=== PATIENT | male | born 1940 | race Caucasian/White ===

== ENCOUNTER → 2017-03-11 | Outpatient (CLI) | payer MEDICARE ==
--- NOTE | 2017-03-13 16:25 | US ---
EXAMINATION TYPE: US prostate transrectal DATE OF EXAM: 03/11/2017 COMPARISON: NONE CLINICAL HISTORY: Elevated PSA R97.2. Elevated PSA This examination was performed using the transrectal probe. EXAM MEASUREMENTS: Gland Size: 6.9 x 3.9 x 5.1cm Volume: 71.12ml Predicted PSA: 8.53 Actual PSA (if available):5.3 Enlarged gland. Heterogeneous in appearance. Possible hypoechoic area right base and left apex vs. he terogeneous tissue IMPRESSION: 1. Focal areas of hypoechogenicity within the right base and left apex that could relate to nodules o r heterogenous parenchyma. Prostate MR could be performed if clinically indicated. 2. Enlarged and heterogenous prostate gland with central zone calcifications.
== END | disposition home or self-care (01) ==
LOC: RADUSMAIN 08:48
PROVIDERS: ATTEND Family Medicine
DX: N40.0 Benign prostatic hyperplasia without lower urinary tract symptoms (principal)
CPT/HCPCS: 76872

== ENCOUNTER → 2018-01-06 | Outpatient (CLI) | payer MEDICARE ==
[2018-01-06 11:44] LABS: Blood Urea Nitrogen 9 mg/dL (9-20)
--- NOTE | 2018-01-06 14:49 | CT ---
EXAMINATION TYPE: CT abdomen pelvis w con DATE OF EXAM: 01/06/2018 COMPARISON: None HISTORY: rectal mass, weakness, hx of cva CT DLP: 1321 mGycm Automated exposure control for dose reduction was used. TECHNIQUE: Helical acquisition of images from the lung bases through the pelvis have been completed. CONTRAST: Performed with Oral Contrast and with IV Contrast, patient injected with 100 mL of Isovue 300. FINDINGS: LUNG BASES: Minimal basilar atelectasis suspected, no pleural or pericardial effusion. Coronary arter y calcifications are present. There may be a small hiatal hernia. AORTA: Dense as described calcifications are present along the aorta and peripheral vascular LIVER/GB: No significant abnormality is appreciated. PANCREAS: No significant abnormality is seen. SPLEEN: Small probable splenules are present. ADRENALS: No significant abnormality is seen. KIDNEYS: No significant abnormality is seen. REPRODUCTIVE ORGANS: Prostate is enlarged and shows associated calcifications, abnormal soft tissue p resent posteriorly is inseparable from the abnormal soft tissue extending to the rectum BOWEL: At the level of the rectum there is soft tissue enhancement extends to the level of the prost ate posteriorly. The abnormal soft tissue is poorly defined but measures approximately 3.3 cm in AP d imension, 4 cm in transverse dimension, 3.8 cm in cephalad to caudal dimension. Abnormal thickening i s present along the sigmoid colon which is indeterminate, there is diverticular change. Small duodena l diverticulum suspected at the third portion of the duodenum FREE AIR: No Free Air visible. ASCITES: None visible. PELVIC ADENOPATHY: None visualized. RETROPERITONEAL ADENOPATHY: No Retroperitoneal Adenopathy visible. URINARY BLADDER: Bladder wall thickening may be due to chronic outlet obstruction. OSSEOUS STRUCTURES: Degenerative disc changes are present in the visualized spine, partial sacraliza tion L5 suspected, there is facet arthropathy. IMPRESSION: FINDINGS COMPATIBLE WITH PATIENT'S HISTORY. SOFT TISSUE MASS IS SUSPECTED DESCRIBED AT THE ANTERIO R ASPECT OF THE RECTUM, THIS IS POORLY DEFINED, POORLY CHARACTERIZED. ADDITIONAL FINDINGS ABOVE
== END ==
LOC: RADCTMAIN 10:08
PROVIDERS: ATTEND Urology
DX: K62.89 Other specified diseases of anus and rectum (principal)
CPT/HCPCS: 82565; 84520; 74177; 36415; Q9967

== ENCOUNTER 2018-01-26 00:06 | Emergency (ER) | payer MEDICARE ==
--- NOTE | 2018-01-26 00:34 | ED ---
General Adult HPI - General Chief complaint: Recheck/Abnormal Lab/Rx Stated complaint: Male Time Seen by Provider: 01/26/18 00:27 Source: patient Mode of arrival: wheelchair Limitations: no limitations - History of Present Illness Initial comments: 's patient is 77-year-old man who presents with severe suprapubic pressure type pain. Patient states that he feels that he has to urinate but has not been able to pass any urine since 9 PM. He had a similar episode once following a surgery and had urinary retention due to the anesthesia. Patient denies other symptoms at the moment. -: hour(s) Location: abdomen Radiation: non-radiation Quality: other Consistency: constant (Pressure) Improves with: none Worsens with: none Associated Symptoms: denies other symptoms - Related Data Allergies Allergy/AdvReac Type Severity Reaction Status Date / Time Penicillins Allergy Unknown Verified 01/26/18 00:12 Childhood Review of Systems ROS Statement: Those systems with pertinent positive or pertinent negative responses have been documented in the HPI. ROS Other: All systems not noted in ROS Statement are negative. Constitutional: Denies: fever, chills Respiratory: Denies: cough, dyspnea Cardiovascular: Denies: chest pain, palpitations Gastrointestinal: Reports: as per HPI, abdominal pain. Denies: nausea, vomiting , diarrhea Genitourinary: Reports: as per HPI, urgency, other (Retention). Denies: testicular pain, testicular mass Neurological: Denies: headache Past Medical History Past Medical History: Coronary Artery Disease (CAD), CVA/TIA, Hyperlipidemia, Hypertension History of Any Multi-Drug Resistant Organisms: None Reported Past Surgical History: Appendectomy Additional Past Surgical History / Comment(s): carotid artery Past Psychological History: No Psychological Hx Reported Smoking Status: Former smoker Past Alcohol Use History: Occasional Past Drug Use History: None Reported General Exam Limitations: no limitations General appearance: alert, in distress Head exam: Present: atraumatic, normocephalic Eye exam: Present: normal appearance Respiratory exam: Present: normal lung sounds bilaterally. Absent: respiratory distress, wheezes, rales, rhonchi, stridor Cardiovascular Exam: Present: regular rate, normal rhythm, normal heart sounds. Absent: systolic murmur, diastolic murmur, rubs, gallop GI/Abdominal exam: Present: soft, guarding, other (There is supra pubic fullness and guarding consistent with bladder). Absent: distended, tenderness, rebound, rigid, pulsatile mass, hernia Extremities exam: Present: normal inspection. Absent: pedal edema Skin exam: Present: warm, dry, intact, normal color. Absent: rash Course Vital Signs 01/26/18 00:07 Temperature 97.8 F Pulse Rate 83 Respiratory 26 H Rate Blood Pressure 198/92 O2 Sat by Pulse 99 Oximetry Disposition Clinical Impression: Urinary retention Disposition: HOME SELF-CARE Condition: Fair Instructions: Urinary Retention in Men (ED) Is patient prescribed a controlled substance at d/c from ED?: No Referrals: Walt Rich DO [Primary Care Provider] - 1-2 days Alberto Garsia MD [STAFF PHYSICIAN] - 1-2 days
[2018-01-26] MEDS ORDERED: LIDOCAINE URO-JET JELLY 2% 5 ML KIT URETHRAL ONE (00:39)
[2018-01-26 01:47] LABS: Appearance,Urine Clear (Clear); Bilirubin,Urine Negative (Negative); Blood,Urine Trace (Negative); Color,Urine Colorless; Glucose,Urine (UA) Negative (Negative); Ketones,Urine Negative (Negative); Leukocyte Esterase,Urine Negative (Negative); Nitrite,Urine Negative (Negative); Protein,Urine Negative (Negative); RBC,Urine <1 /hpf (0-5); Specific Gravity,Urine 1.003 (1.001-1.035); Urobilinogen,Urine <2.0 mg/dL (<2.0); WBC,Urine <1 /hpf (0-5)
[2018-01-26 02:09] VITALS: BP 145/88; PULSE 79; RESP 16; TEMP 97.3
== END 2018-01-26 02:08 | disposition home or self-care (01) ==
LOC: EC 00:06 → SUPCPDRO 00:06 → EC 02:08
DX: R33.9 Retention of urine, unspecified (principal); R10.30 Lower abdominal pain, unspecified; Z87.891 Personal history of nicotine dependence; Z88.0 Allergy status to penicillin; Z90.49 Acquired absence of other specified parts of digestive tract
CPT/HCPCS: 81001; 99284

== ENCOUNTER 2018-01-28 20:41 | Emergency (ER) | payer MEDICARE ==
--- NOTE | 2018-01-28 21:11 | ED ---
General Adult HPI - General Chief complaint: Urogenital Stated complaint: Not able to urinate Source: patient Mode of arrival: wheelchair Limitations: no limitations - History of Present Illness Initial comments: Dictation was produced using [employer] dictation software. please excuse any grammatical, word or spelling errors. Chief Complaint: 77-year-old male with recent visit for urinary retention presents with recurrent urinary retention. History of Present Illness: Patient is a 77-year-old male who was seen in our emergency department yesterday. Patient states he had an episode of urinary retention. He was seen yesterday and a Mcfarlane was placed. He was discharged and told to follow up outpatient urology. Patient was at the urology clinic when the Mcfarlane was removed. He states that he seen Dr. Hudson. Mcfarlane was removed and patient did not have any complications urinating. Patient presents today with repeated discomfort and inability to urinate. last urination was approximately 2 hours ago. Patient past medical history of coronary artery disease, CVA, hyperlipidemia, hypertension. The ROS documented in this emergency department record has been reviewed and confirmed by me. Those systems with pertinent positive or negative responses have been documented in the HPI. All other systems are other negative and/or noncontributory. - Related Data Home Medications Medication Instructions Recorded Confirmed Aspirin 81 mg PO DAILY 01/28/18 01/28/18 Clopidogrel [Plavix] 75 mg PO DAILY 01/28/18 01/28/18 Finasteride [Proscar] 5 mg PO DAILY 01/28/18 01/28/18 Lisinopril [Zestril] 20 mg PO DAILY 01/28/18 01/28/18 Simvastatin 40 mg PO DAILY 01/28/18 01/28/18 Tamsulosin [Flomax] 0.4 mg PO DAILY 01/28/18 01/28/18 Allergies Allergy/AdvReac Type Severity Reaction Status Date / Time Penicillins Allergy Unknown Verified 01/28/18 20:46 Childhood Review of Systems ROS Statement: Those systems with pertinent positive or pertinent negative responses have been documented in the HPI. ROS Other: All systems not noted in ROS Statement are negative. Past Medical History Past Medical History: Coronary Artery Disease (CAD), CVA/TIA, Hyperlipidemia, Hypertension History of Any Multi-Drug Resistant Organisms: None Reported Past Surgical History: Appendectomy Additional Past Surgical History / Comment(s): carotid artery Past Psychological History: No Psychological Hx Reported Smoking Status: Former smoker Past Alcohol Use History: Occasional Past Drug Use History: None Reported General Exam - General Exam Comments Initial Comments: Physical examination: General: Alert and oriented -4, acute distress HEENT: Normocephalic atraumatic, extraocular muscles intact, pupils equal round reactive to light and accommodation Cardiovascular: Heart is regular rate and rhythm, no murmurs rubs or gallops Chest: Lungs clear to auscultation bilaterally, no tenderness to palpation of the chest wall Abdomen: Suprapubic fullness Musculoskeletal: No peripheral edema, DP pulses and radial pulses 2+ bilaterally Neurologic: Cranial nerves II-12 intact, no focal neurologic deficits, no ataxia Skin: No rashes or lesions Limitations: no limitations Course Vital Signs 01/28/18 01/28/18 20:44 23:02 Temperature 97.9 F 97.6 F Pulse Rate 82 68 Respiratory 16 18 Rate Blood Pressure 165/79 165/77 O2 Sat by Pulse 99 98 Oximetry Medical Decision Making - Medical Decision Making ED course: 77-year-old male with recent history of urinary retention status post Mcfarlane removal today presents with recurrent urinary retention. Vital signs upon arrival are within normal limits. Patient appears uncomfortable. There is suprapubic fullness. Bladder scan showed greater than 1 L of urine. Mcfarlane catheter was placed using 16-Spanish Mcfarlane. Patient reports immediate relief after Mcfarlane was placed. Gross urine evaluation showed clear urine.Laboratory evaluation obtained. No signs of kidney failure. Creatinine is 0.76. Urine is 9. Urinalysis shows small blood but no signs of infection. Patient discharged with Mcfarlane. He is told to follow-up with neurology again. Patient is understandable and agreeable to plan. - Lab Data Result diagrams: 01/28/18 21:20 Lab Results 01/28/18 01/28/18 Range/Units 21:20 21:20 Sodium 139 (137-145) mmol/L Potassium 3.4 L (3.5-5.1) mmol/L Chloride 107 (98-107) mmol/L Carbon Dioxide 18 L (22-30) mmol/L Anion Gap 14 mmol/L BUN 9 (9-20) mg/dL Creatinine 0.76 (0.66-1.25) mg/dL Est GFR (CKD-EPI)AfAm >90 (>60 ml/min/1.73 sqM) Est GFR (CKD-EPI)NonAf 88 (>60 ml/min/1.73 sqM) Glucose 102 H (74-99) mg/dL Calcium 8.9 (8.4-10.2) mg/dL Urine Color Light Yellow Urine Appearance Clear (Clear) Urine pH 6.0 (5.0-8.0) Ur Specific Foster 1.003 (1.001-1.035) Urine Protein Negative (Negative) Urine Glucose (UA) Negative (Negative) Urine Ketones Negative (Negative) Urine Blood Small H (Negative) Urine Nitrite Negative (Negative) Urine Bilirubin Negative (Negative) Urine Urobilinogen <2.0 (<2.0) mg/dL Ur Leukocyte Esterase Negative (Negative) Urine RBC <1 (0-5) /hpf Amorphous Sediment Rare H (None) /hpf Disposition Clinical Impression: Urinary retention Disposition: HOME SELF-CARE Condition: Good Instructions: Urinary Retention in Men (ED) Is patient prescribed a controlled substance at d/c from ED?: No Referrals: Walt Rich DO [Primary Care Provider] - 1-2 days Time of Disposition: 00:15
[2018-01-28 21:51] LABS: Amorphous Sediment,Urine Rare /hpf; Appearance,Urine Clear (Clear); Bilirubin,Urine Negative (Negative); Blood,Urine Small (Negative); Color,Urine Light Yellow; Glucose,Urine (UA) Negative (Negative); Ketones,Urine Negative (Negative); Leukocyte Esterase,Urine Negative (Negative); Nitrite,Urine Negative (Negative); Protein,Urine Negative (Negative); RBC,Urine <1 /hpf (0-5); Specific Gravity,Urine 1.003 (1.001-1.035); Urobilinogen,Urine <2.0 mg/dL (<2.0)
[2018-01-28 22:21] LABS: Anion Gap 14 mmol/L; Blood Urea Nitrogen 9 mg/dL (9-20); Calcium 8.9 mg/dL (8.4-10.2); Carbon Dioxide 18 mmol/L (22-30); Chloride 107 mmol/L (98-107); Glucose 102 mg/dL (74-99); Potassium 3.4 mmol/L (3.5-5.1); Sodium 139 mmol/L (137-145)
[2018-01-28 23:03] VITALS: RESP 18
[2018-01-29 00:32] VITALS: BP 175/82; PULSE 72; TEMP 97.9
== END 2018-01-29 00:25 | disposition home or self-care (01) ==
LOC: EC 20:41
DX: R33.9 Retention of urine, unspecified (principal); I25.10 Atherosclerotic heart disease of native coronary artery without angina pectoris; E78.5 Hyperlipidemia, unspecified; I10 Essential (primary) hypertension; Z86.73 Personal history of transient ischemic attack (TIA), and cerebral infarction without residual deficits; Z87.891 Personal history of nicotine dependence; Z79.82 Long term (current) use of aspirin; Z79.02 Long term (current) use of antithrombotics/antiplatelets; Z79.899 Other long term (current) drug therapy; Z88.0 Allergy status to penicillin; Z98.890 Other specified postprocedural states
CPT/HCPCS: 36415; 51702; 80048; 81001; 87086; 99284

== ENCOUNTER → 2018-02-07 | Outpatient (CLI) | payer MEDICARE ==
--- NOTE | 2018-02-08 09:24 | NM ---
EXAMINATION TYPE: NM bone scan whole body DATE OF EXAM: 02/07/2018 COMPARISON: CT 01/06/2018 HISTORY: Prostate cancer Delayed whole-body scanning was performed following the injection of 25 mCi Tc 99m MDP. Images acqui red 4 hours post injection. FINDINGS: There is intense abnormal uptake along the left acetabulum. Abnormal uptake involving the knees, ankles, feet and shoulders likely post arthritic. Nonspecific uptake at the lumbosacral junction and throughout the thoracic spine. Abnormal uptake in the left sternoclavicular joint. Finding nonspecific. Nonspecific uptake along the lateral margin of the left clavicle. IMPRESSION: 1. Abnormal uptake involving the left acetabulum is intense but demonstrates no corresponding CT abno rmality. Finding therefore nonspecific. 2 nonspecific uptake along the lateral margin of the left sternum which x-ray correlation is recommen ded. 3. Uptake throughout the thoracic vertebral column is nonspecific but likely degenerative. Correlate with x-ray. 4 abnormal uptake along the left clavicle correlate with x-ray.
== END | disposition home or self-care (01) ==
LOC: RADNMMAIN 11:14
PROVIDERS: ATTEND Surgery
DX: C61 Malignant neoplasm of prostate (principal)
CPT/HCPCS: 78306; A9503

== ENCOUNTER → 2018-02-28 | Outpatient (CLI) | payer MEDICARE | LOC: LABWHC1 13:50 | PROVIDERS: ATTEND Radiology Radiation Oncology | DX: C61 Malignant neoplasm of prostate (principal) | CPT/HCPCS: 36415; 84153 ==

== ENCOUNTER → 2018-03-23 | Outpatient (CLI) | payer MEDICARE ==
--- NOTE | 2018-03-25 09:18 | MR ---
EXAMINATION TYPE: MR pelvis wo/w con DATE OF EXAM: 03/23/2018 COMPARISON: CT abdomen and pelvis January 06, 2018. Nuclear medicine bone scan February 07, 2018 IMAGE QUALITY: Good. 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 PSA: 10.3 ng/ml from February 28, 2018. Recent Biopsy and Date: January 25, 2018 Pathology Report (If Applicable): See above TECHNIQUE: Examination was performed using a 3T MRI without an endorectal coil. Multiparametric imaging was perf ormed with T2 multiplanar sequences, axial diffusion weighted imaging and dynamic contrast enhanced i maging, utilizing 7.5 mL intravenous Gadavist gadolinium contrast. FINDINGS: PROSTATE VOLUME: 4.5 cm SI x 4.1 cm AP x 4.3 cm LR Vol= 38.90 cc PSA DENSITY: 4.668 ng/ml/cc There is transitional zone hypertrophy, peripheral zone shows large focal area of mildly hypointense signal on ADC mapping with mildly increased signal on diffusion weighted images centered to the right of midline but extending to left of midline measuring greater than 1.5 cm roughly 3.5 cm transversel y image 180 series 607. Corresponding irregular lesion of low T2 signal noted. There is irregularity of the posterior margin or capsule consistent with extraprostatic extension, there appears to be invo lvement of the central aspect of the bilateral seminal vesicles near the base seen best on axial imag e 15, contiguous inferior extension to involve mid segments is present with extracapsular extension a s there is indistinct fat plane from anterior wall of rectum inferiorly near the apex. CT shows neville r visualization of larger irregular mass this is best seen on T1-weighted images axial image 11. Kit esponding to area of concern axial image [address] Transitional known shows heterogeneity signal without areas of definitive restricted diffusion. Bladder is poorly distended with prominent trabeculae and thickened wall up to 11 mm. There are diverticula in the visualized colon. No suspicious perirectal or periprostatic adenopathy i s clearly seen. Visualized bone shows suspicious focal lesion near recent left ischial tuberosity measuring roughly 3 .0 x 1.4 cm axial image 21 with subtle restricted diffusion. This correlates with recent bone scan fi ndings. IMPRESSION: Large irregular cancer with extraprostatic extension. Suspected left bone metastatic lesion. Highest Assessment Category: 5 MRI Stage: T 4 N 0 M 1b based on review of pelvic images. False negative rates for MRI range from 5-20% depending on risk profile. Assessment Categories: 1 ? Very low (clinically significant cancer is highly unlikely to be present) 2 ? Low (clinically significant cancer is unlikely to be present) 3 ? Intermediate (the presence of clinically significant cancer is equivocal) 4 ? High (clinically significant cancer is likely to be present) 5 ? Very high (clinically significant cancer is highly likely to be present) Locations: PZ = peripheral zone; TZ = transition zone CZ=central zone; AFS = anterior fibromuscular stroma a=anterior half (i.e. PZa=anterior half of peripheral zone); pm= posterior medial (i.e PZpm) pl = postero-lateral (i.e. PZpl); p = posterior half (i.e. TZp) ; a = anterior half (i.e TZa or P Za) Other: N=no or no; E= equivocal; Y=yes EPE = extraprostatic extension NVB = neurovascular bundle NA = not applicable/not available
== END ==
LOC: RADMRIMAIN 14:13
PROVIDERS: ATTEND Radiology Radiation Oncology
DX: C61 Malignant neoplasm of prostate (principal)
CPT/HCPCS: 72197; A9585

== ENCOUNTER → 2018-08-25 | Outpatient (CLI) | payer MEDICARE ==
--- NOTE | 2018-08-25 16:17 | NM ---
EXAMINATION TYPE: NM bone scan whole body DATE OF EXAM: 08/25/2018 COMPARISON: Bone scan 02/07/2018 HISTORY: Prostate carcinoma Delayed whole-body scanning was performed following the injection of 23.9 mCi Tc 99m MDP. Images acq uired 3.5 hours post injection. FINDINGS: Uptake at the level of the sternoclavicular joint on the left is again noted. Soft tissue uptake is n ormal. Uptake within the left knee and ankle is again seen and is likely degenerative. Uptake in the left ischium is somewhat less conspicuous than on prior exam. Prevertebral uptake is similar and like ly degenerative. 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 Sternoclavicular junction uptake again seen on the left.
== END ==
LOC: RADNMMAIN 10:03
PROVIDERS: ATTEND Radiology Radiation Oncology
DX: C61 Malignant neoplasm of prostate (principal); C79.51 Secondary malignant neoplasm of bone
CPT/HCPCS: 84153; 78306; A9503

== ENCOUNTER → 2019-10-25 | Outpatient (CLI) | payer OTHER ==
--- NOTE | 2019-10-25 14:59 | NM ---
EXAMINATION TYPE: NM bone scan whole body DATE OF EXAM: 10/25/2019 COMPARISON: 08/25/2018 HISTORY: Prostate carcinoma Delayed whole-body scanning was performed following the injection of 23.5 mCi Tc 99m MDP. Images acq uired 4 hours post injection. FINDINGS: There is new mild to moderate intensity uptake involving the mid cervical spine on the right. Stable abnormal uptake involving the left shoulder likely post arthritic. Stable abnormal uptake involving the sternoclavicular joint on the left stable from prior exam and li pao are post arthritic. Abnormal uptake involving the left knee, foot and ankle is stable and likely post arthritic. New uptake involving the right knee likely post arthritic. There is improvement in the uptake previously described within the left acetabulum. No new areas of a bnormal uptake are seen. IMPRESSION: 1. Stable uptake involving the sternoclavicular joint. 2. There is improvement of abnormal uptake previously described involving the left acetabulum which w as suspected to be metastatic area 3. New mild to moderate intensity uptake involving the cervical spine on the right likely post arthri tic.
== END | disposition home or self-care (01) ==
LOC: RADNMMAIN 09:55
PROVIDERS: ATTEND Radiology Radiation Oncology
DX: C61 Malignant neoplasm of prostate (principal); Z92.3 Personal history of irradiation; Z79.818 Long term (current) use of other agents affecting estrogen receptors and estrogen levels; Z87.891 Personal history of nicotine dependence; R94.8 Abnormal results of function studies of other organs and systems
CPT/HCPCS: 84153; 78306; 36415; A9503

== ENCOUNTER 2020-03-05 11:45 | Emergency (ER) | payer OTHER, MEDICARE ==
[2020-03-05] MEDS ORDERED: ACETAMINOPHEN TAB 500 MG TAB PO STA (13:00)
--- NOTE | 2020-03-05 13:18 | ED ---
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 Reports that the last 3 days feels like he has been more weak generalized. Denies any focal area of weakness or pain. Denies any chest pain, sob, abdominal pain. I did note a mild dry cough when evaluated patient. Denies any other complaints. Systemic: Pt denies fatigue, fever/chills, rash. Pt denies weakness, night sweats, weight loss. Neuro: Pt denies headache, visual disturbances, syncope or pre-syncope. HEENT: Pt denies ocular discharge or irritation, otalgia, rhinorrhea, pharyngitis or notable lymphadenopathy. Cardiopulmonary: Pt denies chest pain, SOB, heart palpitations, dyspnea on exertion. Abdominal/GI: Pt denies abdominal pain, n/v/d. : Pt denies dysuria, burning w/ urination, frequency/urgency. Denies new onset urinary or bowel incontinence. MSK: Pt denies myalgia, loss of strength or function in extremities. Neuro: Pt denies paresthesias. - Related Data Home Medications Medication Instructions Recorded Confirmed Aspirin 81 mg PO DAILY 01/28/18 01/28/18 Clopidogrel [Plavix] 75 mg PO DAILY 01/28/18 01/28/18 Finasteride [Proscar] 5 mg PO DAILY 01/28/18 01/28/18 Simvastatin 40 mg PO DAILY 01/28/18 01/28/18 Tamsulosin [Flomax] 0.4 mg PO DAILY 01/28/18 01/28/18 lisinopriL [Zestril] 20 mg PO DAILY 01/28/18 01/28/18 Previous Rx's Medication Instructions Recorded Albuterol Inhaler [Ventolin Hfa 1 puff INHALATION RT-QID PRN #1 03/05/20 Inhaler] inhaler Azithromycin [Zithromax Z-pack (6 0 mg PO DIRECTED #6 tab 03/05/20 tabs)] Allergies Allergy/AdvReac Type Severity Reaction Status Date / Time Penicillins Allergy Unknown Verified 03/05/20 12:01 Childhood Review of Systems ROS Statement: Those systems with pertinent positive or pertinent negative responses have been documented in the HPI. ROS Other: All systems not noted in ROS Statement are negative. Past Medical History Past Medical History: Coronary Artery Disease (CAD), CVA/TIA, Hyperlipidemia, Hypertension History of Any Multi-Drug Resistant Organisms: None Reported Past Surgical History: Appendectomy Additional Past Surgical History / Comment(s): carotid artery Past Psychological History: No Psychological Hx Reported Smoking Status: Former smoker Past Alcohol Use History: Occasional Past Drug Use History: None Reported General Exam - General Exam Comments Initial Comments: Constitutional: NAD, AOX3, Pt has pleasant affect. HEENT: NC/AT, trachea midline, neck supple, no lymphadenopathy. Posterior pharynx non erythematous, without exudates. External ears appear normal, without discharge. Mucous membranes moist. Eyes PERRLA, EOM intact. There is no scleral icterus. No pallor noted. Cardiopulmonary: RRR, no murmurs, rubs or gallops, no JVD noted. Lungs CTAB in anterior and posterior pool. No peripheral edema. Abdominal exam: Abdomen soft and non-distended. Abdomen non-tender to palpation in all 4 quadrants. Bowel sounds active in LLQ. No hepatosplenomegaly. No ecchymosis Neuro: CN II-XII intact. No nuchal rigidity. No raccon eyes, no feliciano sign, no hemotympanum. No cervical spinal tenderness. MSK: Full active ROM in upper and lower extremities, 5/5 stregnth. 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 Reports that the last 3 days feels like he has been more weak generalized. Denies any focal area of weakness or pain. Then a chest management with abdominal pain. Patient does not report any coughing however I did note a mild dry cough when evaluated patient. Denies any other complaints. Patient vital signs please fever patient administered antipyretic. Physical exam negative for acute pathology. Laboratory investigations revealed mild neutropenia, lymphocytopenia. Coronavirus is positive. Chest x-ray displayed COPD left upper lobe peripheral infiltrate correlation for pneumonia. Patient was offered admission but preferred to go home follow-up with his primary care provider and return for any worsening symptoms. Patient was placed on azithromycin. Patient will follow-up with primary care provider and return to ER if any worsening symptoms. Case discussed with Dr. Tineo. - Lab Data Result diagrams: 03/05/20 13:31 03/05/20 13:31 Lab Results 03/05/20 03/05/20 03/05/20 Range/Units 13:31 13:31 13:31 WBC 2.9 L (3.8-10.6) k/uL RBC 4.70 (4.30-5.90) m/uL Hgb 15.8 (13.0-17.5) gm/dL Hct 44.8 (39.0-53.0) % MCV 95.2 (80.0-100.0) fL MCH 33.6 (25.0-35.0) pg MCHC 35.3 (31.0-37.0) g/dL RDW 12.1 (11.5-15.5) % Plt Count 104 L (150-450) k/uL MPV 7.3 Neutrophils % 82 % Lymphocytes % 8 % Monocytes % 7 % Eosinophils % 1 % Basophils % 2 % Neutrophils # 2.4 (1.3-7.7) k/uL Lymphocytes # 0.2 L (1.0-4.8) k/uL Monocytes # 0.2 (0-1.0) k/uL Eosinophils # 0.0 (0-0.7) k/uL Basophils # 0.1 (0-0.2) k/uL Sodium (137-145) mmol/L Potassium (3.5-5.1) mmol/L Chloride (98-107) mmol/L Carbon Dioxide (22-30) mmol/L Anion Gap mmol/L BUN (9-20) mg/dL Creatinine (0.66-1.25) mg/dL Est GFR (CKD-EPI)AfAm (>60 ml/min/1.73 sqM) Est GFR (CKD-EPI)NonAf (>60 ml/min/1.73 sqM) Glucose (74-99) mg/dL Plasma Lactic Acid Kishore (0.7-2.0) mmol/L Calcium (8.4-10.2) mg/dL Total Bilirubin (0.2-1.3) mg/dL AST (17-59) U/L ALT (4-49) U/L Alkaline Phosphatase (38-126) U/L Total Protein (6.3-8.2) g/dL Albumin (3.5-5.0) g/dL Urine Color Yellow Urine Appearance Clear (Clear) Urine pH 6.0 (5.0-8.0) Ur Specific [place] 1.028 (1.001-1.035) Urine Protein 1+ H (Negative) Urine Glucose (UA) Negative (Negative) Urine Ketones 1+ H (Negative) Urine Blood Negative (Negative) Urine Nitrite Negative (Negative) Urine Bilirubin Negative (Negative) Urine Urobilinogen 2.0 (<2.0) mg/dL Ur Leukocyte Esterase Negative (Negative) Urine RBC 2 (0-5) /hpf Urine WBC 4 (0-5) /hpf Hyaline Casts 3 H (0-2) /lpf Urine Mucus Many H (None) /hpf Coronavirus (PCR) Detected A (Not Detectd) Influenza Type A RNA (Not Detectd) Influenza Type B (PCR) (Not Detectd) 03/05/20 03/05/20 03/05/20 Range/Units 13:31 13:31 14:01 WBC (3.8-10.6) k/uL RBC (4.30-5.90) m/uL Hgb (13.0-17.5) gm/dL Hct (39.0-53.0) % MCV (80.0-100.0) fL MCH (25.0-35.0) pg MCHC (31.0-37.0) g/dL RDW (11.5-15.5) % Plt Count (150-450) k/uL MPV Neutrophils % % Lymphocytes % % Monocytes % % Eosinophils % % Basophils % % Neutrophils # (1.3-7.7) k/uL Lymphocytes # (1.0-4.8) k/uL Monocytes # (0-1.0) k/uL Eosinophils # (0-0.7) k/uL Basophils # (0-0.2) k/uL Sodium 135 L (137-145) mmol/L Potassium 4.5 (3.5-5.1) mmol/L Chloride 102 (98-107) mmol/L Carbon Dioxide 23 (22-30) mmol/L Anion Gap 10 mmol/L BUN 12 (9-20) mg/dL Creatinine 0.93 (0.66-1.25) mg/dL Est GFR (CKD-EPI)AfAm >90 (>60 ml/min/1.73 sqM) Est GFR (CKD-EPI)NonAf 78 (>60 ml/min/1.73 sqM) Glucose 107 H (74-99) mg/dL Plasma Lactic Acid [place] 1.2 (0.7-2.0) mmol/L Calcium 9.1 (8.4-10.2) mg/dL Total Bilirubin 1.0 (0.2-1.3) mg/dL AST 48 (17-59) U/L ALT 30 (4-49) U/L Alkaline Phosphatase 74 (38-126) U/L Total Protein 7.7 (6.3-8.2) g/dL Albumin 4.3 (3.5-5.0) g/dL Urine Color Urine Appearance (Clear) Urine pH (5.0-8.0) Ur Specific [place] (1.001-1.035) Urine Protein (Negative) Urine Glucose (UA) (Negative) Urine Ketones (Negative) Urine Blood (Negative) Urine Nitrite (Negative) Urine Bilirubin (Negative) Urine Urobilinogen (<2.0) mg/dL Ur Leukocyte Esterase (Negative) Urine RBC (0-5) /hpf Urine WBC (0-5) /hpf Hyaline Casts (0-2) /lpf Urine Mucus (None) /hpf Coronavirus (PCR) (Not Detectd) Influenza Type A RNA Not Detected (Not Detectd) Influenza Type B (PCR) Not Detected (Not Detectd) Disposition Clinical Impression: COVID-19 Disposition: HOME SELF-CARE Condition: Stable Instructions (If sedation given, give patient instructions): Upper Respiratory Infection (ED) Additional Instructions: Follow up with PCP tomorrow. Return to ED with any worsening symptoms. Prescriptions: Albuterol Inhaler [Ventolin Hfa Inhaler] 1 puff INHALATION RT-QID PRN #1 inhaler PRN Reason: wheezing Azithromycin [Zithromax Z-pack (6 tabs)] 0 mg PO DIRECTED #6 tab Is patient prescribed a controlled substance at d/c from ED?: No Referrals: [facility],Clinic [Primary Care Provider] - 1-2 days
[2020-03-05 13:57] LABS: Basophils # (A) 0.1 k/uL (0-0.2); Basophils % (A) 2 %; Eosinophils % (A) 1 %; HCT 44.8 % (39.0-53.0); HGB 15.8 gm/dL (13.0-17.5); Lymphocytes # (A) 0.2 k/uL (1.0-4.8); Lymphocytes % (A) 8 %; MCH 33.6 pg (25.0-35.0); MCHC 35.3 g/dL (31.0-37.0); MCV 95.2 fL (80.0-100.0); Mean Platelet Volume 7.3; Monocytes # (A) 0.2 k/uL (0-1.0); Monocytes % (A) 7 %; Neutrophils # (A) 2.4 k/uL (1.3-7.7); Neutrophils % (A) 82 %; Platelet Count 104 k/uL (150-450); RDW 12.1 % (11.5-15.5); WBC 2.9 k/uL (3.8-10.6)
[2020-03-05 14:01] LABS: Appearance,Urine Clear (Clear); Bilirubin,Urine Negative (Negative); Blood,Urine Negative (Negative); Color,Urine Yellow; Glucose,Urine (UA) Negative (Negative); Hyaline Casts,Urine 3 /lpf (0-2); Ketones,Urine 1+ (Negative); Leukocyte Esterase,Urine Negative (Negative); Mucus,Urine Many /hpf; Nitrite,Urine Negative (Negative); Protein,Urine 1+ (Negative); RBC,Urine 2 /hpf (0-5); Specific Gravity,Urine 1.028 (1.001-1.035); WBC,Urine 4 /hpf (0-5)
[2020-03-05 14:05] LABS: ALT 30 U/L (4-49); AST 48 U/L (17-59); African American GFR (CKD) >90 (>60 ml/min/1.73 sqM); Albumin 4.3 g/dL (3.5-5.0); Alkaline Phosphatase 74 U/L (38-126); Anion Gap 10 mmol/L; Blood Urea Nitrogen 12 mg/dL (9-20); Calcium 9.1 mg/dL (8.4-10.2); Carbon Dioxide 23 mmol/L (22-30); Chloride 102 mmol/L (98-107); Glucose 107 mg/dL (74-99); Non-African American GFR(CKD) 78 (>60 ml/min/1.73 sqM); Potassium 4.5 mmol/L (3.5-5.1); Sodium 135 mmol/L (137-145); Total Protein 7.7 g/dL (6.3-8.2)
--- NOTE | 2020-03-05 14:15 | XR ---
EXAMINATION TYPE: XR chest 2V DATE OF EXAM: 03/05/2020 COMPARISON: NONE TECHNIQUE: PA and lateral views submitted. HISTORY: Fever and cough FINDINGS: There is a vague consolidation within the peripheral margin of the left upper lobe. Faint nodularity in the right upper lobe. Heart prominent with no pleural effusion, or overt failure or pneumothorax. Underlying COPD and diffuse osteopenia noted. Atherosclerotic change aorta. Hypertrophic and degenera tive change of the spine. IMPRESSION: 1. COPD with left upper lobe peripheral infiltrate correlate for pneumonia. Vague nodularity in the r ight upper lobe could be followed with short-term follow-up CT scan to assess for nodule.
[2020-03-05] MEDS ORDERED: AZITHROMYCIN 500 MG in SODIUM CHLORIDE 0.9% 250 ML IVPB STA (14:26)
[2020-03-05] MEDS ORDERED: AZITHROMYCIN 500 MG TAB PO STA (15:00)
[2020-03-05 15:11] VITALS: BP 100/49; PULSE 70; RESP 18; TEMP 99
== END 2020-03-05 15:10 | disposition home or self-care (01) ==
LOC: EC 11:45
DX: U07.1 COVID-19 (principal); E78.5 Hyperlipidemia, unspecified; I10 Essential (primary) hypertension; I69.351 Hemiplegia and hemiparesis following cerebral infarction affecting right dominant side; Z79.82 Long term (current) use of aspirin; Z79.01 Long term (current) use of anticoagulants; Z79.899 Other long term (current) drug therapy; Z87.891 Personal history of nicotine dependence; Z88.0 Allergy status to penicillin
CPT/HCPCS: 36415; 71046; 80053; 81001; 83605; 85025; 87040; 87502; 87635; 99285

== ENCOUNTER 2020-03-11 10:25 | Inpatient (IN) | payer OTHER, MEDICARE ==
[2020-03-11] MEDS ORDERED: ONDANSETRON 4 MG/2 ML VIAL IVP STA (10:50)
[2020-03-11] MEDS ORDERED: SODIUM CHLORIDE 0.9% 1,000 ML IV STA (10:50)
--- NOTE | 2020-03-11 11:00 | ED ---
General Adult HPI - General Chief complaint: Nausea/Vomiting/Diarrhea Stated complaint: No appetite,cough Time Seen by Provider: 03/11/20 10:35 Source: patient, RN notes reviewed Mode of arrival: wheelchair Limitations: physical limitation - History of Present Illness Initial comments: 79-year-old male with a past medical history of CAD, CVA, hyperlipidemia, hypertension who is covid Positive as of 03/05/2020 presents to the emergency room for a chief complaint of diarrhea. Patient reports that he has had diarrhea several times daily for a week now. He reports he is not able to keep anything down. He feels that he is dehydrated and weak. Admits to slight nausea and did vomit x 1 today. He does admit to a slight cough. He denies chest pain shortness of breath. he states he has continued to have fevers on and off. Patient has no other complaints at this time including shortness of breath, chest pain, abdominal pain, nausea or vomiting, headache, or visual changes. - Related Data Home Medications Medication Instructions Recorded Confirmed Aspirin 81 mg PO DAILY 01/28/18 01/28/18 Clopidogrel [Plavix] 75 mg PO DAILY 01/28/18 01/28/18 Finasteride [Proscar] 5 mg PO DAILY 01/28/18 01/28/18 Simvastatin 40 mg PO DAILY 01/28/18 01/28/18 Tamsulosin [Flomax] 0.4 mg PO DAILY 01/28/18 01/28/18 lisinopriL [Zestril] 20 mg PO DAILY 01/28/18 01/28/18 Previous Rx's Medication Instructions Recorded Albuterol Inhaler [Ventolin Hfa 1 puff INHALATION RT-QID PRN #1 03/05/20 Inhaler] inhaler Azithromycin [Zithromax Z-pack (6 0 mg PO DIRECTED #6 tab 03/05/20 tabs)] Allergies Allergy/AdvReac Type Severity Reaction Status Date / Time Penicillins Allergy Unknown Verified 03/11/20 10:33 Childhood Review of Systems ROS Statement: Those systems with pertinent positive or pertinent negative responses have been documented in the HPI. ROS Other: All systems not noted in ROS Statement are negative. Past Medical History Past Medical History: Coronary Artery Disease (CAD), CVA/TIA, Hyperlipidemia, Hypertension History of Any Multi-Drug Resistant Organisms: None Reported Past Surgical History: Appendectomy Additional Past Surgical History / Comment(s): carotid artery Past Psychological History: No Psychological Hx Reported Smoking Status: Former smoker Past Alcohol Use History: Occasional Past Drug Use History: None Reported General Exam Limitations: physical limitation General appearance: alert, in no apparent distress Head exam: Present: atraumatic, normocephalic, normal inspection Eye exam: Present: normal appearance, PERRL, EOMI. Absent: scleral icterus, conjunctival injection, periorbital swelling ENT exam: Present: normal exam, mucous membranes moist Neck exam: Present: normal inspection. Absent: tenderness, meningismus, lymphadenopathy Respiratory exam: Present: normal lung sounds bilaterally. Absent: respiratory distress, wheezes, rales, rhonchi, stridor Cardiovascular Exam: Present: regular rate, normal rhythm, normal heart sounds. Absent: systolic murmur, diastolic murmur, rubs, gallop, clicks GI/Abdominal exam: Present: soft, normal bowel sounds. Absent: distended, tenderness, guarding, rebound, rigid Course Vital Signs 03/11/20 10:26 Temperature 97.0 F L Pulse Rate 70 Respiratory 18 Rate Blood Pressure 126/82 O2 Sat by Pulse 96 Oximetry EKG Findings - EKG Comments: EKG Findings:: Normal sinus rhythm, ventricular rate 71, OH interval 170, QTC 423 Medical Decision Making - Medical Decision Making Vitals are stable. CBC does show lymphocytosis. CMP shows evidence of acute renal failure with a creatinine elevated at 2.33. Urinalysis shows 73 white blood cells with few bacteria. Patient was started on Rocephin. Case was discussed with Dr. Bajwa who is agreeable to nephrology consultation and requests ultrasound of the kidneys ureter and bladder. - Lab Data Result diagrams: 03/11/20 10:54 03/11/20 10:54 Lab Results 03/11/20 03/11/20 03/11/20 Range/Units 10:54 10:54 10:54 WBC 5.5 (3.8-10.6) k/uL RBC 4.69 (4.30-5.90) m/uL Hgb 15.3 (13.0-17.5) gm/dL Hct 44.0 (39.0-53.0) % MCV 93.8 (80.0-100.0) fL MCH 32.7 (25.0-35.0) pg MCHC 34.8 (31.0-37.0) g/dL RDW 12.7 (11.5-15.5) % Plt Count 184 D (150-450) k/uL MPV 7.5 Neutrophils % 91 % Lymphocytes % 4 % Monocytes % 4 % Eosinophils % 1 % Basophils % 0 % Neutrophils # 5.0 (1.3-7.7) k/uL Lymphocytes # 0.2 L (1.0-4.8) k/uL Monocytes # 0.2 (0-1.0) k/uL Eosinophils # 0.0 (0-0.7) k/uL Basophils # 0.0 (0-0.2) k/uL Sodium 139 (137-145) mmol/L Potassium 3.6 (3.5-5.1) mmol/L Chloride 106 (98-107) mmol/L Carbon Dioxide 20 L (22-30) mmol/L Anion Gap 13 mmol/L BUN 32 H (9-20) mg/dL Creatinine 2.33 H (0.66-1.25) mg/dL Est GFR (CKD-EPI)AfAm 30 (>60 ml/min/1.73 sqM) Est GFR (CKD-EPI)NonAf 26 (>60 ml/min/1.73 sqM) Glucose 127 H (74-99) mg/dL Calcium 8.6 (8.4-10.2) mg/dL Magnesium 1.9 (1.6-2.3) mg/dL Total Bilirubin 1.1 (0.2-1.3) mg/dL AST 66 H (17-59) U/L ALT 38 (4-49) U/L Alkaline Phosphatase 78 (38-126) U/L Troponin I (0.000-0.034) ng/mL Total Protein 6.9 (6.3-8.2) g/dL Albumin 3.7 (3.5-5.0) g/dL Amylase 86 (30-110) U/L Lipase 236 (23-300) U/L Urine Color Yellow Urine Appearance Cloudy (Clear) Urine pH 5.5 (5.0-8.0) Ur Specific [place] 1.015 (1.001-1.035) Urine Protein 1+ H (Negative) Urine Glucose (UA) Trace H (Negative) Urine Ketones Negative (Negative) Urine Blood Trace H (Negative) Urine Nitrite Negative (Negative) Urine Bilirubin Negative (Negative) Urine Urobilinogen <2.0 (<2.0) mg/dL Ur Leukocyte Esterase Negative (Negative) Urine RBC 3 (0-5) /hpf Urine WBC 73 H (0-5) /hpf Urine WBC Clumps Moderate H (None) /hpf Ur Squamous Epith Cells 1 (0-4) /hpf Urine Bacteria Few H (None) /hpf Urine Mucus Rare H (None) /hpf 03/11/20 Range/Units 10:54 WBC (3.8-10.6) k/uL RBC (4.30-5.90) m/uL Hgb (13.0-17.5) gm/dL Hct (39.0-53.0) % MCV (80.0-100.0) fL MCH (25.0-35.0) pg MCHC (31.0-37.0) g/dL RDW (11.5-15.5) % Plt Count (150-450) k/uL MPV Neutrophils % % Lymphocytes % % Monocytes % % Eosinophils % % Basophils % % Neutrophils # (1.3-7.7) k/uL Lymphocytes # (1.0-4.8) k/uL Monocytes # (0-1.0) k/uL Eosinophils # (0-0.7) k/uL Basophils # (0-0.2) k/uL Sodium (137-145) mmol/L Potassium (3.5-5.1) mmol/L Chloride (98-107) mmol/L Carbon Dioxide (22-30) mmol/L Anion Gap mmol/L BUN (9-20) mg/dL Creatinine (0.66-1.25) mg/dL Est GFR (CKD-EPI)AfAm (>60 ml/min/1.73 sqM) Est GFR (CKD-EPI)NonAf (>60 ml/min/1.73 sqM) Glucose (74-99) mg/dL Calcium (8.4-10.2) mg/dL Magnesium (1.6-2.3) mg/dL Total Bilirubin (0.2-1.3) mg/dL AST (17-59) U/L ALT (4-49) U/L Alkaline Phosphatase (38-126) U/L Troponin I 0.013 (0.000-0.034) ng/mL Total Protein (6.3-8.2) g/dL Albumin (3.5-5.0) g/dL Amylase (30-110) U/L Lipase (23-300) U/L Urine Color Urine Appearance (Clear) Urine pH (5.0-8.0) Ur Specific [place] (1.001-1.035) Urine Protein (Negative) Urine Glucose (UA) (Negative) Urine Ketones (Negative) Urine Blood (Negative) Urine Nitrite (Negative) Urine Bilirubin (Negative) Urine Urobilinogen (<2.0) mg/dL Ur Leukocyte Esterase (Negative) Urine RBC (0-5) /hpf Urine WBC (0-5) /hpf Urine WBC Clumps (None) /hpf Ur Squamous Epith Cells (0-4) /hpf Urine Bacteria (None) /hpf Urine Mucus (None) /hpf Disposition Clinical Impression: COVID-19, YASIR (acute kidney injury), Diarrhea, UTI (urinary tract infection) Disposition: ADMITTED IP TO THIS HOSP Is patient prescribed a controlled substance at d/c from ED?: No Referrals: [facility],Clinic [Primary Care Provider] - 1-2 days Time of Disposition: 12:26
[2020-03-11 11:21] LABS: Basophils % (A) 0 %; Eosinophils % (A) 1 %; HGB 15.3 gm/dL (13.0-17.5); Lymphocytes # (A) 0.2 k/uL (1.0-4.8); Lymphocytes % (A) 4 %; MCH 32.7 pg (25.0-35.0); MCHC 34.8 g/dL (31.0-37.0); MCV 93.8 fL (80.0-100.0); Mean Platelet Volume 7.5; Monocytes # (A) 0.2 k/uL (0-1.0); Monocytes % (A) 4 %; Neutrophils % (A) 91 %; RBC 4.69 m/uL (4.30-5.90); RDW 12.7 % (11.5-15.5); WBC 5.5 k/uL (3.8-10.6)
[2020-03-11 11:24] LABS: Platelet Count 184 k/uL (150-450)
[2020-03-11 11:26] LABS: Albumin 3.7 g/dL (3.5-5.0); Calcium 8.6 mg/dL (8.4-10.2); Magnesium 1.9 mg/dL (1.6-2.3); Potassium 3.6 mmol/L (3.5-5.1); Total Bilirubin 1.1 mg/dL (0.2-1.3); Total Protein 6.9 g/dL (6.3-8.2)
[2020-03-11 11:27] LABS: Appearance,Urine Cloudy (Clear); Bacteria,Urine Few /hpf; Bilirubin,Urine Negative (Negative); Blood,Urine Trace (Negative); Color,Urine Yellow; Glucose,Urine (UA) Trace (Negative); Ketones,Urine Negative (Negative); Leukocyte Esterase,Urine Negative (Negative); Mucus,Urine Rare /hpf; Nitrite,Urine Negative (Negative); PH, Urine 5.5 (5.0-8.0); Protein,Urine 1+ (Negative); RBC,Urine 3 /hpf (0-5); Specific Gravity,Urine 1.015 (1.001-1.035); Squamous Epithelial Cell,Urine 1 /hpf (0-4); Urobilinogen,Urine <2.0 mg/dL (<2.0); WBC,Urine 73 /hpf (0-5)
[2020-03-11] MEDS ORDERED: cefTRIAXone IN SWFI 1,000 MG/10 ML SYRINGE IVP STA (11:45)
[2020-03-11] MEDS ORDERED: NALOXONE 0.4 MG/ML 1 ML VIAL IV PRN (12:20)
--- NOTE | 2020-03-11 12:26 | XR ---
EXAMINATION TYPE: XR KUB DATE OF EXAM: 03/11/2020 COMPARISON: NONE HISTORY: Pain TECHNIQUE: Single supine KUB image of the abdomen is obtained FINDINGS: Small bowel demonstrates no evidence for dilatation or air fluid levels. Gas and fecal material is seen in non-distended colon. No convincing evidence for pneumoperitoneum. No unusual calcifications. The lung bases are clear. The osseous structures are intact. IMPRESSION: 1. Overall nonobstructive bowel gas pattern.
--- NOTE | 2020-03-11 12:26 | XR ---
EXAMINATION TYPE: XR chest 1V DATE OF EXAM: 03/11/2020 COMPARISON: Chest x-ray 03/05/2020 HISTORY: Covid pneumonia, cough and shortness of breath TECHNIQUE: Single frontal view of the chest is obtained. FINDINGS: Bilateral airspace disease is present. Apical pleural thickening is noted. There is no pne umothorax or pleural effusion. Overlying artifacts noted over the abdomen. There are overlying leads in the chest. Prominent lung volumes may be indicative of COPD. Heart size is normal. Aorta is dense. IMPRESSION: Findings consistent with bilateral pneumonia.
[2020-03-11] MEDS: SODIUM CHLORIDE 0.9% 1,000 ML IV SCH (13:37)
--- NOTE | 2020-03-11 14:14 | US ---
EXAMINATION TYPE: US kidneys/renal and bladder DATE OF EXAM: 03/11/2020 COMPARISON: CT 01/06/18 CLINICAL HISTORY: prakash. EXAM MEASUREMENTS: Right Kidney: 12.4 x 5.6 x 5.1 cm Left Kidney: 11.5 x 6.5 x 6.0 cm Post Void Residual Volume: Not measured mL Right Kidney: No hydronephrosis or masses seen Left Kidney: No hydronephrosis or masses seen Bladder: wnl Bilateral Jets seen: Yes There is no evidence for hydronephrosis at this point in time. No nephrolithiasis is seen. No jayme s are identified. Cortical medullary differentiation is maintained. The urinary bladder is anechoic. Bilateral ureteral jets are seen. IMPRESSION: No evident hydronephrosis.
--- NOTE | 2020-03-11 14:33 | P.HPIM ---
History of Present Illness Patient is a pleasant 70-year-old male came in with complaints of diarrhea. Patient was having several episodes of diarrhea patient had was having generalized body aches fatigue. Patient is found to have Covid 19 which was diagnosed the 10th of this month. Patient was having these symptoms for about a week. Patient did have nausea vomiting as well. Patient has not been eating or drinking since the symptoms and patient is found to be in acute renal failure. Patient was really doesn't have any fever. Patient denied any shortness of breath is having cough. Patient had a chest x-ray which showed bilateral pneumonia which is consistent with Covid 19. Patient denied any UTI-like symptoms but the because of mildly abnormal uterine patient was given a dose of Rocephin in ER. Review of Systems REVIEW OF SYSTEMS: CONSTITUTIONAL: As mentioned in HPI HEENT: No recent visual problems or hearing problems. Denied any sore throat. CARDIOVASCULAR: No chest pain, orthopnea, PND, no palpitations, no syncope. PULMONARY: No shortness of breath, no hemoptysis. GASTROINTESTINAL:, no abdominal pain. NEUROLOGICAL: No headaches, no weakness, no numbness. HEMATOLOGICAL: Denies any bleeding or petechiae. GENITOURINARY: Denies any burning micturition, frequency, or urgency. MUSCULOSKELETAL/RHEUMATOLOGICAL: Denies any joint pain, swelling, or any muscle pain. ENDOCRINE: Denies any polyuria or polydipsia. The rest of the 14-point review of systems is negative. Past Medical History Past Medical History: Coronary Artery Disease (CAD), CVA/TIA, Hyperlipidemia, Hypertension History of Any Multi-Drug Resistant Organisms: None Reported Past Surgical History: Appendectomy Additional Past Surgical History / Comment(s): carotid artery Past Psychological History: No Psychological Hx Reported Smoking Status: Former smoker Past Alcohol Use History: Occasional Past Drug Use History: None Reported Medications and Allergies Home Medications Medication Instructions Recorded Confirmed Type Aspirin 81 mg PO DAILY 01/28/18 03/11/20 History Clopidogrel [Plavix] 75 mg PO DAILY 01/28/18 03/11/20 History Finasteride [Proscar] 5 mg PO DAILY 01/28/18 03/11/20 History Simvastatin 40 mg PO DAILY 01/28/18 03/11/20 History Tamsulosin [Flomax] 0.4 mg PO DAILY 01/28/18 03/11/20 History lisinopriL [Zestril] 20 mg PO DAILY 01/28/18 03/11/20 History Albuterol Inhaler [Ventolin Hfa 1 puff INHALATION RT-QID PRN #1 03/05/20 1 05/11/19 Rx Inhaler] inhaler Bicalutamide 50 mg PO DAILY 03/11/20 03/11/20 History Mirabegron [Myrbetriq] 50 mg PO DAILY 03/11/20 03/11/20 History Allergies Allergy/AdvReac Type Severity Reaction Status Date / Time Penicillins Allergy Unknown Verified 03/11/20 12:43 Childhood Physical Exam Vitals: Vital Signs Temp Pulse Resp BP Pulse Ox 03/11/20 13:39 75 16 140/61 94 L 03/11/20 10:26 97.0 F L 70 18 126/82 96 Intake and Output 03/10/20 03/11/20 03/11/20 22:59 06:59 14:59 Other: Weight 92.986 kg PHYSICAL EXAMINATION: GENERAL: The patient is alert and oriented x3, not in any acute distress. Well developed, well nourished. HEENT: Pupils are round and equally reacting to light. EOMI. No scleral icterus. No conjunctival pallor. Normocephalic, atraumatic. No pharyngeal erythema. No thyromegaly. CARDIOVASCULAR: S1 and S2 present. No murmurs, rubs, or gallops. PULMONARY: Chest is clear to auscultation, no wheezing or crackles. ABDOMEN: Soft, nontender, nondistended, normoactive bowel sounds. No palpable organomegaly. MUSCULOSKELETAL: No joint swelling or deformity. EXTREMITIES: No cyanosis, clubbing, or pedal edema. NEUROLOGICAL: Gross neurological examination did not reveal any focal deficits. SKIN: No rashes. Results CBC & Chem 7: 03/11/20 10:54 03/11/20 10:54 Labs: Abnormal Lab Results - Last 24 Hours (Table) 03/11/20 03/11/20 03/11/20 Range/Units 10:54 10:54 10:54 Lymphocytes # 0.2 L (1.0-4.8) k/uL Carbon Dioxide 20 L (22-30) mmol/L BUN 32 H (9-20) mg/dL Creatinine 2.33 H (0.66-1.25) mg/dL Glucose 127 H (74-99) mg/dL AST 66 H (17-59) U/L Urine Protein 1+ H (Negative) Urine Glucose (UA) Trace H (Negative) Urine Blood Trace H (Negative) Urine WBC 73 H (0-5) /hpf Urine WBC Clumps Moderate H (None) /hpf Urine Bacteria Few H (None) /hpf Urine Mucus Rare H (None) /hpf Assessment and Plan Plan: -Sepsis: Secondary to Covid 19. Patient is started on Decadron infectious disease will be consulted. Lovenox for DVT prophylaxis -Pneumonitis/pneumonia secondary to covid 19 -Acute renal failure mostly prerenal azotemia from nausea vomiting, diarrhea: Patient will be continued on IV fluids and recheck the basic metabolic profile tomorrow ultrasound of the kidney did not show any chronic kidney disease or hydronephrosis. We'll also obtain urine random sodium in urine random creatinine. Nephrology was consulted. -CAD -Severe TIA in the past -Hyperlipidemia -Hypertension
[2020-03-11] MEDS ORDERED: AZITHROMYCIN 500 MG in SODIUM CHLORIDE 0.9% 250 ML IVPB STA (22:25)
[2020-03-11] MEDS: dexAMETHasone 2 MG TAB PO SCH (22:55)
[2020-03-11] MEDS: ENOXAPARIN 40 MG/0.4 ML SYRINGE SQ SCH (22:55)
[2020-03-11] MEDS: ZINC SULFATE 220 MG CAP PO SCH (22:55)
--- NOTE | 2020-03-12 00:36 | CONS ---
CONSULTATION DATE OF SERVICE: 03/11/2020 REASON FOR CONSULTATION: COVID. HISTORY OF PRESENT ILLNESS: The patient is a 79-year-old male with multiple comorbidities who apparently was diagnosed with COVID-19 on March 04, 2020 presenting to the hospital with chief complaints of diarrhea. The patient did have diarrhea that had been going on for about a week with multiple loose stools. No blood or mucus in the stools. Denies any abdominal pain. No nausea, no vomiting. The patient denies having any chest pain. No shortness of breath or cough. Has been complaining of fever off and on since he was diagnosed with COVID-19 about a week ago. With these symptoms, the patient was evaluated by the ER physician. On arrival to the ER, the patient was afebrile. The patient has been saturating 96% on room air. The patient did have a normal white count with lymphopenia. He did have a creatinine of 2.33. AST is 66. Amylase and lipase have been normal. Urine was positive. However, the patient did not have any urinary symptoms. No other inflammatory markers were done. The patient did have a chest x-ray finding consistent with bilateral pneumonia. The patient has been admitted to the hospital. Infectious Disease was consulted for further management of underlying COVID- 19. REVIEW OF SYSTEMS: Positive points have been mentioned in HPI. Rest of systems are negative. PAST MEDICAL HISTORY: Coronary artery disease, CVA, TIA, hypertension, hyperlipidemia. PAST SURGICAL HISTORY: Appendectomy. SOCIAL HISTORY: Remote history of smoking. Occasionally drinks. No drug use. FAMILY HISTORY: No pertinent findings noticed. ALLERGIES: PENICILLIN with a rash. However, tolerated Rocephin without any problem. MEDICATIONS: Medications include the patient is currently on aspirin, Casodex, Lipitor, albuterol inhaler, Proscar, Narcan, Flomax. PHYSICAL EXAMINATION: Blood pressure is 154/78 with a pulse of 77, temperature 98.6. He is 95% on room air. General description is an elderly male lying in bed in no distress. No tachypnea or accessory muscle of respiration use. HEENT: Examination shows no pallor or scleral icterus. Oral mucous membranes dry. NECK: Trachea central. No thyromegaly. LUNGS: Unlabored breathing, decreased intensity of breath sounds. No wheeze. HEART: S1, S2. Regular rate and rhythm. ABDOMEN: Soft. No tenderness. No guarding or rigidity. EXTREMITIES: No edema of feet. SKIN EXAMINATION: No rash or mass palpable. NEUROLOGIC: The patient is awake, alert, oriented x3. Mood and affect normal. LABS: Hemoglobin 15.3, white count 5.5 with lymphopenia. BUN of 32, creatinine is 2.33. Electrolytes normal. AST elevated. Amylase, lipase were normal. UA positive. Chest x- ray with bilateral pneumonia. DIAGNOSTIC IMPRESSION: Patient admitted to the hospital predominantly with diarrhea, weakness and some mental status changes in this patient has been recently diagnosed with COVID-19 pneumonia now presented to the hospital with predominantly gastrointestinal symptoms with evidence of bilateral pneumonia on the chest x-ray and renal insufficiency. PLAN: 1. We will start the patient on dexamethasone, Lovenox, Zithromax and zinc sulfate. 2. IV fluids. 3. Repeat chest x-ray and inflammatory markers tomorrow. 4. We will follow on his clinical condition and investigation to further adjust medication if needed. Thank you for this consultation. Will follow this patient along with you. MMJONATHANL / IJN: [id number] /
[2020-03-12] MEDS: SODIUM CHLORIDE 0.9% 1,000 ML IV SCH ×3 (04:26→21:05)
[2020-03-12 07:17] LABS: HCT 37.2 % (39.0-53.0); HGB 13.1 gm/dL (13.0-17.5); MCH 33.6 pg (25.0-35.0); MCHC 35.3 g/dL (31.0-37.0); MCV 95.2 fL (80.0-100.0); Mean Platelet Volume 7.6; Platelet Count 153 k/uL (150-450); RBC 3.91 m/uL (4.30-5.90); RDW 12.2 % (11.5-15.5); WBC 4.7 k/uL (3.8-10.6)
[2020-03-12] MEDS: CLOPIDOGREL 75 MG TAB PO SCH (09:24)
[2020-03-12] MEDS: lisinopriL 20 MG TAB PO SCH (09:24)
[2020-03-12] MEDS: TAMSULOSIN 0.4 MG CAP.ER.24H PO SCH (09:24)
[2020-03-12] MEDS: ASPIRIN 81 MG PO SCH (09:25)
[2020-03-12] MEDS: FINASTERIDE 5 MG TAB PO SCH (09:25)
[2020-03-12] MEDS: dexAMETHasone 2 MG TAB PO SCH (09:25)
[2020-03-12] MEDS: ZINC SULFATE 220 MG CAP PO SCH (09:25)
[2020-03-12] MEDS: ATORVASTATIN 20 MG TAB PO SCH (09:25)
[2020-03-12] MEDS: ENOXAPARIN 40 MG/0.4 ML SYRINGE SQ SCH (09:25)
[2020-03-12] MEDS: NON FORMULARY DRUG (Mirabegron [Myrbetriq] 50 MG Tab.Er.24h) PO SCH (09:26)
[2020-03-12] MEDS: AZITHROMYCIN 500 MG TAB PO SCH (09:26)
[2020-03-12] MEDS: BICALUTAMIDE 50 MG TAB PO SCH (09:26)
[2020-03-12 10:03] LABS: African American GFR (CKD) 60.1 (60.0-200.0); Anion Gap 11.7 mmol/L (4.00-12.00); BUN/Creat Ratio 20.77 Ratio (12.00-20.00); Carbon Dioxide 17.3 mmol/L (21.6-31.8); Non-African American GFR(CKD) 51.9 (60.0-200.0); Potassium 3.4 mmol/L (3.5-5.5)
[2020-03-12] MEDS ORDERED: Potassium Replacement Protocol 1 EACH MISC MISCELLANE PRN (11:27)
[2020-03-12] MEDS: POTASSIUM CHLORIDE ER 20 MEQ TAB.ER PO SCH ×2 (12:13→12:49)
[2020-03-12] MEDS: CHOLESTYRAMINE (WITH SUGAR) 4 GM PACKET PO SCH ×2 (12:13→17:14)
--- NOTE | 2020-03-12 13:23 | P.NPCON ---
History of Present Illness - Reason for Consult acute renal failure - History of Present Illness Reason for consultation: Acute kidney injury History of present illness: Patient is a 79-year-old male seen in renal consultation for acute kidney injury. Patient presented to the hospital with diarrhea which is going on for about one week prior to admission. Patient did test positive for Covid 19 on 03/05/2020. Creatinine was 2.33 on admission and is down to 1.3 today. Baseline creatinine is near 1. He admits to good urine output. Denies any hematuria or dysuria. No edema. Denies use of nonsteroidals. No history of diabetes. Denies family history of renal disease. Diarrhea has improved. No evidence of hypotension. Blood pressures actually on the higher side. Lisinopril has been resumed. He is currently maintained on normal saline at 100 mL an hour. Denies cough. Denies fever or chills. Denies melena or hematochezia. No syncopal episodes. Oral intake has been poor. No vomiting. Vital signs are stable. General: The patient appeared well nourished and normally developed. HEENT: Head exam is unremarkable. Neck is without jugular venous distension. LUNGS: Breath sounds decreased. HEART: Rate and Rhythm are regular. ABDOMEN: Soft, nontender. EXTREMITITES: No edema. Past Medical History Past Medical History: Coronary Artery Disease (CAD), CVA/TIA, Hyperlipidemia, Hypertension History of Any Multi-Drug Resistant Organisms: None Reported Past Surgical History: Appendectomy Additional Past Surgical History / Comment(s): carotid artery Past Anesthesia/Blood Transfusion Reactions: No Reported Reaction Past Psychological History: No Psychological Hx Reported Smoking Status: Former smoker Past Alcohol Use History: Occasional Past Drug Use History: None Reported Medications and Allergies Home Medications Medication Instructions Recorded Confirmed Type Aspirin 81 mg PO DAILY 01/28/18 03/11/20 History Clopidogrel [Plavix] 75 mg PO DAILY 01/28/18 03/11/20 History Finasteride [Proscar] 5 mg PO DAILY 01/28/18 03/11/20 History Simvastatin 40 mg PO DAILY 01/28/18 03/11/20 History Tamsulosin [Flomax] 0.4 mg PO DAILY 01/28/18 03/11/20 History lisinopriL [Zestril] 20 mg PO DAILY 01/28/18 03/11/20 History Albuterol Inhaler [Ventolin Hfa 1 puff INHALATION RT-QID PRN #1 03/05/20 03/11/20 Rx Inhaler] inhaler Bicalutamide 50 mg PO DAILY 03/11/20 03/11/20 History Mirabegron [Myrbetriq] 50 mg PO DAILY 03/11/20 03/11/20 History Allergies Allergy/AdvReac Type Severity Reaction Status Date / Time Penicillins Allergy Unknown Verified 03/11/20 12:43 Childhood Physical Exam Vitals: Vital Signs Temp Pulse Pulse Resp BP BP Pulse Ox 03/12/20 07:00 97.8 F 71 19 164/72 93 L 03/12/20 04:10 98.2 F 76 18 175/70 92 L 03/11/20 19:13 98.1 F 85 19 180/74 91 L 03/11/20 17:43 98.7 F 73 14 171/71 95 03/11/20 16:32 98.6 F 77 16 154/78 95 03/11/20 13:39 75 16 140/61 94 L Intake and Output 03/11/20 03/12/20 03/12/20 22:59 06:59 14:59 Other: Voiding Method Incontinent # Voids 1 # Bowel Movements 1 Results - Lab Results Most recent lab results Calcium 8.0 mg/dL (8.7-10.3) L 03/12/20 05:55 Magnesium 1.9 mg/dL (1.6-2.3) 03/11/20 10:54 03/12/20 05:55 03/12/20 05:55 Assessment and Plan Plan: Assessment: 1. Acute kidney injury mostly prerenal secondary to hypovolemia improving with IV hydration. Creatinine was 2.3 on admission and is down to 1.3 today. 2. Diarrhea likely related to COVID 19 infection. 3. COVID 19 infection maintained on steroids and zinc. 4. Hypokalemia from poor intake. Magnesium level was normal yesterday. 5. Metabolic acidosis secondary to acute kidney injury, GI losses and IV fluids. Plan: Maintain IV fluids. Potassium was replaced. Add oral bicarb. Okay to maintain ONIEL inhibitor as renal function improving and blood pressure elevated. I will also add hydralazine PRN systolic blood pressure greater than 160 Repeat electrolytes in the morning. Thank you for the consultation. I will continue to follow the patient with you during his hospital stay.
[2020-03-12] MEDS: SODIUM BICARBONATE TAB 650 MG TAB PO SCH ×2 (14:45→21:05)
--- NOTE | 2020-03-12 14:59 | P.PN ---
Subjective Progress Note Date: 03/12/20 Patient is a pleasant 70-year-old male came in with complaints of diarrhea. Patient was having several episodes of diarrhea patient had was having generalized body aches fatigue. Patient is found to have Covid 19 which was diagnosed the of this month. Patient was having these symptoms for about a week. Patient did have nausea vomiting as well. Patient has not been eating or drinking since the symptoms and patient is found to be in acute renal failure. Patient was really doesn't have any fever. Patient denied any shortness of breath is having cough. Patient had a chest x-ray which showed bilateral pneumonia which is consistent with Covid 19. Patient denied any UTI-like symptoms but the because of mildly abnormal urine patient was given a dose of Rocephin in ER. 03/12/2020 Patient is seen and evaluated in follow-up today and continues to have multiple episodes of diarrhea and has been incontinent of stool. Patient continues to have some generalized body aches along with decreased appetite and general malaise. Patient is Covid 19 positive and currently being followed by [facility]. Nephrology following as well for acute renal failure although has improved at this time. Patient is currently maintained on oral Zithromax along with dexamethasone and subcutaneous Lovenox zinc supplements. Nephrology was consulted and following for acute renal failure and sodium bicarbonate tablets have been added. Current sodium is 141 with a BUN of 27 and creatinine of 1.3. Review of systems: Constitutional: Reports fatigue, with no reports of fever, or chills Cardiovascular: No reports of chest pain or palpitations Respiratory: Reports mild shortness of breath GI: No reports of nausea, vomiting. Reports multiple episodes of diarrhea : No reports of dysuria or retention Neurovascular: Reports weakness All medications have been reviewed Objective - Vital Signs Vital signs: Vital Signs Temp 97.8 F 03/12/20 07:00 Pulse 71 03/12/20 07:00 Resp 19 03/12/20 07:00 BP 164/72 03/12/20 07:00 Pulse Ox 93 L 03/12/20 07:00 Intake & Output 03/11/20 03/12/20 03/12/20 18:59 06:59 18:59 Weight 92.986 kg Other: Voiding Method Incontinent # Voids 1 # Bowel Movements 1 - Exam GENERAL: The patient is alert and oriented x3, not in any acute distress. Well developed, well nourished. HEENT: Pupils are round and equally reacting to light. EOMI. No scleral icterus. No conjunctival pallor. Normocephalic, atraumatic. No pharyngeal erythema. No thyromegaly. CARDIOVASCULAR: S1 and S2 present. No murmurs, rubs, or gallops. PULMONARY: Chest is clear to auscultation, no wheezing or crackles. ABDOMEN: Soft, nontender, nondistended, normoactive bowel sounds. No palpable organomegaly. MUSCULOSKELETAL: No joint swelling or deformity. EXTREMITIES: No cyanosis, clubbing, or pedal edema. NEUROLOGICAL: Gross neurological examination did not reveal any focal deficits. SKIN: No rashes. - Labs CBC & Chem 7: 03/12/20 05:55 03/12/20 05:55 Labs: Abnormal Lab Results - Last 24 Hours (Table) 03/12/20 03/12/20 Range/Units 05:55 05:55 RBC 3.91 L (4.30-5.90) m/uL Hct 37.2 L (39.0-53.0) % Potassium 3.4 L (3.5-5.5) mmol/L Chloride 112 H (96-109) mmol/L Carbon Dioxide 17.3 L (21.6-31.8) mmol/L Est GFR (CKD-EPI)NonAf 51.9 L (60.0-200.0) BUN/Creatinine Ratio 20.77 H (12.00-20.00) Ratio Glucose 125 H (70-110) mg/dL Calcium 8.0 L (8.7-10.3) mg/dL Microbiology - Last 24 Hours (Table) 03/11/20 10:54 Urine Culture - Final Urine,Voided Assessment and Plan Assessment: -Sepsis: Secondary to Covid 19. Patient is maintained on Decadron along with Lovenox. Infectious disease following. -Pneumonitis/pneumonia secondary to covid 19 -Diarrhea most likely secondary to Covid 19 -Acute renal failure mostly prerenal azotemia from nausea vomiting, diarrhea: Improving. Patient is maintained on normal saline and sodium bicarb tablets have been added. Nephrology following. Current creatinine is 1.3. Will repeat a.m. labs -CAD -Severe TIA in the past with some right-sided deficit -Gait dysfunction -Hyperlipidemia -Hypertension, lisinopril resumed his kidney functions have improved and blood pressure has been elevated. We'll continue to monitor closely. -GI prophylaxis -DVT prophylaxis Plan: Continue with current medications and will continue to monitor vital signs and labs closely. Questran was added as patient continues to have multiple episodes of diarrhea. Nephrology and infectious disease are following. Lisinopril was resumed as patient continues to have elevated blood pressure and kidney function showed improvement. Case management following and working on discharge planning needs with the patient. A prescription was provided for a wheelchair as patient will need to assist with performing ADLs as he is unable to perform these with a walker. Patient does have a history of a TIA in the past with some right-sided deficits. Patient also does have a caregiver that is available to assist with the wheelchair. Will repeat a.m. labs. Further recommendations to follow.
[2020-03-12] MEDS: hydrALAZINE HCL 20 MG/ML 1 ML VIAL IVP PRN (21:05)
--- NOTE | 2020-03-12 22:46 | PN ---
PROGRESS NOTE DATE OF SERVICE: 03/12/2020 REASON FOR FOLLOWUP: Acute COVID-19 pneumonia. INTERVAL HISTORY: Patient is currently afebrile, has been feeling slightly better today, breathing comfortably, still requiring supplemental oxygen. The patient denies having any chest pain. Minimal cough. No abdominal pain. No diarrhea. PHYSICAL EXAMINATION: Blood pressure 196/72, pulse 78, temperature 98.1. He is 90% on 2 L nasal cannula. General description is an elderly male lying in bed in no distress. Respiratory system: Unlabored breathing, decreased breath sounds in the bases. No wheeze. HEART: S1, S2. Regular rate and rhythm. ABDOMEN: Soft. No tenderness. LABS: Creatinine is down to 1.3. DIAGNOSTIC IMPRESSION/PLAN: Patient with predominantly diarrhea in this patient diagnosed with Covid-19 on March 04. The patient did have improvement in his kidney function. However, still hypoxic. We will repeat his chest x-ray inflammatory markers tomorrow. Continue with Zithromax, dexamethasone, Lovenox and monitor his clinical course closely. Continue supportive care. MMODL / IJN: [id number] /
[2020-03-13 07:01] LABS: Basophils % (A) 0 %; Eosinophils % (A) 0 %; HCT 39.1 % (39.0-53.0); HGB 13.8 gm/dL (13.0-17.5); Lymphocytes # (A) 0.4 k/uL (1.0-4.8); Lymphocytes % (A) 5 %; MCH 33.3 pg (25.0-35.0); MCHC 35.3 g/dL (31.0-37.0); MCV 94.2 fL (80.0-100.0); Mean Platelet Volume 7.5; Monocytes # (A) 0.4 k/uL (0-1.0); Monocytes % (A) 5 %; Neutrophils # (A) 7.5 k/uL (1.3-7.7); Neutrophils % (A) 88 %; Platelet Count 201 k/uL (150-450); RBC 4.15 m/uL (4.30-5.90); WBC 8.5 k/uL (3.8-10.6)
--- NOTE | 2020-03-13 07:43 | XR ---
EXAMINATION TYPE: XR chest 1V portable DATE OF EXAM: 03/13/2020 COMPARISON: Prior chest x-ray 03/11/2020 HISTORY: Pneumonia, cough and shortness of breath TECHNIQUE: Single frontal view of the chest is obtained. FINDINGS: Bilateral airspace disease is thought to have progressed although there are differences in inspiration. No evident pneumothorax or pleural effusion. Heart size is stable. Aorta is dense. IMPRESSION: Findings suggest progression of pneumonia.
[2020-03-13] MEDS: SODIUM CHLORIDE 0.9% 1,000 ML IV SCH (07:57)
[2020-03-13] MEDS: TAMSULOSIN 0.4 MG CAP.ER.24H PO SCH (08:02)
[2020-03-13] MEDS: ENOXAPARIN 40 MG/0.4 ML SYRINGE SQ SCH (08:02)
[2020-03-13] MEDS: ASPIRIN 81 MG PO SCH (08:02)
[2020-03-13] MEDS: FINASTERIDE 5 MG TAB PO SCH (08:02)
[2020-03-13] MEDS: SODIUM BICARBONATE TAB 650 MG TAB PO SCH ×2 (08:02→20:12)
[2020-03-13] MEDS: AZITHROMYCIN 500 MG TAB PO SCH (08:03)
[2020-03-13] MEDS: CHOLESTYRAMINE (WITH SUGAR) 4 GM PACKET PO SCH ×3 (08:03→17:28)
[2020-03-13] MEDS: ATORVASTATIN 20 MG TAB PO SCH (08:03)
[2020-03-13] MEDS: BICALUTAMIDE 50 MG TAB PO SCH (08:03)
[2020-03-13] MEDS: dexAMETHasone 2 MG TAB PO SCH (08:03)
[2020-03-13] MEDS: ZINC SULFATE 220 MG CAP PO SCH (08:03)
[2020-03-13] MEDS: CLOPIDOGREL 75 MG TAB PO SCH (08:03)
[2020-03-13] MEDS: lisinopriL 20 MG TAB PO SCH (08:03)
[2020-03-13] MEDS: NON FORMULARY DRUG (Mirabegron [Myrbetriq] 50 MG Tab.Er.24h) PO SCH (08:04)
[2020-03-13] MEDS: ALBUTEROL HFA INHALER INHALATION PRN ×2 (08:43→17:33)
[2020-03-13] MEDS: hydrALAZINE HCL 25 MG TAB PO SCH ×3 (08:50→20:12)
--- NOTE | 2020-03-13 08:56 | P.PN ---
Subjective Patient is seen in follow for acute kidney injury. Creatinine 1.3 as of yesterday. Only had one episode of loose bowel movement last night. Oral intake is good. No chest pain or shortness of breath. Good urine output. Blood pressure high this morning. Vital signs are stable. General: The patient appeared well nourished and normally developed. HEENT: Head exam is unremarkable. Neck is without jugular venous distension. LUNGS: Breath sounds decreased. HEART: Rate and Rhythm are regular. ABDOMEN: Soft, nontender. EXTREMITITES: No edema. Objective - Vital Signs Vital signs: Vital Signs Temp 97.7 F 03/13/20 07:00 Pulse 82 03/13/20 07:00 Resp 22 03/13/20 08:26 BP 191/79 03/13/20 07:00 Pulse Ox 90 L 03/13/20 08:26 Intake & Output 03/12/20 03/13/20 03/13/20 18:59 06:59 18:59 Intake Total 700 Output Total 3 950 Balance -3 -250 Intake: Intake, IV Titration 400 Amount Sodium Chloride 0.9% 1, 400 000 ml @ 100 mls/hr IV . Q10H [facility] Rx#:[id number] Oral 300 Output: Urine 950 Stool 3 Other: Voiding Method Incontinent Incontinent # Voids 2 # Bowel Movements 3 1 - Labs CBC & Chem 7: 03/13/20 06:15 03/12/20 05:55 Labs: Abnormal Lab Results - Last 24 Hours (Table) 03/12/20 03/13/20 Range/Units 05:55 06:15 RBC 4.15 L (4.30-5.90) m/uL Lymphocytes # 0.4 L (1.0-4.8) k/uL Potassium 3.4 L (3.5-5.5) mmol/L Chloride 112 H (96-109) mmol/L Carbon Dioxide 17.3 L (21.6-31.8) mmol/L Est GFR (CKD-EPI)NonAf 51.9 L (60.0-200.0) BUN/Creatinine Ratio 20.77 H (12.00-20.00) Ratio Glucose 125 H (70-110) mg/dL Calcium 8.0 L (8.7-10.3) mg/dL Microbiology - Last 24 Hours (Table) 03/11/20 13:39 Blood Culture - Preliminary Blood No Growth after 24 hours 03/11/20 10:54 Urine Culture - Final Urine,Voided Assessment and Plan Plan: Assessment: 1. Acute kidney injury mostly prerenal secondary to hypovolemia improving with IV hydration. Creatinine was 2.3 on admission and down to 1.3 as of yesterday. 2. Diarrhea likely related to COVID 19 infection. 3. COVID 19 infection maintained on steroids and zinc. 4. Hypokalemia from poor intake. Status post placement. 5. Metabolic acidosis secondary to acute kidney injury, GI losses and IV fluids. Maintained on oral bicarbonate. 6. Benign hypertension. Blood pressure high this morning - partially due to steroids. Plan: Hep-Lock IV fluids. Add hydralazine 25 mg 3 times daily. To be held for systolic blood pressure less than 125. Okay to maintain ONIEL inhibitor as renal function improving and blood pressure elevated. Morning labs pending.
[2020-03-13 09:27] LABS: African American GFR (CKD) 93.8 (60.0-200.0); Albumin 3.1 g/dL (3.80-4.90); Albumin/Globulin Ratio 1.48 (1.60-3.17); Anion Gap 8.5 mmol/L (4.00-12.00); C Reactive Protein 6.7 mg/dL (0.0-0.8); Calcium 8.3 mg/dL (8.7-10.3); Carbon Dioxide 19.5 mmol/L (21.6-31.8); Globulin 2.1 g/dL (1.6-3.3); Magnesium 1.8 mg/dL (1.5-2.4); Non-African American GFR(CKD) 80.9 (60.0-200.0); Total Bilirubin 0.5 mg/dL (0.3-1.2); Total Protein 5.2 g/dL (6.2-8.2)
--- NOTE | 2020-03-13 09:38 | CDI ---
Documentation Clarification Form Date: 03/13/2020 08:47:00 AM From: Cathleen Jacome RN, CCDS Admit Date: 03/11/2020 12:14:00 PM Patient Name: Walt Neely Visit Number: [id number] Discharge Date: ATTENTION: The Clinical Documentation Specialists (CDI) and [facility] Coding Staff appreciate your assistance in clarifying documentation. Please respond to the clarification below the line at the bottom and electronically sign. The CDI & [facility] Coding staff will review the response and follow-up if needed. Please note: Queries are made part of the Legal Health Record. If you have any questions, please contact the author of this message via ITS. Dr. Marguerite Bajwa Your patient has a documented diagnosis of Sepsis which may lack sufficient clinical evidence/support. 03/11-03/12 progress notes: Patient not been eating or drinking, found to be in acute renal failure. Patient really doesn't have any fever. Patient denied any shortness of breath is having cough. Patient chest x-ray showed bilateral pneumonia which is consistent with Covid 19. Patient denies any UTI-like symptoms. History/Risk Factors: COVID-19, CVA, CAD, Hypertension Clinical Indicators: 70-year-old male present on 03/11 with complaints of nausea, vomiting, diarrhea. ED documents he is Covid positive as of 03/05/20. He reports vomiting x1 day, feels dehydrated and weak. He complains of fever on and off. Reports fatigue, mild shortness of breath, multiple episodes of diarrhea. 03/11 Vital signs on admission: 126/82 70 18 97.0 96 % RA 03/11 EKG: Normal sinus rhythm, ventricular rate 71 03/11 Labs: WBC 5.5, Lymphocytes 0.2; BUN 32, CR 2.33 03/12 Chloride 112, Carbon dioxide 17.3 03/11 Urine culture: No growth 03/11 Blood culture: Pending (no growth after 24 hrs) 03/01 ID (Dr. Ritter): Admitted to hospital predominantly with diarrhea, weakness and some mental status changes in this patient has been recently diagnosed with COVID-19 pneumonia now presented to the hospital with predominantly gastrointestinal symptoms with evidence of bilateral pneumonia on the chest x- ray and renal insufficiency. Treatment: Rocephin 1,000 mg IVP once stat 03/11 Zithromax 500 mg IVPB once stat 03/11 Zithromax 500 mg po daily start 03/12 Questran 4 mg po tid Dexamethasone 6 mg po daily Sodium Bicarbonate Tab 650 mg op bid Based on the clinical evidence and your professional judgment, do you feel Sepsis is a valid diagnosis? Yes, Sepsis, present/active during this admission as evidence by (additional clinical support): No, Sepsis was ruled out. Other (please specify diagnosis) Unable to determine (Last Revision: April 2019) My impression is per my documentation. MTDD
[2020-03-13] MEDS ORDERED: REMDESIVIR (EUA) 200 MG in SODIUM CHLORIDE 0.9% 250 ML IVPB ONE (13:00)
--- NOTE | 2020-03-13 15:49 | P.PN ---
Subjective Progress Note Date: 03/13/20 Patient is a pleasant 70-year-old male came in with complaints of diarrhea. Patient was having several episodes of diarrhea patient had was having generalized body aches fatigue. Patient is found to have Covid 19 which was diagnosed the of this month. Patient was having these symptoms for about a week. Patient did have nausea vomiting as well. Patient has not been eating or drinking since the symptoms and patient is found to be in acute renal failure. Patient was really doesn't have any fever. Patient denied any shortness of breath is having cough. Patient had a chest x-ray which showed bilateral pneumonia which is consistent with Covid 19. Patient denied any UTI-like symptoms but the because of mildly abnormal urine patient was given a dose of Rocephin in ER. 03/12/2020 Patient is seen and evaluated in follow-up today and continues to have multiple episodes of diarrhea and has been incontinent of stool. Patient continues to have some generalized body aches along with decreased appetite and general malaise. Patient is Covid 19 positive and currently being followed by [facility] disease. Nephrology following as well for acute renal failure although has improved at this time. Patient is currently maintained on oral Zithromax along with dexamethasone and subcutaneous Lovenox zinc supplements. Nephrology was consulted and following for acute renal failure and sodium bicarbonate tablets have been added. Current sodium is 141 with a BUN of 27 and creatinine of 1.3. Review of systems: Constitutional: Reports fatigue, with no reports of fever, or chills Cardiovascular: No reports of chest pain or palpitations Respiratory: Reports mild shortness of breath GI: No reports of nausea, vomiting. Reports multiple episodes of diarrhea : No reports of dysuria or retention Neurovascular: Reports weakness All medications have been reviewed 03/13/2020 Patient is seen in follow-up today and respiratory status has worsened and is currently maintained on 4-5 L via nasal cannula with 92% saturation. Patient's blood pressure is also continue to be elevated and lisinopril was resumed. IV fluids discontinued per nephrology. Creatinine continues to improve and is currently 0.9. Sodium is 142, and repeat potassium is 4.0. Patient only had one episode of diarrhea last night and is maintained on Questran at this time. Patient also continues to have poor appetite. Infectious disease is following and patient completed a course of Zithromax and is currently maintained on dexamethasone, Lovenox, zinc supplements, and Remdesivir was initiated today. Will repeat labs and continue to monitor closely. Droplet isolation precautions maintained. Currently patient denies any chest pain or palpitations. Patient is afebrile. No reports of nausea or vomiting and patient is tolerating diet. Objective - Vital Signs Vital signs: Vital Signs Temp 97.7 F 03/13/20 07:00 Pulse 82 03/13/20 07:00 Resp 18 03/13/20 11:56 BP 167/82 03/13/20 11:56 Pulse Ox 92 L 03/13/20 11:56 Intake & Output 03/12/20 03/13/20 03/13/20 18:59 06:59 18:59 Intake Total 700 Output Total 3 950 Balance -3 -250 Intake: Intake, IV Titration 400 Amount Sodium Chloride 0.9% 1, 400 000 ml @ 100 mls/hr IV . Q10H CHEY Rx#:[id number] Oral 300 Output: Urine 950 Stool 3 Other: Voiding Method Incontinent Incontinent Incontinent # Voids 2 # Bowel Movements 3 1 - Exam GENERAL: The patient is alert and oriented x3, not in any acute distress. Well developed, well nourished. HEENT: Pupils are round and equally reacting to light. EOMI. No scleral icterus. No conjunctival pallor. Normocephalic, atraumatic. No pharyngeal erythema. No thyromegaly. CARDIOVASCULAR: S1 and S2 present. No murmurs, rubs, or gallops. PULMONARY: Breath sounds diminished bilaterally with no wheezing or rhonchi noted ABDOMEN: Soft, nontender, nondistended, normoactive bowel sounds. No palpable organomegaly. MUSCULOSKELETAL: No joint swelling or deformity. EXTREMITIES: No cyanosis, clubbing, or pedal edema. NEUROLOGICAL: Gross neurological examination did not reveal any focal deficits. Diffusely weak SKIN: No rashes. - Labs CBC & Chem 7: 03/13/20 06:15 03/13/20 06:15 Labs: Abnormal Lab Results - Last 24 Hours (Table) 03/13/20 03/13/20 Range/Units 06:15 06:15 RBC 4.15 L (4.30-5.90) m/uL Lymphocytes # 0.4 L (1.0-4.8) k/uL Chloride 114 H (96-109) mmol/L Carbon Dioxide 19.5 L (21.6-31.8) mmol/L BUN/Creatinine Ratio 30.00 H (12.00-20.00) Ratio Glucose 123 H (70-110) mg/dL Calcium 8.3 L (8.7-10.3) mg/dL AST 52 H (14-35) U/L Lactate Dehydrogenase 401 H (120-246) U/L C-Reactive Protein 6.7 H (0.0-0.8) mg/dL Total Protein 5.2 L (6.2-8.2) g/dL Albumin 3.10 L (3.80-4.90) g/dL Albumin/Globulin Ratio 1.48 L (1.60-3.17) g/dL Microbiology - Last 24 Hours (Table) 03/11/20 13:39 Blood Culture - Preliminary Blood No Growth after 24 hours 03/11/20 10:54 Urine Culture - Final Urine,Voided Assessment and Plan Assessment: -Sepsis: Secondary to Covid 19 pneumonia. Present on admission Patient is maintained on Decadron along with Lovenox. Remdesivir initiated. Infectious disease following. -Pneumonitis/pneumonia secondary to covid 19 -Diarrhea most likely secondary to Covid 19, improving -Acute renal failure mostly prerenal azotemia from nausea vomiting, diarrhea: Improving. Patient is maintained on sodium bicarb tablets have been added. Nephrology following. Current creatinine is 0.9. Will repeat a.m. labs -CAD -Severe TIA in the past with some right-sided deficit -Gait dysfunction -Hyperlipidemia -Hypertension, home medications resumed, by mouth hydralazine added per nephrology -GI prophylaxis -DVT prophylaxis Plan: Continue with current medications and will continue to monitor vital signs and labs closely. Ayana helping with the diarrhea with only one episode last night reported. Nephrology and infectious disease are following. Lisinopril was resumed as patient continues to have elevated blood pressure and kidney function showed improvement. Hydralazine by mouth added for better blood pressure control. Patient is currently maintained on 4-5 L of oxygen via nasal cannula as respiratory status is not improved. Repeat chest x-ray today shows bilateral airspace disease thought to have progressed with no evident pneumothorax or pleural effusion and findings suggest progression of pneumonia. Remdesivir initiated. Will repeat a.m. labs. Further recommendations to follow.
--- NOTE | 2020-03-13 22:59 | PN ---
PROGRESS NOTE DATE OF SERVICE: 03/13/2020 REASON FOR FOLLOWUP: COVID-19 infection. INTERVAL HISTORY: Patient is currently afebrile. The patient not responding requiring high-flow oxygen at 5 L. The patient complaining of shortness of breath. Also has a cough. No chest pain. No vomiting and no further diarrhea. PHYSICAL EXAMINATION: Blood pressure is 170/97, pulse of 92, temperature is 97.6. He is 91% on 5 L nasal cannula. General description is an elderly male lying in bed in no distress. Respiratory system: Unlabored breathing, decreased intensity of breath sounds. No wheeze. HEART: S1, S2. Regular rate and rhythm. ABDOMEN: Soft, no tenderness. LABS: Hemoglobin is 13.8, white count 8.5, BUN of 27, creatinine 0.9. DIAGNOSTIC IMPRESSION AND PLAN: Patient with acute COVID-19 infection predominant gastrointestinal symptoms, now with worsening of his respiratory status and requiring high-flow oxygen. The case was discussed in detail with the pharmacist this morning. The patient will be started on Remdesivir to continue along with zinc, Lovenox and dexamethasone. Will monitor clinical course closely. MMODL / IJN: [id number] /
[2020-03-14] MEDS: ALBUTEROL HFA INHALER INHALATION PRN ×4 (07:55→20:38)
[2020-03-14] MEDS: ATORVASTATIN 20 MG TAB PO SCH (10:48)
[2020-03-14] MEDS: ZINC SULFATE 220 MG CAP PO SCH (10:48)
[2020-03-14] MEDS: CLOPIDOGREL 75 MG TAB PO SCH (10:48)
[2020-03-14] MEDS: SODIUM BICARBONATE TAB 650 MG TAB PO SCH ×2 (10:48→21:21)
[2020-03-14] MEDS: ASPIRIN 81 MG PO SCH (10:48)
[2020-03-14] MEDS: FINASTERIDE 5 MG TAB PO SCH (10:48)
[2020-03-14] MEDS: TAMSULOSIN 0.4 MG CAP.ER.24H PO SCH (10:48)
[2020-03-14] MEDS: hydrALAZINE HCL 25 MG TAB PO SCH ×3 (10:49→21:21)
[2020-03-14] MEDS: dexAMETHasone 2 MG TAB PO SCH (10:49)
[2020-03-14] MEDS: BICALUTAMIDE 50 MG TAB PO SCH (10:49)
[2020-03-14] MEDS: ENOXAPARIN 40 MG/0.4 ML SYRINGE SQ SCH (10:49)
[2020-03-14] MEDS: lisinopriL 20 MG TAB PO SCH (10:49)
[2020-03-14] MEDS: NON FORMULARY DRUG (Mirabegron [Myrbetriq] 50 MG Tab.Er.24h) PO SCH (10:50)
--- NOTE | 2020-03-14 10:57 | P.PN ---
Subjective Patient is seen in follow for acute kidney injury. Creatinine 0.9 as of yesterday. Denies vomiting or diarrhea. He is off IV fluids. Feels more short of breath today. He is currently on 15 L nonrebreather. Oral intake is fair. Nonoliguric. Vital signs are stable. General: The patient appeared well nourished and normally developed. HEENT: Head exam is unremarkable. Neck is without jugular venous distension. LUNGS: Breath sounds decreased. HEART: Rate and Rhythm are regular. ABDOMEN: Soft, nontender. EXTREMITITES: No edema. Objective - Vital Signs Vital signs: Vital Signs Temp 97.9 F 03/14/20 07:25 Pulse 60 03/14/20 07:25 Resp 20 03/14/20 08:00 BP 189/78 03/14/20 07:25 Pulse Ox 92 L 03/14/20 07:25 Intake & Output 03/13/20 03/14/20 03/14/20 18:59 06:59 18:59 Output Total 450 450 Balance -450 -450 Output: Urine 450 450 Other: Voiding Method Incontinent Incontinent - Labs CBC & Chem 7: 03/13/20 06:15 03/13/20 06:15 Labs: Microbiology - Last 24 Hours (Table) 03/11/20 13:39 Blood Culture - Preliminary Blood No Growth after 48 hours Assessment and Plan Plan: Assessment: 1. Acute kidney injury mostly prerenal secondary to hypovolemia improving with IV hydration. Creatinine was 2.3 on admission and down to 0.9 as of yesterday. 2. Diarrhea likely related to COVID 19 infection. 3. COVID 19 infection maintained on steroids and zinc. Also started on Remdesivir. 4. Hypokalemia from poor intake. Status post placement. 5. Metabolic acidosis secondary to acute kidney injury, GI losses and IV fluids. Maintained on oral bicarbonate. 6. Benign hypertension. Blood pressure high this morning - partially due to steroids. Plan: Remains off IV fluids. Check chest x-ray. Increase hydralazine to 75 mg 3 times daily. To be held for systolic blood pressure less than 125. Okay to maintain ONIEL inhibitor as renal function improving and blood pressure elevated.
[2020-03-14] MEDS: CHOLESTYRAMINE (WITH SUGAR) 4 GM PACKET PO SCH ×3 (10:59→16:27)
[2020-03-14 11:29] LABS: African American GFR (CKD) 98.5 (60.0-200.0); Anion Gap 14.2 mmol/L (4.00-12.00); BUN/Creat Ratio 32.5 Ratio (12.00-20.00); Calcium 8.3 mg/dL (8.7-10.3); Carbon Dioxide 14.8 mmol/L (21.6-31.8); Magnesium 1.6 mg/dL (1.5-2.4); Potassium 3.9 mmol/L (3.5-5.5)
--- NOTE | 2020-03-14 11:31 | P.CNPUL ---
History of Present Illness Consult date: 03/14/20 Reason for consult: dyspnea, cough, hypoxemia, pneumonia Chief complaint: Shortness of breath History of present illness: This is a 79-year-old male who was seen eval reexamined on medical floor patient has a two-week history of ongoing progressive shortness of breath, patient also has problems associated with diarrhea intermittently developed aches and pains and fatigue, patient was diagnosis: 19 pneumonia and a half weeks ago, on arrival his x-ray consistent with bilateral infiltrate consistent with: 19 pneumonia, patient has been on IV REM doesn't wear as well as x-ray drawn, oxygen requirement however went up from 2 L 48 hours ago to 5 L and eventually 15 L high flow oxygen still feeling short of breath sats are 90-92%, chest x-ray bilateral airspace disease last performed on the Review of Systems All systems: negative Past Medical History Past Medical History: Coronary Artery Disease (CAD), CVA/TIA, Hyperlipidemia, H ypertension History of Any Multi-Drug Resistant Organisms: None Reported Past Surgical History: Appendectomy Additional Past Surgical History / Comment(s): carotid artery Past Anesthesia/Blood Transfusion Reactions: No Reported Reaction Past Psychological History: No Psychological Hx Reported Smoking Status: Former smoker Past Alcohol Use History: Occasional Past Drug Use History: None Reported Medications and Allergies Home Medications Medication Instructions Recorded Confirmed Type Aspirin 81 mg PO DAILY 01/28/18 03/11/20 History Clopidogrel [Plavix] 75 mg PO DAILY 01/28/18 03/11/20 History Finasteride [Proscar] 5 mg PO DAILY 01/28/18 03/11/20 History Simvastatin 40 mg PO DAILY 01/28/18 03/11/20 History Tamsulosin [Flomax] 0.4 mg PO DAILY 01/28/18 03/11/20 History lisinopriL [Zestril] 20 mg PO DAILY 01/28/18 03/11/20 History Albuterol Inhaler [Ventolin Hfa 1 puff INHALATION RT-QID PRN #1 03/05/20 03/11/20 Rx Inhaler] inhaler Bicalutamide 50 mg PO DAILY 03/11/20 03/11/20 History Mirabegron [Myrbetriq] 50 mg PO DAILY 03/11/20 03/11/20 History Allergies Allergy/AdvReac Type Severity Reaction Status Date / Time Penicillins Allergy Unknown Verified 03/11/20 12:43 Childhood Physical Exam Vitals: Vital Signs Temp Pulse Resp BP Pulse Ox 03/14/20 08:00 20 03/14/20 07:25 97.9 F 60 18 189/78 92 L 03/14/20 00:44 97.8 F 88 20 179/64 89 L 03/13/20 19:15 97.6 F 92 24 189/76 91 L 03/13/20 17:41 173/97 03/13/20 15:00 98.2 F 74 18 187/71 95 03/13/20 11:56 18 167/82 92 L Intake and Output 03/13/20 03/14/20 03/14/20 22:59 06:59 14:59 Output Total 200 250 Balance -200 -250 Output: Urine 200 250 Other: Voiding Method Incontinent Incontinent - Constitutional General appearance: average body habitus, cooperative, disheveled, morbidly obese - EENT Eyes: EOMI, PERRLA Ears: bilateral: normal - Neck Neck: normal ROM Carotids: bilateral: upstroke normal - Respiratory Respiratory: bilateral: diminished - Cardiovascular Rhythm: regular Heart sounds: normal: S1, S2 - Neurologic Neurologic: CNII-XII intact - Musculoskeletal Musculoskeletal: gait normal, generalized weakness, strength equal bilaterally - Psychiatric Psychiatric: A&O x's 3, appropriate affect, intact judgment & insight Results - Laboratory Findings CBC and BMP: 03/13/20 06:15 03/13/20 06:15 Abnormal lab findings: Abnormal Labs 03/11/20 03/11/20 03/11/20 10:54 10:54 10:54 RBC Hct Lymphocytes # 0.2 L Potassium Chloride Carbon Dioxide 20 L BUN 32 H Creatinine 2.33 H Est GFR (CKD-EPI)NonAf BUN/Creatinine Ratio Glucose 127 H Calcium AST 66 H Lactate Dehydrogenase C-Reactive Protein Total Protein Albumin Albumin/Globulin Ratio Urine Protein 1+ H Urine Glucose (UA) Trace H Urine Blood Trace H Urine WBC 73 H Urine WBC Clumps Moderate H Urine Bacteria Few H Urine Mucus Rare H 03/12/20 03/12/20 03/13/20 05:55 05:55 06:15 RBC 3.91 L Hct 37.2 L Lymphocytes # Potassium 3.4 L Chloride 112 H 114 H Carbon Dioxide 17.3 L 19.5 L BUN Creatinine Est GFR (CKD-EPI)NonAf 51.9 L BUN/Creatinine Ratio 20.77 H 30.00 H Glucose 125 H 123 H Calcium 8.0 L 8.3 L AST 52 H Lactate Dehydrogenase 401 H C-Reactive Protein 6.7 H Total Protein 5.2 L Albumin 3.10 L Albumin/Globulin Ratio 1.48 L Urine Protein Urine Glucose (UA) Urine Blood Urine WBC Urine WBC Clumps Urine Bacteria Urine Mucus 03/13/20 06:15 RBC 4.15 L Hct Lymphocytes # 0.4 L Potassium Chloride Carbon Dioxide BUN Creatinine Est GFR (CKD-EPI)NonAf BUN/Creatinine Ratio Glucose Calcium AST Lactate Dehydrogenase C-Reactive Protein Total Protein Albumin Albumin/Globulin Ratio Urine Protein Urine Glucose (UA) Urine Blood Urine WBC Urine WBC Clumps Urine Bacteria Urine Mucus - Diagnostic Findings Chest x-ray: report reviewed, image reviewed (Finding as noted above) Assessment and Plan Assessment: Sepsis Acute hypoxic respiratory failure Acute kidney injury likely prerenal improved and normalized with fluid resuscitation Covid in 19 pneumonia Hypertension hypertensive cardiovascular disease History of coronary artery disease Dyslipidemia hypertension hypertensive cardiovascular disease TIA Plan: Worsening hypoxemia most likely related to Covid 19 pneumonia and respiratory failure associated however other etiologies like fluid overload or pulmonary embolism cannot be excluded, we'll do a computed tomography scan of the chest, continue current plan of care including Decadron, REM doesn't wear, and anticoagulation with Lovenox Time with Patient: Greater than 30
--- NOTE | 2020-03-14 11:45 | XR ---
EXAMINATION TYPE: XR chest 1V DATE OF EXAM: 03/14/2020 COMPARISON: NONE HISTORY: sob TECHNIQUE: Single frontal view of the chest is obtained. FINDINGS: Diffuse bilateral infiltrates. No pleural effusion or pneumothorax. Heart size stable. Ath erosclerotic change aorta. Aortic heart size normal. Hypertrophic and degenerative change of the spin e IMPRESSION: Diffuse bilateral airspace disease is stable correlate for diffuse pneumonia. Pulmonary edema not excluded, but felt less likely given the absence of pleural fluid.
[2020-03-14] MEDS ORDERED: SODIUM BICARB 8.4% 50 ML SYR (1 MEQ/ML) IV STA (13:15)
[2020-03-14] MEDS: REMDESIVIR (EUA) 100 MG in SODIUM CHLORIDE 0.9% 250 ML IVPB SCH (13:28)
--- NOTE | 2020-03-14 14:50 | CT ---
CT CHEST FOR PULMONARY EMBOLISM. EXAMINATION TYPE: CT angio chest DATE OF EXAM: 03/14/2020 INDICATION: difficulty breathing, pulmonary embolism CT DLP: 545.2 mGycm, Automated exposure control for dose reduction was used. CONTRAST: Patient injected with 100 mL of Isovue 370. COMPARISON: None TECHNIQUE: CT of the chest is performed on a spiral scan at 2 mm thick sections. Study is performed with intravenous contrast timed for evaluation for pulmonary embolism. This will limit additional po rtions of the evaluation. 3-D MIP images reconstructed by the technologist are reviewed on the compu ter in the coronal and sagittal planes. FINDINGS: No persistent filling defects are evident to suggest an acute pulmonary embolism. No mediastinal or hilar adenopathy enlarged by CT criteria is evident. The ascending aorta diameter at the level of the main pulmonary artery is 3.0 cm. The main pulmonary artery diameter at the bifur cation is 2.8 cm. Pulmonary fibrosis at the lung apices. There is diffuse increased lung markings be related to pulmona ry edema. Consider atypical pneumonia within the differential. Diffuse upper and mid lung field areas of pneumonitis are present. This extends towards the right base. Small bilateral pleural effusions are present. This is slightly greater on the right. Limited CT section through the upper abdomen are unremarkable. IMPRESSIONS: 1. Small bilateral pleural effusions. 2. Areas of pneumonitis, pulmonary edema and atypical pneumonia should be considered
[2020-03-14] MEDS: MAGNESIUM SULFATE-D5W PMX 1 GM in DEXTROSE/WATER 1 100ML.BAG IVPB SCH ×2 (15:31→16:49)
--- NOTE | 2020-03-14 15:56 | P.PN ---
Subjective Progress Note Date: 03/14/20 Patient is a pleasant 70-year-old male came in with complaints of diarrhea. Patient was having several episodes of diarrhea patient had was having generalized body aches fatigue. Patient is found to have Covid 19 which was diagnosed the of this month. Patient was having these symptoms for about a week. Patient did have nausea vomiting as well. Patient has not been eating or drinking since the symptoms and patient is found to be in acute renal failure. Patient was really doesn't have any fever. Patient denied any shortness of breath is having cough. Patient had a chest x-ray which showed bilateral pneumonia which is consistent with Covid 19. Patient denied any UTI-like symptoms but the because of mildly abnormal urine patient was given a dose of Rocephin in ER. 03/12/2020 Patient is seen and evaluated in follow-up today and continues to have multiple episodes of diarrhea and has been incontinent of stool. Patient continues to have some generalized body aches along with decreased appetite and general malaise. Patient is Covid 19 positive and currently being followed by [facility] disease. Nephrology following as well for acute renal failure although has improved at this time. Patient is currently maintained on oral Zithromax along with dexamethasone and subcutaneous Lovenox zinc supplements. Nephrology was consulted and following for acute renal failure and sodium bicarbonate tablets have been added. Current sodium is 141 with a BUN of 27 and creatinine of 1.3. Review of systems: Constitutional: Reports fatigue, with no reports of fever, or chills Cardiovascular: No reports of chest pain or palpitations Respiratory: Reports mild shortness of breath GI: No reports of nausea, vomiting. Reports multiple episodes of diarrhea : No reports of dysuria or retention Neurovascular: Reports weakness All medications have been reviewed 03/13/2020 Patient is seen in follow-up today and respiratory status has worsened and is currently maintained on 4-5 L via nasal cannula with 92% saturation. Patient's blood pressure is also continue to be elevated and lisinopril was resumed. IV fluids discontinued per nephrology. Creatinine continues to improve and is currently 0.9. Sodium is 142, and repeat potassium is 4.0. Patient only had one episode of diarrhea last night and is maintained on Questran at this time. Patient also continues to have poor appetite. Infectious disease is following and patient completed a course of Zithromax and is currently maintained on dexamethasone, Lovenox, zinc supplements, and Remdesivir was initiated today. Will repeat labs and continue to monitor closely. Droplet isolation precautions maintained. Currently patient denies any chest pain or palpitations. Patient is afebrile. No reports of nausea or vomiting and patient is tolerating diet. 03/14/2020 Patient is seen and evaluated in follow-up and continues to have respiratory distress and increasing shortness of breath requiring nonrebreather and high kathy w oxygen at 15 L. A chest x-ray was done showing diffuse bilateral airspace disease is stable and to correlate for diffuse pneumonia although pulmonary edema is not excluded. A chest CTA was ordered by Dr. Jackie desouza which showed small bilateral pleural effusions and areas of pneumonitis and atypical pneumonia. Infectious disease is also following and patient is maintained on Remdesivir, Lovenox, and dexamethasone and will continue at this time. Review of systems: Constitutional: reports fatigue, no reports of fever, or chills Cardiovascular: No reports of chest pain or palpitations Respiratory: Reports worsening shortness of breath and cough GI: No reports of nausea, vomiting, or diarrhea : No reports of dysuria or retention Neurovascular: Reports weakness with no reports of numbness All medications have been reviewed Objective - Vital Signs Vital signs: Vital Signs Temp 97.8 F 03/14/20 11:08 Pulse 81 03/14/20 11:08 Resp 17 03/14/20 11:08 BP 181/65 03/14/20 11:08 Pulse Ox 97 03/14/20 11:08 Intake & Output 03/13/20 03/14/20 03/14/20 18:59 06:59 18:59 Output Total 450 450 Balance -450 -450 Output: Urine 450 450 Other: Voiding Method Incontinent Incontinent # Voids 2 - Exam GENERAL: The patient is alert and oriented x3, in mild respiratory distress. Well developed, well nourished. HEENT: Pupils are round and equally reacting to light. EOMI. No scleral icterus. No conjunctival pallor. Normocephalic, atraumatic. No pharyngeal erythema. No thyromegaly. CARDIOVASCULAR: S1 and S2 present. No murmurs, rubs, or gallops. PULMONARY: Breath sounds diminished bilaterally with no wheezing or rhonchi noted ABDOMEN: Soft, nontender, nondistended, normoactive bowel sounds. No palpable organomegaly. MUSCULOSKELETAL: No joint swelling or deformity. EXTREMITIES: No cyanosis, clubbing, or pedal edema. NEUROLOGICAL: Gross neurological examination did not reveal any focal deficits. Diffusely weak SKIN: No rashes. - Labs CBC & Chem 7: 03/13/20 06:15 03/14/20 06:49 Labs: Abnormal Lab Results - Last 24 Hours (Table) 03/14/20 Range/Units 06:49 Chloride 113 H (96-109) mmol/L Carbon Dioxide 14.8 L (21.6-31.8) mmol/L Anion Gap 14.20 H (4.00-12.00) mmol/L BUN/Creatinine Ratio 32.50 H (12.00-20.00) Ratio Calcium 8.3 L (8.7-10.3) mg/dL Microbiology - Last 24 Hours (Table) 03/11/20 13:39 Blood Culture - Preliminary Blood No Growth after 48 hours Assessment and Plan Assessment: -Sepsis: Secondary to Covid 19 pneumonia. Present on admission Patient is maintained on Decadron along with Lovenox. Remdesivir initiated. Infectious disease following. -Pneumonitis/pneumonia secondary to covid 19 -Acute hypoxic respiratory failure secondary to Covid 19 pneumonia, pulmonary consulted -Diarrhea most likely secondary to Covid 19, improving -Acute renal failure mostly prerenal azotemia from nausea vomiting, diarrhea: Improving. Patient is maintained on sodium bicarb tablets have been added. Nephrology following. Current creatinine is 0.9. Will repeat a.m. labs -CAD -Severe TIA in the past with some right-sided deficit -Gait dysfunction -Hyperlipidemia -Hypertension, home medications resumed, by mouth hydralazine added per nephrology -GI prophylaxis -DVT prophylaxis Plan: Continue with current medications and will continue to monitor vital signs and labs closely. Nephrology and infectious disease are following. Pulmonary consulted as patient continues to have respiratory distress currently requiring nonrebreather and high flow oxygen at 15 L. Chest x-ray and CTA as mentioned previously with no reports of pneumothorax or PE on the CT. Remdesivir initiated. Will repeat a.m. labs. Further recommendations to follow.
--- NOTE | 2020-03-14 22:56 | PN ---
PROGRESS NOTE DATE OF SERVICE: 03/14/2020 REASON FOR FOLLOWUP: Acute COVID-19 pneumonia. INTERVAL HISTORY: The patient is currently afebrile. The patient seems to have problem with hypoxemia requiring high-flow nasal cannula oxygen. The patient denies having any chest pain. No nausea, vomiting, abdominal pain or diarrhea. PHYSICAL EXAMINATION: Blood pressure 150/65 with a pulse of 80, temperature 98. He is 95% on 10 L high-flow oxygen. General description is an elderly male lying in bed in no distress. RESPIRATORY SYSTEM: Unlabored breathing with decreased intensity of breath sounds. No wheeze. HEART: S1, S2. Regular rate and rhythm. ABDOMEN: Soft. No tenderness. LABS: BUN of 26, creatinine 0.8. The patient did have a CT angiogram that was negative for PE but did show evidence of bilateral pneumonia. DIAGNOSTIC IMPRESSION AND PLAN: Patient with acute COVID-19 pneumonia in this patient currently covered with dexamethasone, Lovenox and remdesivir; to continue along with Rocephin and monitor his clinical course closely. Continue with respiratory support. MMODL / IJN: [id number] /
[2020-03-15] MEDS: hydrALAZINE HCL 20 MG/ML 1 ML VIAL IVP PRN (03:01)
[2020-03-15] MEDS: CLOPIDOGREL 75 MG TAB PO SCH (07:53)
[2020-03-15] MEDS: BICALUTAMIDE 50 MG TAB PO SCH (07:53)
[2020-03-15] MEDS: ASPIRIN 81 MG PO SCH (07:53)
[2020-03-15] MEDS: ZINC SULFATE 220 MG CAP PO SCH (07:53)
[2020-03-15] MEDS: TAMSULOSIN 0.4 MG CAP.ER.24H PO SCH (07:53)
[2020-03-15] MEDS: hydrALAZINE HCL 25 MG TAB PO SCH (07:53)
[2020-03-15] MEDS: ALBUTEROL HFA INHALER INHALATION PRN ×3 (07:54→16:13)
[2020-03-15] MEDS: FINASTERIDE 5 MG TAB PO SCH (07:54)
[2020-03-15] MEDS: SODIUM BICARBONATE TAB 650 MG TAB PO SCH ×2 (07:54→21:44)
[2020-03-15] MEDS: ENOXAPARIN 40 MG/0.4 ML SYRINGE SQ SCH (07:54)
[2020-03-15] MEDS: lisinopriL 20 MG TAB PO SCH (07:54)
[2020-03-15] MEDS: ATORVASTATIN 20 MG TAB PO SCH (07:54)
[2020-03-15] MEDS: dexAMETHasone 2 MG TAB PO SCH (07:54)
[2020-03-15] MEDS: NON FORMULARY DRUG (Mirabegron [Myrbetriq] 50 MG Tab.Er.24h) PO SCH (07:55)
[2020-03-15] MEDS: CHOLESTYRAMINE (WITH SUGAR) 4 GM PACKET PO SCH ×2 (07:55→12:06)
--- NOTE | 2020-03-15 10:10 | P.PN ---
Subjective Progress Note Date: 03/15/20 Principal diagnosis: Small pleural effusion bilateral with fluid overload Sepsis Acute hypoxic respiratory failure Acute kidney injury likely prerenal improved and normalized with fluid resuscitation Covid in 19 pneumonia Hypertension hypertensive cardiovascular disease History of coronary artery disease Dyslipidemia hypertension hypertensive cardiovascular disease TIA 03/15/2020, patient seen eval examined during the rounds labs reviewed medications reviewed care plan discussed with the staff at length, cough congestion is slightly improved patient is down to 10 L high flow oxygen, saturation is 95-98%, respiratory status much improved today compared to yesterday, off of IV fluids, computed tomography scan of the chest reviewed no pulmonary embolism is present, interstitial edema and bilateral small pleural effusion noted consistent with fluid overload along with bilateral infiltrates of covid-19 with pneumonia This is a 79-year-old male who was seen eval reexamined on medical floor patient has a two-week history of ongoing progressive shortness of breath, patient also has problems associated with diarrhea intermittently developed aches and pains and fatigue, patient was diagnosis: 19 pneumonia and a half weeks ago, on arrival his x-ray consistent with bilateral infiltrate consistent with: 19 pneumonia, patient has been on IV REM doesn't wear as well as x-ray drawn, oxygen requirement however went up from 2 L 48 hours ago to 5 L and eventually 1 5 L high flow oxygen still feeling short of breath sats are 90-92%, chest x-ray bilateral airspace disease last performed on the Objective - Vital Signs Vital signs: Vital Signs Temp 98.5 F 03/15/20 09:55 Pulse 90 03/15/20 09:55 Resp 18 03/15/20 05:34 BP 169/55 03/15/20 09:55 Pulse Ox 92 L 03/15/20 09:55 Intake & Output 03/14/20 03/15/20 03/15/20 18:59 06:59 18:59 Intake Total 120 240 Output Total 600 Balance 120 -360 Intake: Oral 120 240 Output: Urine 600 Other: Voiding Method Incontinent Incontinent # Voids 2 1 - Exam - Constitutional General appearance: average body habitus, cooperative, disheveled, morbidly obese - EENT Eyes: EOMI, PERRLA Ears: bilateral: normal - Neck Neck: normal ROM Carotids: bilateral: upstroke normal - Respiratory Respiratory: bilateral: diminished - Cardiovascular Rhythm: regular Heart sounds: normal: S1, S2 - Neurologic Neurologic: CNII-XII intact - Musculoskeletal Musculoskeletal: gait normal, generalized weakness, strength equal bilaterally - Psychiatric Psychiatric: A&O x's 3, appropriate affect, intact judgment & insight - Labs CBC & Chem 7: 03/13/20 06:15 03/14/20 06:49 Labs: Abnormal Lab Results - Last 24 Hours (Table) 03/14/20 Range/Units 06:49 Chloride 113 H (96-109) mmol/L Carbon Dioxide 14.8 L (21.6-31.8) mmol/L Anion Gap 14.20 H (4.00-12.00) mmol/L BUN/Creatinine Ratio 32.50 H (12.00-20.00) Ratio Calcium 8.3 L (8.7-10.3) mg/dL Microbiology - Last 24 Hours (Table) 03/11/20 13:39 Blood Culture - Preliminary Blood No Growth after 72 hours Assessment and Plan Assessment: Bilateral pleural effusion and fluid overload appears to be reason along with Covid 19 pneumonia for worsening of acute respiratory failure Sepsis Acute hypoxic respiratory failure Acute kidney injury likely prerenal improved and normalized with fluid resuscitation Covid in 19 pneumonia Hypertension hypertensive cardiovascular disease History of coronary artery disease Dyslipidemia hypertension hypertensive cardiovascular disease TIA Plan: Computed tomography scan of the chest reviewed continue auto diuresis titrated oxygen down as tolerated to keep saturation over 90-92% Worsening hypoxemia most likely related to Covid 19 pneumonia and respiratory failure associated however other etiologies like fluid overload Continue Decadron, Remdesivir , titrated oxygen as tolerated anticipate should be able to bring down in next 24 hours 2-4 L nasal cannula Time with Patient: Greater than 30
[2020-03-15] MEDS ORDERED: ONDANSETRON 4 MG/2 ML VIAL IVP PRN (10:43)
[2020-03-15 10:51] LABS: BUN/Creat Ratio 35.71 Ratio (12.00-20.00); Calcium 8.2 mg/dL (8.7-10.3); Magnesium 1.8 mg/dL (1.5-2.4); Non-African American GFR(CKD) 89.8 (60.0-200.0); Potassium 3.4 mmol/L (3.5-5.5)
[2020-03-15] MEDS ORDERED: POTASSIUM CHLORIDE ER 20 MEQ TAB.ER PO STA (11:38)
[2020-03-15] MEDS ORDERED: FUROSEMIDE 10 MG/ML 2 ML VIAL IV ONE (11:48)
--- NOTE | 2020-03-15 11:48 | P.PN ---
Subjective Patient is seen in follow for acute kidney injury. Renal function back to baseline. Denies vomiting or diarrhea. He is off IV fluids. Working with physical therapy. He is currently on 10 L nasal cannula. Oral intake is fair. Nonoliguric. Vital signs are stable. General: The patient appeared well nourished and normally developed. HEENT: Head exam is unremarkable. Neck is without jugular venous distension. LUNGS: Breath sounds decreased. HEART: Rate and Rhythm are regular. ABDOMEN: Soft, nontender. EXTREMITITES: No edema. Objective - Vital Signs Vital signs: Vital Signs Temp 98.5 F 03/15/20 09:55 Pulse 90 03/15/20 09:55 Resp 18 03/15/20 05:34 BP 169/55 03/15/20 09:55 Pulse Ox 92 L 03/15/20 09:55 Intake & Output 03/14/20 03/15/20 03/15/20 18:59 06:59 18:59 Intake Total 120 240 240 Output Total 600 Balance 120 -360 240 Intake: Oral 120 240 240 Output: Urine 600 Other: Voiding Method Incontinent Incontinent Incontinent # Voids 2 1 - Labs CBC & Chem 7: 03/13/20 06:15 03/15/20 06:01 Labs: Abnormal Lab Results - Last 24 Hours (Table) 03/15/20 Range/Units 06:01 Potassium 3.4 L (3.5-5.5) mmol/L BUN/Creatinine Ratio 35.71 H (12.00-20.00) Ratio Calcium 8.2 L (8.7-10.3) mg/dL Microbiology - Last 24 Hours (Table) 03/11/20 13:39 Blood Culture - Preliminary Blood No Growth after 72 hours Assessment and Plan Plan: Assessment: 1. Acute kidney injury mostly prerenal secondary to hypovolemia improving with IV hydration. Creatinine was 2.3 on admission and down to 0.7 as of today. 2. Diarrhea likely related to COVID 19 infection. Small bilateral effusions noted on CTA. 3. COVID 19 infection maintained on steroids and zinc. Also on Remdesivir. 4. Hypokalemia from poor intake. Magnesium normal. 5. Metabolic acidosis secondary to acute kidney injury, GI losses and IV fluids. Maintained on oral bicarbonate. Better. 6. Benign hypertension. Blood pressure still on the higher side - partially due to steroids. Plan: Remains off IV fluids. Lasix 20 mg IV once today. Replace potassium. 40 mEq today. Increase hydralazine to 100 mg 3 times daily. To be held for systolic blood pressure less than 125.
[2020-03-15] MEDS: REMDESIVIR (EUA) 100 MG in SODIUM CHLORIDE 0.9% 250 ML IVPB SCH (12:02)
[2020-03-15] MEDS ORDERED: CHOLESTYRAMINE (WITH SUGAR) 4 GM PACKET PO PRN (13:53)
--- NOTE | 2020-03-15 14:17 | P.PN ---
Subjective Progress Note Date: 03/15/20 Patient is a pleasant 70-year-old male came in with complaints of diarrhea. Patient was having several episodes of diarrhea patient had was having generalized body aches fatigue. Patient is found to have Covid 19 which was diagnosed the of this month. Patient was having these symptoms for about a week. Patient did have nausea vomiting as well. Patient has not been eating or drinking since the symptoms and patient is found to be in acute renal failure. Patient was really doesn't have any fever. Patient denied any shortness of breath is having cough. Patient had a chest x-ray which showed bilateral pneumonia which is consistent with Covid 19. Patient denied any UTI-like symptoms but the because of mildly abnormal urine patient was given a dose of Rocephin in ER. 03/12/2020 Patient is seen and evaluated in follow-up today and continues to have multiple episodes of diarrhea and has been incontinent of stool. Patient continues to have some generalized body aches along with decreased appetite and general malaise. Patient is Covid 19 positive and currently being followed by [facility]. Nephrology following as well for acute renal failure although has improved at this time. Patient is currently maintained on oral Zithromax along with dexamethasone and subcutaneous Lovenox zinc supplements. Nephrology was consulted and following for acute renal failure and sodium bicarbonate tablets have been added. Current sodium is 141 with a BUN of 27 and creatinine of 1.3. Review of systems: Constitutional: Reports fatigue, with no reports of fever, or chills Cardiovascular: No reports of chest pain or palpitations Respiratory: Reports mild shortness of breath GI: No reports of nausea, vomiting. Reports multiple episodes of diarrhea : No reports of dysuria or retention Neurovascular: Reports weakness All medications have been reviewed 03/13/2020 Patient is seen in follow-up today and respiratory status has worsened and is currently maintained on 4-5 L via nasal cannula with 92% saturation. Patient's blood pressure is also continue to be elevated and lisinopril was resumed. IV fluids discontinued per nephrology. Creatinine continues to improve and is currently 0.9. Sodium is 142, and repeat potassium is 4.0. Patient only had one episode of diarrhea last night and is maintained on Questran at this time. Patient also continues to have poor appetite. Infectious disease is following and patient completed a course of Zithromax and is currently maintained on dexamethasone, Lovenox, zinc supplements, and Remdesivir was initiated today. Will repeat labs and continue to monitor closely. Droplet isolation precautions maintained. Currently patient denies any chest pain or palpitations. Patient is afebrile. No reports of nausea or vomiting and patient is tolerating diet. 03/14/2020 Patient is seen and evaluated in follow-up and continues to have respiratory distress and increasing shortness of breath requiring nonrebreather and high kathy w oxygen at 15 L. A chest x-ray was done showing diffuse bilateral airspace disease is stable and to correlate for diffuse pneumonia although pulmonary edema is not excluded. A chest CTA was ordered by Dr. Jackie desouza which showed small bilateral pleural effusions and areas of pneumonitis and atypical pneumonia. Infectious disease is also following and patient is maintained on Remdesivir, Lovenox, and dexamethasone and will continue at this time. Review of systems: Constitutional: reports fatigue, no reports of fever, or chills Cardiovascular: No reports of chest pain or palpitations Respiratory: Reports worsening shortness of breath and cough GI: No reports of nausea, vomiting, or diarrhea : No reports of dysuria or retention Neurovascular: Reports weakness with no reports of numbness All medications have been reviewed 03/15/2020 Patient is seen in follow-up and remains on high flow oxygen for increasing shortness of breath. Patient has been weaned down to 10 L high flow. Patient states he is having some nausea and abdominal discomfort today. Zofran ordered. Infectious disease and pulmonary following and will continue on current medication regimen. Patient is in isolation for Covid 19 infection. Patient states that his diarrhea has resolved and is refusing Questran at this time. PT/OT following as patient continues to be quite weak and not ambulating and wou ld benefit from rehab once discharged. social work consulted as patient may need assistance with discharge planning needs or possibility of ECF rehab placement. Potassium today is 3.4 and will be replaced. Magnesium is 1.8 and current sodium is 141. Will repeat a.m. labs. Review of systems: Constitutional: Reports generalized weakness, and fatigue Cardiovascular: No reports of chest pain or palpitations Respiratory: Reports shortness of breath and cough GI: Reports nausea with no reports of vomiting or diarrhea : No reports of dysuria or retention Neurovascular: reports of weakness with no reports of numbness All medications have been reviewed Objective - Vital Signs Vital signs: Vital Signs Temp 98.5 F 03/15/20 09:55 Pulse 90 03/15/20 09:55 Resp 18 03/15/20 05:34 BP 169/55 03/15/20 09:55 Pulse Ox 92 L 03/15/20 09:55 Intake & Output 03/14/20 03/15/20 03/15/20 18:59 06:59 18:59 Intake Total 120 240 240 Output Total 600 Balance 120 -360 240 Intake: Oral 120 240 240 Output: Urine 600 Other: Voiding Method Incontinent Incontinent Incontinent # Voids 2 1 - Exam GENERAL: The patient is alert and oriented x3, in mild respiratory distress. Well developed, well nourished. HEENT: Pupils are round and equally reacting to light. EOMI. No scleral icterus. No conjunctival pallor. Normocephalic, atraumatic. No pharyngeal erythema. No thyromegaly. CARDIOVASCULAR: S1 and S2 present. No murmurs, rubs, or gallops. PULMONARY: Breath sounds diminished bilaterally with no wheezing or rhonchi noted ABDOMEN: Soft, nontender, nondistended, normoactive bowel sounds. No palpable or ganomegaly. MUSCULOSKELETAL: No joint swelling or deformity. EXTREMITIES: No cyanosis, clubbing, or pedal edema. NEUROLOGICAL: Gross neurological examination did not reveal any focal deficits. Diffusely weak SKIN: No rashes. - Labs CBC & Chem 7: 03/13/20 06:15 03/15/20 06:01 Labs: Abnormal Lab Results - Last 24 Hours (Table) 03/15/20 Range/Units 06:01 Potassium 3.4 L (3.5-5.5) mmol/L BUN/Creatinine Ratio 35.71 H (12.00-20.00) Ratio Calcium 8.2 L (8.7-10.3) mg/dL Microbiology - Last 24 Hours (Table) 03/11/20 13:39 Blood Culture - Preliminary Blood No Growth after 72 hours Assessment and Plan Assessment: -Sepsis: Secondary to Covid 19 pneumonia. Present on admission Patient is maintained on Decadron along with Lovenox. Remdesivir initiated. Infectious disease following. -Pneumonitis/pneumonia secondary to covid 19 -Acute hypoxic respiratory failure secondary to Covid 19 pneumonia, pulmonary consulted -Diarrhea most likely secondary to Covid 19, improving -Acute renal failure mostly prerenal azotemia from nausea vomiting, diarrhea: Improving. Patient is maintained on sodium bicarb tablets have been added. Nephrology following. Current creatinine is 0.9. Will repeat a.m. labs -CAD -Severe TIA in the past with some right-sided deficit -Gait dysfunction -Hyperlipidemia -Hypertension, home medications resumed, by mouth hydralazine added per nephrology -GI prophylaxis -DVT prophylaxis Plan: Continue with current medications and will continue to monitor vital signs and labs closely. Nephrology and infectious disease are following. Pulmonary consulted as patient continues to have respiratory distress currently requiring nonrebreather and high flow oxygen at 15 L. Chest x-ray and CTA as mentioned previously with no reports of pneumothorax or PE on the CT. Remdesivir initiated. Will repeat a.m. labs. Further recommendations to follow.
[2020-03-15] MEDS: hydrALAZINE HCL 50 MG TAB PO SCH ×2 (15:51→21:44)
--- NOTE | 2020-03-16 06:02 | PN ---
PROGRESS NOTE DATE OF SERVICE: 03/15/2020 REASON FOR FOLLOWUP: Acute COVID-19 pneumonia. INTERVAL HISTORY: Patient is currently afebrile. The patient is breathing slightly comfortably. The patient denies having any chest pain, cough, not bringing up any sputum. No nausea, no vomiting. No abdominal pain or diarrhea. EXAMINATION: Blood pressure 126/53 with a pulse of 84, temperature 98. He is 97% on L nasal cannula. General description is an elderly male sitting up in the chair in no distress. Respiratory system: Unlabored breathing, decreased breath sounds. Heart S1, S2. Regular rate and rhythm. Abdomen is soft, no tenderness. LABS: BUN of 25, creatinine 0.7. IMPRESSION/PLAN: Patient with acute COVID-19 pneumonia. This patient is currently covered with Remdesivir and Lovenox. will continue along with respiratory support and monitor clinical course closely. MMODL / IJN: [id number] /
[2020-03-16] MEDS: ALBUTEROL HFA INHALER INHALATION PRN (08:09)
--- NOTE | 2020-03-16 08:43 | P.PN ---
Subjective Progress Note Date: 03/16/20 Principal diagnosis: Small pleural effusion bilateral with fluid overload Sepsis Acute hypoxic respiratory failure Acute kidney injury likely prerenal improved and normalized with fluid resuscitation Covid in 19 pneumonia Hypertension hypertensive cardiovascular disease History of coronary artery disease Dyslipidemia hypertension hypertensive cardiovascular disease TIA 03/16/2020, patient seen eval examined during the rounds labs reviewed medications reviewed, patient remains on high flow oxygen, oxygen saturation is mid 90s remains short of breath but severity has improved, patient remains on therapy for Covid 19 pneumonia cough congestion is better but shortness of breath is there, 03/15/2020, patient seen eval examined during the rounds labs reviewed medicat ions reviewed care plan discussed with the staff at length, cough congestion is slightly improved patient is down to 10 L high flow oxygen, saturation is 95- 98%, respiratory status much improved today compared to yesterday, off of IV fluids, computed tomography scan of the chest reviewed no pulmonary embolism is present, interstitial edema and bilateral small pleural effusion noted consistent with fluid overload along with bilateral infiltrates of covid-19 with pneumonia This is a 79-year-old male who was seen eval reexamined on medical floor patient has a two-week history of ongoing progressive shortness of breath, patient also has problems associated with diarrhea intermittently developed aches and pains and fatigue, patient was diagnosis: 19 pneumonia and a half weeks ago, on arrival his x-ray consistent with bilateral infiltrate consistent with: 19 pneumonia, patient has been on IV REM doesn't wear as well as x-ray drawn, oxygen requirement however went up from 2 L 48 hours ago to 5 L and eventually 15 L high flow oxygen still feeling short of breath sats are 90-92%, chest x-ray bilateral airspace disease last performed on the Objective - Vital Signs Vital signs: Vital Signs Temp 97.8 F 03/16/20 06:00 Pulse 93 03/16/20 06:00 Resp 18 03/16/20 06:00 BP 163/63 03/16/20 06:00 Pulse Ox 93 L 03/16/20 06:00 Intake & Output 03/15/20 03/16/20 03/16/20 18:59 06:59 18:59 Intake Total 480 Output Total 1325 Balance 480 -1325 Intake: Oral 480 Output: Urine 1325 Other: Voiding Method Incontinent Incontinent # Voids 3 - Exam - Constitutional General appearance: average body habitus, cooperative, disheveled, morbidly obese - EENT Eyes: EOMI, PERRLA Ears: bilateral: normal - Neck Neck: normal ROM Carotids: bilateral: upstroke normal - Respiratory Respiratory: bilateral: diminished - Cardiovascular Rhythm: regular Heart sounds: normal: S1, S2 - Neurologic Neurologic: CNII-XII intact - Musculoskeletal Musculoskeletal: gait normal, generalized weakness, strength equal bilaterally - Psychiatric Psychiatric: A&O x's 3, appropriate affect, intact judgment & insight - Labs CBC & Chem 7: 03/13/20 06:15 03/15/20 06:01 Labs: Abnormal Lab Results - Last 24 Hours (Table) 03/15/20 Range/Units 06:01 Potassium 3.4 L (3.5-5.5) mmol/L BUN/Creatinine Ratio 35.71 H (12.00-20.00) Ratio Calcium 8.2 L (8.7-10.3) mg/dL Microbiology - Last 24 Hours (Table) 03/11/20 13:39 Blood Culture - Preliminary Blood No Growth after 96 hours Assessment and Plan Assessment: Bilateral pleural effusion and fluid overload appears to be reason along with Covid 19 pneumonia for worsening of acute respiratory failure Sepsis Acute hypoxic respiratory failure Acute kidney injury likely prerenal improved and normalized with fluid resuscitation Covid 19 pneumonia Hypertension hypertensive cardiovascular disease History of coronary artery disease Dyslipidemia hypertension hypertensive cardiovascular disease TIA Plan: Computed tomography scan of the chest reviewed continue auto diuresis titrated oxygen down as tolerated to keep saturation over 90-92% Worsening hypoxemia most likely related to Covid 19 pneumonia and respiratory failure associated however other etiologies like fluid overload appears to be less likely Continue Decadron, Remdesivir , titrated oxygen as tolerated anticipate should be able to bring down in next 24 hours 2-4 L nasal cannula Time with Patient: Greater than 30
[2020-03-16] MEDS: SODIUM BICARBONATE TAB 650 MG TAB PO SCH ×2 (09:19→21:49)
[2020-03-16] MEDS: ENOXAPARIN 40 MG/0.4 ML SYRINGE SQ SCH (09:19)
[2020-03-16] MEDS: ASPIRIN 81 MG PO SCH (09:19)
[2020-03-16] MEDS: hydrALAZINE HCL 50 MG TAB PO SCH ×3 (09:20→21:50)
[2020-03-16] MEDS: TAMSULOSIN 0.4 MG CAP.ER.24H PO SCH (09:21)
[2020-03-16] MEDS: dexAMETHasone 2 MG TAB PO SCH (09:21)
[2020-03-16] MEDS: CLOPIDOGREL 75 MG TAB PO SCH (09:22)
[2020-03-16] MEDS: FINASTERIDE 5 MG TAB PO SCH (09:22)
[2020-03-16] MEDS: lisinopriL 20 MG TAB PO SCH (09:22)
[2020-03-16] MEDS: ZINC SULFATE 220 MG CAP PO SCH (09:22)
[2020-03-16] MEDS: BICALUTAMIDE 50 MG TAB PO SCH (09:22)
[2020-03-16] MEDS: ATORVASTATIN 20 MG TAB PO SCH (09:22)
[2020-03-16] MEDS: NON FORMULARY DRUG (Mirabegron [Myrbetriq] 50 MG Tab.Er.24h) PO SCH (09:28)
[2020-03-16 09:31] LABS: Anion Gap 6.8 mmol/L (4.00-12.00); BUN/Creat Ratio 45.71 Ratio (12.00-20.00); Carbon Dioxide 26.2 mmol/L (21.6-31.8); Magnesium 1.6 mg/dL (1.5-2.4); Non-African American GFR(CKD) 89.8 (60.0-200.0); Potassium 3.5 mmol/L (3.5-5.5)
[2020-03-16] MEDS: REMDESIVIR (EUA) 100 MG in SODIUM CHLORIDE 0.9% 250 ML IVPB SCH (12:50)
[2020-03-16] MEDS ORDERED: POTASSIUM CHLORIDE ER 20 MEQ TAB.ER PO STA (14:47)
--- NOTE | 2020-03-16 14:53 | P.PN ---
Subjective Patient is seen in follow for acute kidney injury. Renal function back to baseline. Denies vomiting or diarrhea. He is off IV fluids. Has been with physical therapy. Remains on 10 L high flow nasal cannula. Oral intake is fair. Nonoliguric. Bp better. Vital signs are stable. General: The patient appeared well nourished and normally developed. HEENT: Head exam is unremarkable. Neck is without jugular venous distension. LUNGS: Breath sounds decreased. HEART: Rate and Rhythm are regular. ABDOMEN: Soft, nontender. EXTREMITITES: No edema. Objective - Vital Signs Vital signs: Vital Signs Temp 98.3 F 03/16/20 14:00 Pulse 82 03/16/20 14:00 Resp 24 03/16/20 14:00 BP 122/68 03/16/20 14:00 Pulse Ox 95 03/16/20 14:00 Intake & Output 03/15/20 03/16/20 03/16/20 18:59 06:59 18:59 Intake Total 480 Output Total 1325 Balance 480 -1325 Intake: Oral 480 Output: Urine 1325 Other: Voiding Method Incontinent Incontinent # Voids 3 - Labs CBC & Chem 7: 03/13/20 06:15 03/16/20 05:37 Labs: Abnormal Lab Results - Last 24 Hours (Table) 03/16/20 Range/Units 05:37 BUN 32.0 H (9.0-27.0) mg/dL BUN/Creatinine Ratio 45.71 H (12.00-20.00) Ratio Calcium 8.0 L (8.7-10.3) mg/dL Microbiology - Last 24 Hours (Table) 03/11/20 13:39 Blood Culture - Preliminary Blood No Growth after 96 hours Assessment and Plan Plan: Assessment: 1. Acute kidney injury mostly prerenal secondary to hypovolemia improving with IV hydration. Creatinine was 2.3 on admission; now back to baseline. 2. Diarrhea likely related to COVID 19 infection. Small bilateral effusions noted on CTA. 3. COVID 19 infection maintained on steroids and zinc. Also on Remdesivir. 4. Hypokalemia from poor intake. Magnesium normal. 5. Metabolic acidosis secondary to acute kidney injury, GI losses and IV fluids. Maintained on oral bicarbonate. Better. 6. Benign hypertension. Better controlled today. Plan: Remains off IV fluids. Replace potassium and magnesium. Encouraged po intake.
[2020-03-16] MEDS: MAGNESIUM SULFATE-D5W PMX 1 GM in DEXTROSE/WATER 1 100ML.BAG IVPB SCH ×2 (15:40→17:31)
--- NOTE | 2020-03-16 16:05 | P.PN ---
Subjective 70-year-old male came in with complaints of diarrhea. Patient was having several episodes of diarrhea patient had was having generalized body aches fatigue. Patient is found to have Covid 19 which was diagnosed the 10th of this month. Patient was having these symptoms for about a week. Patient did have nausea vomiting as well. Patient has not been eating or drinking since the symptoms and patient is found to be in acute renal failure. Patient was really doesn't have any fever. Patient denied any shortness of breath is having cough. Patient had a chest x-ray which showed bilateral pneumonia which is consistent with Covid 19. Patient denied any UTI-like symptoms but the because of mildly abnormal urine patient was given a dose of Rocephin in ER. 03/12/2020 Patient is seen and evaluated in follow-up today and continues to have multiple episodes of diarrhea and has been incontinent of stool. Patient continues to have some generalized body aches along with decreased appetite and general malaise. Patient is Covid 19 positive and currently being followed by infectious disease. Nephrology following as well for acute renal failure although has improved at this time. Patient is currently maintained on oral Zithromax along with dexamethasone and subcutaneous Lovenox zinc supplements. Nephrology was consulted and following for acute renal failure and sodium bicarbonate tablets have been added. Current sodium is 141 with a BUN of 27 and creatinine of 1.3. 03/13/2020 Patient is seen in follow-up today and respiratory status has worsened and is currently maintained on 4-5 L via nasal cannula with 92% saturation. Patient's blood pressure is also continue to be elevated and lisinopril was resumed. IV fluids discontinued per nephrology. Creatinine continues to improve and is currently 0.9. Sodium is 142, and repeat potassium is 4.0. Patient only had one episode of diarrhea last night and is maintained on Questran at this time. Patient also continues to have poor appetite. Infectious disease is following a nd patient completed a course of Zithromax and is currently maintained on dexamethasone, Lovenox, zinc supplements, and Remdesivir was initiated today. Will repeat labs and continue to monitor closely. Droplet isolation precautions maintained. Currently patient denies any chest pain or palpitations. Patient is afebrile. No reports of nausea or vomiting and patient is tolerating diet. 03/14/2020 Patient is seen and evaluated in follow-up and continues to have respiratory distress and increasing shortness of breath requiring nonrebreather and high flow oxygen at 15 L. A chest x-ray was done showing diffuse bilateral airspace disease is stable and to correlate for diffuse pneumonia although pulmonary edema is not excluded. A chest CTA was ordered by Dr. Jackie desouza which showed small bilateral pleural effusions and areas of pneumonitis and atypical pneumonia. Infectious disease is also following and patient is maintained on Remdesivir, Lovenox, and dexamethasone and will continue at this time. 03/15/2020 Patient is seen in follow-up and remains on high flow oxygen for increasing shortness of breath. Patient has been weaned down to 10 L high flow. Patient states he is having some nausea and abdominal discomfort today. Zofran ordered. Infectious disease and pulmonary following and will continue on current medication regimen. Patient is in isolation for Covid 19 infection. Patient states that his diarrhea has resolved and is refusing Questran at this time. PT/OT following as patient continues to be quite weak and not ambulating and would benefit from rehab once discharged. social work consulted as patient may need assistance with discharge planning needs or possibility of ECF rehab placement. Potassium today is 3.4 and will be replaced. Magnesium is 1.8 and current sodium is 141. Will repeat a.m. labs. 03/16/2020 Patient is presently 10 L of oxygen better today compared to yesterday patient was on 15 L yesterday Review of systems: Constitutional: Reports generalized weakness, and fatigue Cardiovascular: No reports of chest pain or palpitations Respiratory: Reports shortness of breath and cough GI: Reports nausea with no reports of vomiting or diarrhea : No reports of dysuria or retention Neurovascular: reports of weakness with no reports of numbness All medications have been reviewed Objective - Vital Signs Vital signs: Vital Signs Temp 98.3 F 03/16/20 14:00 Pulse 82 03/16/20 14:00 Resp 24 03/16/20 14:00 BP 122/68 03/16/20 14:00 Pulse Ox 95 03/16/20 14:00 Intake & Output 03/15/20 03/16/20 03/16/20 18:59 06:59 18:59 Intake Total 480 Output Total 1325 Balance 480 -1325 Intake: Oral 480 Output: Urine 1325 Other: Voiding Method Incontinent Incontinent # Voids 3 - Exam GENERAL: The patient is alert and oriented x3, in mild respiratory distress. W ell developed, well nourished. HEENT: Pupils are round and equally reacting to light. EOMI. No scleral icterus. No conjunctival pallor. Normocephalic, atraumatic. No pharyngeal erythema. No thyromegaly. CARDIOVASCULAR: S1 and S2 present. No murmurs, rubs, or gallops. PULMONARY: Breath sounds diminished bilaterally with no wheezing or rhonchi noted ABDOMEN: Soft, nontender, nondistended, normoactive bowel sounds. No palpable organomegaly. MUSCULOSKELETAL: No joint swelling or deformity. EXTREMITIES: No cyanosis, clubbing, or pedal edema. NEUROLOGICAL: Gross neurological examination did not reveal any focal deficits. Generalized weakness SKIN: No rashes. Note: Because of COVID 19 isolation, some of the history and physical exam findings are indirect and obtained from nursing staff, and other physician examinations to avoid unnecessary contact with the patient. - Labs CBC & Chem 7: 03/13/20 06:15 03/16/20 05:37 Labs: Abnormal Lab Results - Last 24 Hours (Table) 03/16/20 Range/Units 05:37 BUN 32.0 H (9.0-27.0) mg/dL BUN/Creatinine Ratio 45.71 H (12.00-20.00) Ratio Calcium 8.0 L (8.7-10.3) mg/dL Microbiology - Last 24 Hours (Table) 03/11/20 13:39 Blood Culture - Preliminary Blood No Growth after 120 hours Assessment and Plan Plan: -Sepsis: Secondary to Covid 19 pneumonia. Present on admission Patient is maintained on Decadron along with [facility] by tomorrow. Infectious disease following. -Pneumonitis/pneumonia secondary to covid 19 -Acute hypoxic respiratory failure secondary to Covid 19 pneumonia, pulmonary consulted -Diarrhea most likely secondary to Covid 19, improving -Acute renal failure mostly prerenal azotemia from nausea vomiting, diarrhea: Improving. Patient is maintained on sodium bicarb tablets have been added. Nephrology following. Current creatinine is 0.9. Will repeat a.m. labs -CAD -Severe TIA in the past with some right-sided deficit -Gait dysfunction -Hyperlipidemia -Hypertension, home medications resumed, by mouth hydralazine added per nephrology -GI prophylaxis -DVT prophylaxis Plan: Continue with current medications and will continue to monitor vital signs and labs closely. Nephrology and infectious disease are following. Chest x-ray and CTA as mentioned previously with no reports of pneumothorax or PE on the CT. Remdesivir initiated.
[2020-03-16] MEDS: TEMAZEPAM 15 MG CAP PO PRN (22:46)
--- NOTE | 2020-03-16 23:27 | PN ---
PROGRESS NOTE DATE OF SERVICE: 03/16/2020 REASON FOR FOLLOWUP: Acute COVID-19 pneumonia. INTERVAL HISTORY: Patient is currently afebrile. Patient is breathing slightly comfortably. Denies having any chest pain. Cough has decreased intensity. No nausea. No abdominal pain or diarrhea. Has been complaining of not able to sleep and wanting a sleeping pill. PHYSICAL EXAMINATION: Blood pressure 121/69, pulse of 85, temperature is 98.9, he is 99% on 6 L nasal cannula. General description is an elderly male lying in bed in no distress. Respiratory system: Unlabored breathing, decreased intensity of breath sounds. No wheeze. HEART: S1, S2. Regular rate and rhythm. Abdomen soft, no tenderness. LABS: BUN of 30, creatinine 0.7. DIAGNOSTIC IMPRESSION/PLAN: Patient with acute COVID-19 pneumonia in this patient who has shown clinical response to the Remdesivir, Lovenox and dexamethasone. To continue and monitor clinical course closely. Continue supportive care. MMODL / IJN: [id number] /
[2020-03-17] MEDS: BICALUTAMIDE 50 MG TAB PO SCH (08:39)
[2020-03-17] MEDS: ENOXAPARIN 40 MG/0.4 ML SYRINGE SQ SCH (08:39)
[2020-03-17] MEDS: hydrALAZINE HCL 50 MG TAB PO SCH ×3 (08:39→21:40)
[2020-03-17] MEDS: TAMSULOSIN 0.4 MG CAP.ER.24H PO SCH (08:40)
[2020-03-17] MEDS: ATORVASTATIN 20 MG TAB PO SCH (08:40)
[2020-03-17] MEDS: ZINC SULFATE 220 MG CAP PO SCH (08:40)
[2020-03-17] MEDS: dexAMETHasone 2 MG TAB PO SCH (08:41)
[2020-03-17] MEDS: CLOPIDOGREL 75 MG TAB PO SCH (08:41)
[2020-03-17] MEDS: ASPIRIN 81 MG PO SCH (08:41)
[2020-03-17] MEDS: lisinopriL 20 MG TAB PO SCH (08:41)
[2020-03-17] MEDS: FINASTERIDE 5 MG TAB PO SCH (08:42)
[2020-03-17] MEDS: NON FORMULARY DRUG (Mirabegron [Myrbetriq] 50 MG Tab.Er.24h) PO SCH (08:43)
[2020-03-17] MEDS: SODIUM BICARBONATE TAB 650 MG TAB PO SCH ×2 (08:45→21:40)
[2020-03-17 10:06] LABS: African American GFR (CKD) 110.8 (60.0-200.0); Anion Gap 6.7 mmol/L (4.00-12.00); BUN/Creat Ratio 51.67 Ratio (12.00-20.00); Calcium 7.9 mg/dL (8.7-10.3); Carbon Dioxide 25.3 mmol/L (21.6-31.8); Magnesium 1.8 mg/dL (1.5-2.4); Non-African American GFR(CKD) 95.6 (60.0-200.0); Potassium 3.9 mmol/L (3.5-5.5)
--- NOTE | 2020-03-17 12:02 | P.PN ---
"Subjective 70-year-old male came in with complaints of diarrhea. Patient was having several episodes of diarrhea patient had was having generalized body aches fatigue. Patient is found to have Covid 19 which was diagnosed the 10th of this month. Patient was having these symptoms for about a week. Patient did have nausea vomiting as well. Patient has not been eating or drinking since the symptoms and patient is found to be in acute renal failure. Patient was really doesn't have any fever. Patient denied any shortness of breath is having cough. Patient had a chest x-ray which showed bilateral pneumonia which is consistent with Covid 19. Patient denied any UTI-like symptoms but the because of mildly abnormal urine patient was given a dose of Rocephin in ER. 03/12/2020 Patient is seen and evaluated in follow-up today and continues to have multiple episodes of diarrhea and has been incontinent of stool. Patient continues to have some generalized body aches along with decreased appetite and general malaise. Patient is Covid 19 positive and currently being followed by infectious disease. Nephrology following as well for acute renal failure although has improved at this time. Patient is currently maintained on oral Zithromax along with dexamethasone and subcutaneous Lovenox zinc supplements. Nephrology was consulted and following for acute renal failure and sodium bicarbonate tablets have been added. Current sodium is 141 with a BUN of 27 and creatinine of 1.3. 03/13/2020 Patient is seen in follow-up today and respiratory status has worsened and is currently maintained on 4-5 L via nasal cannula with 92% saturation. Patient's blood pressure is also continue to be elevated and lisinopril was resumed. IV fluids discontinued per nephrology. Creatinine continues to improve and is currently 0.9. Sodium is 142, and repeat potassium is 4.0. Patient only had one episode of diarrhea last night and is maintained on Questran at this time. Patient also continues to have poor appetite. Infectious disease is following a nd patient completed a course of Zithromax and is currently maintained on dexamethasone, Lovenox, zinc supplements, and Remdesivir was initiated today. Will repeat labs and continue to monitor closely. Droplet isolation precautions maintained. Currently patient denies any chest pain or palpitations. Patient is afebrile. No reports of nausea or vomiting and patient is tolerating diet. 03/14/2020 Patient is seen and evaluated in follow-up and continues to have respiratory distress and increasing shortness of breath requiring nonrebreather and high flow oxygen at 15 L. A chest x-ray was done showing diffuse bilateral airspace disease is stable and to correlate for diffuse pneumonia although pulmonary edema is not excluded. A chest CTA was ordered by Dr. Jackie desouza which showed small bilateral pleural effusions and areas of pneumonitis and atypical pneumonia. Infectious disease is also following and patient is maintained on Remdesivir, Lovenox, and dexamethasone and will continue at this time. 03/15/2020 Patient is seen in follow-up and remains on high flow oxygen for increasing shortness of breath. Patient has been weaned down to 10 L high flow. Patient states he is having some nausea and abdominal discomfort today. Zofran ordered. Infectious disease and pulmonary following and will continue on current medication regimen. Patient is in isolation for Covid 19 infection. Patient states that his diarrhea has resolved and is refusing Questran at this time. PT/OT following as patient continues to be quite weak and not ambulating and would benefit from rehab once discharged. social work consulted as patient may need assistance with discharge planning needs or possibility of ECF rehab placement. Potassium today is 3.4 and will be replaced. Magnesium is 1.8 and current sodium is 141. Will repeat a.m. labs. 03/16/2020 Patient is presently 10 L of oxygen better today compared to yesterday patient was on 15 L yesterday 03/17/2020 Patient doesn't have any diarrhea kidney function improved, patient is presently on 8 L of oxygen. Review of systems: Constitutional: Reports generalized weakness, and fatigue Cardiovascular: No reports of chest pain or palpitations Respiratory: Reports shortness of breath and cough GI: Reports nausea with no reports of vomiting or diarrhea : No reports of dysuria or retention Neurovascular: reports of weakness with no reports of numbness All medications have been reviewed Objective - Vital Signs Vital signs: Vital Signs Temp 97.9 F 03/17/20 10:00 Pulse 90 03/17/20 10:00 Resp 17 03/17/20 10:00 BP 137/62 03/17/20 10:00 Pulse Ox 88 L 03/17/20 10:00 Intake & Output 03/16/20 03/17/20 03/17/20 18:59 06:59 18:59 Intake Total 250 Output Total 450 150 Balance -450 100 Intake: Oral 250 Output: Urine 450 150 Other: Voiding Method Incontinent - Exam GENERAL: The patient is alert and oriented x3, in mild respiratory distress. Well developed, well nourished. HEENT: Pupils are round and equally reacting to light. EOMI. No scleral icterus. No conjunctival pallor. Normocephalic, atraumatic. No pharyngeal erythema. No thyromegaly. CARDIOVASCULAR: S1 and S2 present. No murmurs, rubs, or gallops. PULMONARY: Breath sounds diminished bilaterally with no wheezing or rhonchi noted ABDOMEN: Soft, nontender, nondistended, normoactive bowel sounds. No palpable organomegaly. MUSCULOSKELETAL: No joint swelling or deformity. EXTREMITIES: No cyanosis, clubbing, or pedal edema. NEUROLOGICAL: Gross neurological examination did not reveal any focal deficits. Generalized weakness SKIN: No rashes. Note: Because of COVID 19 isolation, some of the history and physical exam findings are indirect and obtained from nursing staff, and other physician examinations to avoid unnecessary contact with the patient. - Labs CBC & Chem 7: 03/13/20 06:15 03/17/20 05:35 Labs: Abnormal Lab Results - Last 24 Hours (Table) 03/17/20 Range/Units 05:35 BUN 31.0 H (9.0-27.0) mg/dL BUN/Creatinine Ratio 51.67 H (12.00-20.00) Ratio Glucose 114 H (70-110) mg/dL Calcium 7.9 L (8.7-10.3) mg/dL Microbiology - Last 24 Hours (Table) 03/11/20 13:39 Blood Culture - Preliminary Blood No Growth after 120 hours Assessment and Plan Plan: -Sepsis: Secondary to Covid 19 pneumonia. Present on admission Patient is maintained on Decadron along. Infectious disease following. -Pneumonitis/pneumonia secondary to covid 19 -Acute hypoxic respiratory failure secondary to Covid 19 pneumonia, pulmonary consulted -Diarrhea most likely secondary to Covid 19, improving -Acute renal failure mostly prerenal azotemia from nausea vomiting, diarrhea: Improving. Patient is maintained on sodium bicarb tablets have been added. | Patient's creatinine normalized. -CAD -Severe TIA in the past with some right-sided deficit -Gait dysfunction -Hyperlipidemia -Hypertension, -GI prophylaxis -DVT prophylaxis Plan: Continue with current medications and will continue to monitor vital signs and labs closely. Nephrology and infectious disease are following. Chest x-ray and CTA as mentioned previously with no reports of pneumothorax or PE on the CT."
[2020-03-17] MEDS: REMDESIVIR (EUA) 100 MG in SODIUM CHLORIDE 0.9% 250 ML IVPB SCH (12:29)
--- NOTE | 2020-03-17 13:07 | P.PN ---
Subjective Patient is seen in follow for acute kidney injury. Renal function back to baseline. Denies vomiting or diarrhea. Currently on 8 L high flow nasal cannula. Blood pressure controlled. No chest pain or shortness of breath. Vital signs are stable. General: The patient appeared well nourished and normally developed. HEENT: Head exam is unremarkable. Neck is without jugular venous distension. LUNGS: Breath sounds decreased. HEART: Rate and Rhythm are regular. ABDOMEN: Soft, nontender. EXTREMITITES: No edema. Objective - Vital Signs Vital signs: Vital Signs Temp 97.9 F 03/17/20 10:00 Pulse 90 03/17/20 10:00 Resp 17 03/17/20 10:00 BP 137/62 03/17/20 10:00 Pulse Ox 88 L 03/17/20 10:00 Intake & Output 03/16/20 03/17/20 03/17/20 18:59 06:59 18:59 Intake Total 250 Output Total 450 150 Balance -450 100 Intake: Oral 250 Output: Urine 450 150 Other: Voiding Method Incontinent - Labs CBC & Chem 7: 03/13/20 06:15 03/17/20 05:35 Labs: Abnormal Lab Results - Last 24 Hours (Table) 03/17/20 Range/Units 05:35 BUN 31.0 H (9.0-27.0) mg/dL BUN/Creatinine Ratio 51.67 H (12.00-20.00) Ratio Glucose 114 H (70-110) mg/dL Calcium 7.9 L (8.7-10.3) mg/dL Microbiology - Last 24 Hours (Table) 03/11/20 13:39 Blood Culture - Preliminary Blood No Growth after 120 hours Assessment and Plan Plan: Assessment: 1. Acute kidney injury mostly prerenal secondary to hypovolemia improving with IV hydration. Creatinine was 2.3 on admission; now back to baseline. 2. Diarrhea likely related to COVID 19 infection. Small bilateral effusions noted on CTA. 3. COVID 19 infection maintained on steroids and zinc. Also on Remdesivir. 4. Hypokalemia from poor intake. Magnesium normal. Better postplacement. 5. Metabolic acidosis secondary to acute kidney injury, GI losses and IV fluids. Maintained on oral bicarbonate. Better. 6. Benign hypertension. Better controlled today. Plan: Remains off IV fluids. Encouraged po intake. Continue to monitor renal function and urine output.
[2020-03-17 14:05] VITALS: BMI 29.4
--- NOTE | 2020-03-17 20:19 | P.PN ---
Subjective Progress Note Date: 03/17/20 Principal diagnosis: Small pleural effusion bilateral with fluid overload Sepsis Acute hypoxic respiratory failure Acute kidney injury likely prerenal improved and normalized with fluid resuscitation Covid in 19 pneumonia Hypertension hypertensive cardiovascular disease History of coronary artery disease Dyslipidemia hypertension hypertensive cardiovascular disease TIA 03/17/2020, patient seen eval reexamined during the rounds labs reviewed medications reviewed, continued on oxygen saturation is stable on 8 L, cough is improved shortness of breath however especially during exertion continue to be present, 03/16/2020, patient seen eval examined during the rounds labs reviewed medications reviewed, patient remains on high flow oxygen, oxygen saturation is mid 90s remains short of breath but severity has improved, patient remains on therapy for Covid 19 pneumonia cough congestion is better but shortness of breath is there, 03/15/2020, patient seen eval examined during the rounds labs reviewed medications reviewed care plan discussed with the staff at length, cough congestion is slightly improved patient is down to 10 L high flow oxygen, saturation is 95-98%, respiratory status much improved today compared to yesterday, off of IV fluids, computed tomography scan of the chest reviewed no pulmonary embolism is present, interstitial edema and bilateral small pleural effusion noted consistent with fluid overload along with bilateral infiltrates of covid-19 with pneumonia This is a 79-year-old male who was seen eval reexamined on medical floor patient has a two-week history of ongoing progressive shortness of breath, patient also has problems associated with diarrhea intermittently developed aches and pains and fatigue, patient was diagnosis: 19 pneumonia and a half weeks ago, on arrival his x-ray consistent with bilateral infiltrate consistent with: 19 pneumonia, patient has been on IV REM doesn't wear as well as x-ray drawn, oxygen requirement however went up from 2 L 48 hours 03/17/2020, patient seen eval examined during the rounds labs reviewed medications reviewed, respiratory status remains stable, wheezing have resolved now cuff congestion improved no hemoptysis present, patient is being planned for discharge on oral antibiotics, Objective - Vital Signs Vital signs: Vital Signs Temp 97.6 F 03/17/20 18:00 Pulse 95 03/17/20 18:00 Resp 17 03/17/20 19:40 BP 145/64 03/17/20 18:00 Pulse Ox 91 L 03/17/20 18:00 Intake & Output 03/17/20 03/17/20 03/18/20 06:59 18:59 06:59 Intake Total 250 Output Total 150 700 Balance 100 -700 Weight 92.986 kg Intake: Oral 250 Output: Urine 150 700 Other: Voiding Method Incontinent Incontinent - Exam - Constitutional General appearance: average body habitus, cooperative, disheveled, morbidly obese - EENT Eyes: EOMI, PERRLA Ears: bilateral: normal - Neck Neck: normal ROM Carotids: bilateral: upstroke normal - Respiratory Respiratory: bilateral: diminished - Cardiovascular Rhythm: regular Heart sounds: normal: S1, S2 - Neurologic Neurologic: CNII-XII intact - Musculoskeletal Musculoskeletal: gait normal, generalized weakness, strength equal bilaterally - Psychiatric Psychiatric: A&O x's 3, appropriate affect, intact judgment & insight - Labs CBC & Chem 7: 03/13/20 06:15 03/17/20 05:35 Labs: Abnormal Lab Results - Last 24 Hours (Table) 03/17/20 Range/Units 05:35 BUN 31.0 H (9.0-27.0) mg/dL BUN/Creatinine Ratio 51.67 H (12.00-20.00) Ratio Glucose 114 H (70-110) mg/dL Calcium 7.9 L (8.7-10.3) mg/dL Microbiology - Last 24 Hours (Table) 03/11/20 13:39 Blood Culture - Final Blood No Growth after 144 hours Assessment and Plan Assessment: Bilateral pleural effusion and fluid overload appears to be reason along with Covid 19 pneumonia for worsening of acute respiratory failure Sepsis Acute hypoxic respiratory failure Acute kidney injury likely prerenal improved and normalized with fluid resuscitation Covid 19 pneumonia Hypertension hypertensive cardiovascular disease History of coronary artery disease Dyslipidemia hypertension hypertensive cardiovascular disease TIA Plan: Computed tomography scan of the chest reviewed continue auto diuresis titrated oxygen down as tolerated to keep saturation over 90-92% Worsening hypoxemia most likely related to Covid 19 pneumonia and respiratory failure associated however other etiologies like fluid overload appears to be less likely Continue Decadron, Remdesivir , titrated oxygen as tolerated anticipate should be able to bring down in next 24 hours 2-4 L nasal cannula Time with Patient: Greater than 30
[2020-03-17] MEDS: TEMAZEPAM 15 MG CAP PO PRN (21:41)
--- NOTE | 2020-03-18 01:51 | PN ---
PROGRESS NOTE DATE OF SERVICE: 03/17/2020 REASON FOR FOLLOWUP: Acute COVID-19 pneumonia. INTERVAL HISTORY: The patient is currently afebrile. The patient is breathing more comfortably. The patient denies having any chest pain. Minimal cough. No nausea, no vomiting. No abdominal pain or diarrhea. PHYSICAL EXAMINATION: Blood pressure 145/64, pulse of 95, temperature 97.6. He is 91% on 10 L nasal cannula. General description is an elderly male up in the bed in no distress. RESPIRATORY SYSTEM: Unlabored breathing, decreased intensity of breath sounds. No wheeze. HEART: S1, S2. Regular rate and rhythm. ABDOMEN: Soft. No tenderness. LABS: BUN of 31, creatinine 0.6. Blood culture has been negative. DIAGNOSTIC IMPRESSION AND PLAN: Patient with acute COVID-19 pneumonia in this patient currently being treated with dexamethasone, Lovenox, and has completed his 5-day course of remdesivir to continue along with respiratory support and monitor his clinical course closely. MMODL / IJN: [id number] /
[2020-03-18] MEDS: ASPIRIN 81 MG PO SCH (08:51)
[2020-03-18] MEDS: dexAMETHasone 2 MG TAB PO SCH (08:51)
[2020-03-18] MEDS: ENOXAPARIN 40 MG/0.4 ML SYRINGE SQ SCH (08:51)
[2020-03-18] MEDS: ZINC SULFATE 220 MG CAP PO SCH (08:52)
[2020-03-18] MEDS: SODIUM BICARBONATE TAB 650 MG TAB PO SCH ×2 (08:52→21:06)
[2020-03-18] MEDS: BICALUTAMIDE 50 MG TAB PO SCH (08:53)
[2020-03-18] MEDS: TAMSULOSIN 0.4 MG CAP.ER.24H PO SCH (08:53)
[2020-03-18] MEDS: CLOPIDOGREL 75 MG TAB PO SCH (08:54)
[2020-03-18] MEDS: ATORVASTATIN 20 MG TAB PO SCH (08:54)
[2020-03-18] MEDS: FINASTERIDE 5 MG TAB PO SCH (08:54)
[2020-03-18] MEDS: lisinopriL 20 MG TAB PO SCH (08:54)
[2020-03-18] MEDS: hydrALAZINE HCL 50 MG TAB PO SCH ×3 (08:54→21:06)
[2020-03-18] MEDS: NON FORMULARY DRUG (Mirabegron [Myrbetriq] 50 MG Tab.Er.24h) PO SCH (08:55)
[2020-03-18 10:38] LABS: African American GFR (CKD) >90 (>60 ml/min/1.73 sqM); Anion Gap 2 mmol/L; Blood Urea Nitrogen 24 mg/dL (9-20); Calcium 7.6 mg/dL (8.4-10.2); Carbon Dioxide 26 mmol/L (22-30); Chloride 107 mmol/L (98-107); Glucose 119 mg/dL (74-99); Non-African American GFR(CKD) 90 (>60 ml/min/1.73 sqM); Potassium 3.5 mmol/L (3.5-5.1); Sodium 135 mmol/L (137-145)
--- NOTE | 2020-03-18 10:58 | P.PN ---
Subjective Progress Note Date: 03/18/20 Principal diagnosis: Small pleural effusion bilateral with fluid overload Sepsis Acute hypoxic respiratory failure Acute kidney injury likely prerenal improved and normalized with fluid resuscitation Covid in 19 pneumonia Hypertension hypertensive cardiovascular disease History of coronary artery disease Dyslipidemia hypertension hypertensive cardiovascular disease TIA 03/18/2020, patient seen eval examined during the rounds labs reviewed medications reviewed, denies any chest pain shortness of breath slightly better able to bring down the oxygen from 10 L high flow to a liter now and sats are mid to low 90s, remains tachypneic, denies any chest pain cough or sputum production 03/17/2020, patient seen eval reexamined during the rounds labs reviewed medications reviewed, continued on oxygen saturation is stable on 8 L, cough is improved shortness of breath however especially during exertion continue to be present, 03/16/2020, patient seen eval examined during the rounds labs reviewed medications reviewed, patient remains on high flow oxygen, oxygen saturation is mid 90s remains short of breath but severity has improved, patient remains on therapy for Covid 19 pneumonia cough congestion is better but shortness of breath is there, 03/15/2020, patient seen eval examined during the rounds labs reviewed medications reviewed care plan discussed with the staff at length, cough congestion is slightly improved patient is down to 10 L high flow oxygen, sat uration is 95-98%, respiratory status much improved today compared to yesterday, off of IV fluids, computed tomography scan of the chest reviewed no pulmonary embolism is present, interstitial edema and bilateral small pleural effusion noted consistent with fluid overload along with bilateral infiltrates of covid- 19 with pneumonia This is a 79-year-old male who was seen eval reexamined on medical floor patient has a two-week history of ongoing progressive shortness of breath, patient also has problems associated with diarrhea intermittently developed aches and pains and fatigue, patient was diagnosis: 19 pneumonia and a half weeks ago, on arrival his x-ray consistent with bilateral infiltrate consistent with: 19 pneumonia, patient has been on IV REM doesn't wear as well as x-ray drawn, ox ygen requirement however went up from 2 L 48 hours 03/17/2020, patient seen eval examined during the rounds labs reviewed medications reviewed, respiratory status remains stable, wheezing have resolved now cuff congestion improved no hemoptysis present, patient is being planned for discharge on oral antibiotics, Objective - Vital Signs Vital signs: Vital Signs Temp 97.7 F 03/18/20 09:53 Pulse 80 03/18/20 09:53 Resp 16 03/18/20 09:53 BP 142/64 03/18/20 09:53 Pulse Ox 95 03/18/20 09:53 Intake & Output 03/17/20 03/18/20 03/18/20 18:59 06:59 18:59 Output Total 700 450 Balance -700 -450 Weight 92.986 kg Output: Urine 700 450 Other: Voiding Method Incontinent # Voids 1 - Exam - Constitutional General appearance: average body habitus, cooperative, disheveled, morbidly obese - EENT Eyes: EOMI, PERRLA Ears: bilateral: normal - Neck Neck: normal ROM Carotids: bilateral: upstroke normal - Respiratory Respiratory: bilateral: diminished - Cardiovascular Rhythm: regular Heart sounds: normal: S1, S2 - Neurologic Neurologic: CNII-XII intact - Musculoskeletal Musculoskeletal: gait normal, generalized weakness, strength equal bilaterally - Psychiatric Psychiatric: A&O x's 3, appropriate affect, intact judgment & insight - Labs CBC & Chem 7: 03/13/20 06:15 03/18/20 09:32 Labs: Abnormal Lab Results - Last 24 Hours (Table) 03/18/20 Range/Units 09:32 Sodium 135 L (137-145) mmol/L BUN 24 H (9-20) mg/dL Glucose 119 H (74-99) mg/dL Calcium 7.6 L (8.4-10.2) mg/dL Microbiology - Last 24 Hours (Table) 03/11/20 13:39 Blood Culture - Final Blood No Growth after 144 hours Assessment and Plan Assessment: Covid 19 pneumonia Sepsis Acute hypoxic respiratory failure Acute kidney injury likely prerenal improved and normalized with fluid resuscitation Bilateral pleural effusion and fluid overload appears to be reason along with Covid 19 pneumonia for worsening of acute respiratory failure, observe with auto diuresis Hypertension hypertensive cardiovascular disease History of coronary artery disease Dyslipidemia hypertension hypertensive cardiovascular disease TIA Plan: Continue to titrate oxygen down 1-2 L every 24 hours slowly and cautiously Computed tomography scan of the chest reviewed continue auto diuresis titrated oxygen down as tolerated to keep saturation over 90-92% Worsening hypoxemia most likely related to Covid 19 pneumonia and respiratory failure associated however other etiologies like fluid overload appears to be less likely, continue auto diuresis status post IV Remdesivir Continue Decadron, Further recommendations pending plan of care as per clinical response of the patient Time with Patient: Greater than 30
--- NOTE | 2020-03-18 14:33 | P.PN ---
Subjective Progress Note Date: 03/18/20 Patient is a pleasant 70-year-old male came in with complaints of diarrhea. Patient was having several episodes of diarrhea patient had was having generalized body aches fatigue. Patient is found to have Covid 19 which was diagnosed the of this month. Patient was having these symptoms for about a week. Patient did have nausea vomiting as well. Patient has not been eating or drinking since the symptoms and patient is found to be in acute renal failure. Patient was really doesn't have any fever. Patient denied any shortness of breath is having cough. Patient had a chest x-ray which showed bilateral pneumonia which is consistent with Covid 19. Patient denied any UTI-like symptoms but the because of mildly abnormal urine patient was given a dose of Rocephin in ER. 03/12/2020 Patient is seen and evaluated in follow-up today and continues to have multiple episodes of diarrhea and has been incontinent of stool. Patient continues to have some generalized body aches along with decreased appetite and general malaise. Patient is Covid 19 positive and currently being followed by [facility]. Nephrology following as well for acute renal failure although has improved at this time. Patient is currently maintained on oral Zithromax along with dexamethasone and subcutaneous Lovenox zinc supplements. Nephrology was consulted and following for acute renal failure and sodium bicarbonate tablets have been added. Current sodium is 141 with a BUN of 27 and creatinine of 1.3. Review of systems: Constitutional: Reports fatigue, with no reports of fever, or chills Cardiovascular: No reports of chest pain or palpitations Respiratory: Reports mild shortness of breath GI: No reports of nausea, vomiting. Reports multiple episodes of diarrhea : No reports of dysuria or retention Neurovascular: Reports weakness All medications have been reviewed 03/13/2020 Patient is seen in follow-up today and respiratory status has worsened and is currently maintained on 4-5 L via nasal cannula with 92% saturation. Patient's blood pressure is also continue to be elevated and lisinopril was resumed. IV fluids discontinued per nephrology. Creatinine continues to improve and is currently 0.9. Sodium is 142, and repeat potassium is 4.0. Patient only had one episode of diarrhea last night and is maintained on Questran at this time. Patient also continues to have poor appetite. Infectious disease is following and patient completed a course of Zithromax and is currently maintained on dexamethasone, Lovenox, zinc supplements, and Remdesivir was initiated today. Will repeat labs and continue to monitor closely. Droplet isolation precautions maintained. Currently patient denies any chest pain or palpitations. Patient is afebrile. No reports of nausea or vomiting and patient is tolerating diet. 03/14/2020 Patient is seen and evaluated in follow-up and continues to have respiratory distress and increasing shortness of breath requiring nonrebreather and high kathy w oxygen at 15 L. A chest x-ray was done showing diffuse bilateral airspace disease is stable and to correlate for diffuse pneumonia although pulmonary edema is not excluded. A chest CTA was ordered by Dr. Jackie desouza which showed small bilateral pleural effusions and areas of pneumonitis and atypical pneumonia. Infectious disease is also following and patient is maintained on Remdesivir, Lovenox, and dexamethasone and will continue at this time. Review of systems: Constitutional: reports fatigue, no reports of fever, or chills Cardiovascular: No reports of chest pain or palpitations Respiratory: Reports worsening shortness of breath and cough GI: No reports of nausea, vomiting, or diarrhea : No reports of dysuria or retention Neurovascular: Reports weakness with no reports of numbness All medications have been reviewed 03/15/2020 Patient is seen in follow-up and remains on high flow oxygen for increasing shortness of breath. Patient has been weaned down to 10 L high flow. Patient states he is having some nausea and abdominal discomfort today. Zofran ordered. Infectious disease and pulmonary following and will continue on current medication regimen. Patient is in isolation for Covid 19 infection. Patient states that his diarrhea has resolved and is refusing Questran at this time. PT/OT following as patient continues to be quite weak and not ambulating and wou ld benefit from rehab once discharged. social work consulted as patient may need assistance with discharge planning needs or possibility of ECF rehab placement. Potassium today is 3.4 and will be replaced. Magnesium is 1.8 and current sodium is 141. Will repeat a.m. labs. Review of systems: Constitutional: Reports generalized weakness, and fatigue Cardiovascular: No reports of chest pain or palpitations Respiratory: Reports shortness of breath and cough GI: Reports nausea with no reports of vomiting or diarrhea : No reports of dysuria or retention Neurovascular: reports of weakness with no reports of numbness All medications have been reviewed 03/16/2020 Patient is presently 10 L of oxygen better today compared to yesterday patient was on 15 L yesterday 03/17/2020 Patient doesn't have any diarrhea kidney function improved, patient is presently on 8 L of oxygen. Review of systems: Constitutional: Reports generalized weakness, and fatigue Cardiovascular: No reports of chest pain or palpitations Respiratory: Reports shortness of breath and cough GI: Reports nausea with no reports of vomiting or diarrhea : No reports of dysuria or retention Neurovascular: reports of weakness with no reports of numbness All medications have been reviewed 03/18/2020 Patient is seen and evaluated in follow-up and continues on high flow via nasal cannula and is currently on 8 L. Discussed with nursing staff about continuing to wean patient off oxygen. Infectious disease and pulmonary following. Patient remains on dexamethasone along with ink and Lovenox and has completed Remdesivir. Nephrology also following as patient had elevated creatinine although is currently 0.71 today. Sodium is 135 and potassium is 3.5. Patient denies any nausea or vomiting and has been tolerating diet. Patient continues to have poor appetite although is eating with meals. Discussed with patient about discharge planning and patient states he will be going home once discharged. Patient does have caregivers that come to the home. Review of systems: Constitutional: Reports fatigue, fever, or chills Cardiovascular: No reports of chest pain or palpitations Respiratory: Reports intermittent shortness of breath and cough with slight improvement GI: No reports of nausea, vomiting, or diarrhea : No reports of dysuria or retention Neurovascular: reports generalized weakness All medications have been reviewed Objective - Vital Signs Vital signs: Vital Signs Temp 97.7 F 03/18/20 09:53 Pulse 80 03/18/20 09:53 Resp 16 03/18/20 09:53 BP 142/64 03/18/20 09:53 Pulse Ox 95 03/18/20 09:53 Intake & Output 03/17/20 03/18/20 03/18/20 18:59 06:59 18:59 Output Total 700 450 Balance -700 -450 Weight 92.986 kg Output: Urine 700 450 Other: Voiding Method Incontinent # Voids 1 - Exam GENERAL: The patient is alert and oriented x3, in no acute distress. Well developed, well nourished. HEENT: Pupils are round and equally reacting to light. EOMI. No scleral icterus. No conjunctival pallor. Normocephalic, atraumatic. No pharyngeal erythema. No thyromegaly. CARDIOVASCULAR: S1 and S2 present. No murmurs, rubs, or gallops. PULMONARY: Breath sounds diminished bilaterally with no wheezing or rhonchi noted ABDOMEN: Soft, nontender, nondistended, normoactive bowel sounds. No palpable organomegaly. MUSCULOSKELETAL: No joint swelling or deformity. EXTREMITIES: No cyanosis, clubbing, or pedal edema. NEUROLOGICAL: Gross neurological examination did not reveal any focal deficits. Diffusely weak SKIN: No rashes. - Labs CBC & Chem 7: 03/13/20 06:15 03/18/20 09:32 Labs: Abnormal Lab Results - Last 24 Hours (Table) 03/18/20 Range/Units 09:32 Sodium 135 L (137-145) mmol/L BUN 24 H (9-20) mg/dL Glucose 119 H (74-99) mg/dL Calcium 7.6 L (8.4-10.2) mg/dL Microbiology - Last 24 Hours (Table) 03/11/20 13:39 Blood Culture - Final Blood No Growth after 144 hours Assessment and Plan Assessment: -Sepsis: Secondary to Covid 19 pneumonia. Present on admission Patient is maintained on Decadron along with Lovenox. Remdesivir finished. Infectious disease following. -Pneumonitis/pneumonia secondary to covid 19 -Acute hypoxic respiratory failure secondary to Covid 19 pneumonia, pulmonary following -Diarrhea most likely secondary to Covid 19, improved -Acute renal failure mostly prerenal azotemia from nausea vomiting, diarrhea: Improved -CAD -Severe TIA in the past with some right-sided deficit -Gait dysfunction -Hyperlipidemia -Hypertension -GI prophylaxis -DVT prophylaxis Plan: Continue with current medications and will continue to monitor vital signs and labs closely. Nephrology, pulmonary, and infectious disease are following. Discussed with nursing staff about weaning off oxygen as patient is currently maintained on 8 L of high flow via nasal cannula. Increase activity as tolerated. Further recommendations to follow.
[2020-03-18] MEDS: ALBUTEROL HFA INHALER INHALATION PRN ×2 (15:53→20:07)
[2020-03-18] MEDS: TEMAZEPAM 15 MG CAP PO PRN (21:06)
--- NOTE | 2020-03-19 00:35 | PN ---
PROGRESS NOTE DATE OF SERVICE: 03/18/2020 REASON FOR FOLLOWUP: Acute COVID-19 pneumonia. INTERVAL HISTORY: The patient is currently afebrile. He is breathing slightly comfortably today. Still requiring 6 L nasal cannula. The patient denies having any chest pain. Minimal cough. No nausea, no vomiting. No abdominal pain or diarrhea. PHYSICAL EXAMINATION: Blood pressure 154/67, pulse of 79, temperature 98.4. He is 96% on 6 L nasal cannula. General description is an elderly male up in the chair in no distress. RESPIRATORY SYSTEM: Unlabored breathing, decreased breath sounds in the bases. No wheeze. HEART: S1, S2. Regular rate and rhythm. ABDOMEN: Soft, no tenderness. LABS: BUN of 24, creatinine 0.71. DIAGNOSTIC IMPRESSION AND PLAN: Patient with acute COVID-19 pneumonia in this patient seemed to have shown some clinical response. The patient has completed his 5-day course of remdesivir. Currently on Lovenox, dexamethasone, zinc, to continue and continue supportive care. MMODL / IJN: [id number] /
[2020-03-19] MEDS: ALBUTEROL HFA INHALER INHALATION PRN ×2 (08:28→12:53)
[2020-03-19] MEDS: dexAMETHasone 2 MG TAB PO SCH (08:49)
[2020-03-19] MEDS: ENOXAPARIN 40 MG/0.4 ML SYRINGE SQ SCH (08:49)
[2020-03-19] MEDS: ASPIRIN 81 MG PO SCH (08:50)
[2020-03-19] MEDS: SODIUM BICARBONATE TAB 650 MG TAB PO SCH ×2 (08:50→21:07)
[2020-03-19] MEDS: FINASTERIDE 5 MG TAB PO SCH (08:50)
[2020-03-19] MEDS: lisinopriL 20 MG TAB PO SCH (08:50)
[2020-03-19] MEDS: CLOPIDOGREL 75 MG TAB PO SCH (08:50)
[2020-03-19] MEDS: TAMSULOSIN 0.4 MG CAP.ER.24H PO SCH (08:50)
[2020-03-19] MEDS: BICALUTAMIDE 50 MG TAB PO SCH (08:50)
[2020-03-19] MEDS: ATORVASTATIN 20 MG TAB PO SCH (08:50)
[2020-03-19] MEDS: hydrALAZINE HCL 50 MG TAB PO SCH ×3 (08:50→21:06)
[2020-03-19] MEDS: ZINC SULFATE 220 MG CAP PO SCH (08:50)
[2020-03-19] MEDS: NON FORMULARY DRUG (Mirabegron [Myrbetriq] 50 MG Tab.Er.24h) PO SCH (10:17)
--- NOTE | 2020-03-19 10:30 | P.PN ---
Subjective Progress Note Date: 03/19/20 Principal diagnosis: Small pleural effusion bilateral with fluid overload Sepsis Acute hypoxic respiratory failure Acute kidney injury likely prerenal improved and normalized with fluid resuscitation Covid in 19 pneumonia Hypertension hypertensive cardiovascular disease History of coronary artery disease Dyslipidemia hypertension hypertensive cardiovascular disease TIA 03/19/2020, patient seen eval examined during the rounds labs reviewed medications reviewed cough congestion shortness of breath stable, oxygen saturation is 95% on 8 L oxygen was decreased to 6 L now, will monitor oxygen saturation closely keep saturation over 90-92%, 03/18/2020, patient seen eval examined during the rounds labs reviewed medications reviewed, denies any chest pain shortness of breath slightly better able to bring down the oxygen from 10 L high flow to a liter now and sats are mid to low 90s, remains tachypneic, denies any chest pain cough or sputum production 03/17/2020, patient seen eval reexamined during the rounds labs reviewed medications reviewed, continued on oxygen saturation is stable on 8 L, cough is improved shortness of breath however especially during exertion continue to be present, 03/16/2020, patient seen eval examined during the rounds labs reviewed m edications reviewed, patient remains on high flow oxygen, oxygen saturation is mid 90s remains short of breath but severity has improved, patient remains on therapy for Covid 19 pneumonia cough congestion is better but shortness of breath is there, 03/15/2020, patient seen eval examined during the rounds labs reviewed medications reviewed care plan discussed with the staff at length, cough conges tion is slightly improved patient is down to 10 L high flow oxygen, saturation is 95-98%, respiratory status much improved today compared to yesterday, off of IV fluids, computed tomography scan of the chest reviewed no pulmonary embolism is present, interstitial edema and bilateral small pleural effusion noted consistent with fluid overload along with bilateral infiltrates of covid-19 with pneumonia This is a 79-year-old male who was seen eval reexamined on medical floor patient has a two-week history of ongoing progressive shortness of breath, patient also has problems associated with diarrhea intermittently developed aches and pains and fatigue, patient was diagnosis: 19 pneumonia and a half weeks ago, on arrival his x-ray consistent with bilateral infiltrate consistent with: 19 pneumonia, patient has been on IV REM doesn't wear as well as x-ray drawn, oxygen requirement however went up from 2 L 48 hours 03/17/2020, patient seen eval examined during the rounds labs reviewed medications reviewed, respiratory status remains stable, wheezing have resolved now cuff congestion improved no hemoptysis present, patient is being planned for discharge on oral antibiotics, Objective - Vital Signs Vital signs: Vital Signs Temp 97.4 F L 03/19/20 09:48 Pulse 72 03/19/20 09:48 Resp 18 03/19/20 09:48 BP 133/65 03/19/20 09:48 Pulse Ox 96 03/19/20 09:48 Intake & Output 03/18/20 03/19/20 03/19/20 18:59 06:59 18:59 Intake Total 250 Output Total 300 300 Balance -300 -50 Intake: Oral 250 Output: Urine 300 300 Other: Voiding Method Incontinent Incontinent # Voids 700 - Exam - Constitutional General appearance: average body habitus, cooperative, disheveled, morbidly obese - EENT Eyes: EOMI, PERRLA Ears: bilateral: normal - Neck Neck: normal ROM Carotids: bilateral: upstroke normal - Respiratory Respiratory: bilateral: diminished - Cardiovascular Rhythm: regular Heart sounds: normal: S1, S2 - Neurologic Neurologic: CNII-XII intact - Musculoskeletal Musculoskeletal: gait normal, generalized weakness, strength equal bilaterally - Psychiatric Psychiatric: A&O x's 3, appropriate affect, intact judgment & insight - Labs CBC & Chem 7: 03/13/20 06:15 03/18/20 09:32 Labs: Abnormal Lab Results - Last 24 Hours (Table) 03/18/20 Range/Units 09:32 Sodium 135 L (137-145) mmol/L BUN 24 H (9-20) mg/dL Glucose 119 H (74-99) mg/dL Calcium 7.6 L (8.4-10.2) mg/dL Assessment and Plan Assessment: Covid 19 pneumonia Sepsis Acute hypoxic respiratory failure Acute kidney injury likely prerenal improved and normalized with fluid resuscitation Bilateral pleural effusion and fluid overload appears to be reason along with Covid 19 pneumonia for worsening of acute respiratory failure, observe with auto diuresis Hypertension hypertensive cardiovascular disease History of coronary artery disease Dyslipidemia hypertension hypertensive cardiovascular disease TIA Plan: Continue to titrate oxygen down 1-2 L every 24 hours slowly and cautiously Computed tomography scan of the chest reviewed continue auto diuresis titrated oxygen down as tolerated to keep saturation over 90-92% Worsening hypoxemia most likely related to Covid 19 pneumonia and respiratory fa ilure associated however other etiologies like fluid overload appears to be less likely, continue auto diuresis status post IV Remdesivir Continue Decadron, Further recommendations pending plan of care as per clinical response of the patient Time with Patient: Greater than 30
[2020-03-19 11:45] LABS: African American GFR (CKD) >90 (>60 ml/min/1.73 sqM); Anion Gap 4 mmol/L; Blood Urea Nitrogen 19 mg/dL (9-20); Calcium 7.5 mg/dL (8.4-10.2); Carbon Dioxide 26 mmol/L (22-30); Chloride 105 mmol/L (98-107); Glucose 117 mg/dL (74-99); Non-African American GFR(CKD) >90 (>60 ml/min/1.73 sqM); Potassium 3.5 mmol/L (3.5-5.1); Sodium 135 mmol/L (137-145)
--- NOTE | 2020-03-19 14:11 | P.PN ---
Subjective Progress Note Date: 03/19/20 Patient is a pleasant 70-year-old male came in with complaints of diarrhea. Patient was having several episodes of diarrhea patient had was having generalized body aches fatigue. Patient is found to have Covid 19 which was diagnosed the of this month. Patient was having these symptoms for about a week. Patient did have nausea vomiting as well. Patient has not been eating or drinking since the symptoms and patient is found to be in acute renal failure. Patient was really doesn't have any fever. Patient denied any shortness of breath is having cough. Patient had a chest x-ray which showed bilateral pneumonia which is consistent with Covid 19. Patient denied any UTI-like symptoms but the because of mildly abnormal urine patient was given a dose of Rocephin in ER. 03/12/2020 Patient is seen and evaluated in follow-up today and continues to have multiple episodes of diarrhea and has been incontinent of stool. Patient continues to have some generalized body aches along with decreased appetite and general malaise. Patient is Covid 19 positive and currently being followed by [facility]. Nephrology following as well for acute renal failure although has improved at this time. Patient is currently maintained on oral Zithromax along with dexamethasone and subcutaneous Lovenox zinc supplements. Nephrology was consulted and following for acute renal failure and sodium bicarbonate tablets have been added. Current sodium is 141 with a BUN of 27 and creatinine of 1.3. Review of systems: Constitutional: Reports fatigue, with no reports of fever, or chills Cardiovascular: No reports of chest pain or palpitations Respiratory: Reports mild shortness of breath GI: No reports of nausea, vomiting. Reports multiple episodes of diarrhea : No reports of dysuria or retention Neurovascular: Reports weakness All medications have been reviewed 03/13/2020 Patient is seen in follow-up today and respiratory status has worsened and is currently maintained on 4-5 L via nasal cannula with 92% saturation. Patient's blood pressure is also continue to be elevated and lisinopril was resumed. IV fluids discontinued per nephrology. Creatinine continues to improve and is currently 0.9. Sodium is 142, and repeat potassium is 4.0. Patient only had one episode of diarrhea last night and is maintained on Questran at this time. Patient also continues to have poor appetite. Infectious disease is following and patient completed a course of Zithromax and is currently maintained on dexamethasone, Lovenox, zinc supplements, and Remdesivir was initiated today. Will repeat labs and continue to monitor closely. Droplet isolation precautions maintained. Currently patient denies any chest pain or palpitations. Patient is afebrile. No reports of nausea or vomiting and patient is tolerating diet. 03/14/2020 Patient is seen and evaluated in follow-up and continues to have respiratory distress and increasing shortness of breath requiring nonrebreather and high kathy w oxygen at 15 L. A chest x-ray was done showing diffuse bilateral airspace disease is stable and to correlate for diffuse pneumonia although pulmonary edema is not excluded. A chest CTA was ordered by Dr. Jackie desouza which showed small bilateral pleural effusions and areas of pneumonitis and atypical pneumonia. Infectious disease is also following and patient is maintained on Remdesivir, Lovenox, and dexamethasone and will continue at this time. Review of systems: Constitutional: reports fatigue, no reports of fever, or chills Cardiovascular: No reports of chest pain or palpitations Respiratory: Reports worsening shortness of breath and cough GI: No reports of nausea, vomiting, or diarrhea : No reports of dysuria or retention Neurovascular: Reports weakness with no reports of numbness All medications have been reviewed 03/15/2020 Patient is seen in follow-up and remains on high flow oxygen for increasing shortness of breath. Patient has been weaned down to 10 L high flow. Patient states he is having some nausea and abdominal discomfort today. Zofran ordered. Infectious disease and pulmonary following and will continue on current medication regimen. Patient is in isolation for Covid 19 infection. Patient states that his diarrhea has resolved and is refusing Questran at this time. PT/OT following as patient continues to be quite weak and not ambulating and wou ld benefit from rehab once discharged. social work consulted as patient may need assistance with discharge planning needs or possibility of ECF rehab placement. Potassium today is 3.4 and will be replaced. Magnesium is 1.8 and current sodium is 141. Will repeat a.m. labs. Review of systems: Constitutional: Reports generalized weakness, and fatigue Cardiovascular: No reports of chest pain or palpitations Respiratory: Reports shortness of breath and cough GI: Reports nausea with no reports of vomiting or diarrhea : No reports of dysuria or retention Neurovascular: reports of weakness with no reports of numbness All medications have been reviewed 03/16/2020 Patient is presently 10 L of oxygen better today compared to yesterday patient was on 15 L yesterday 03/17/2020 Patient doesn't have any diarrhea kidney function improved, patient is presently on 8 L of oxygen. Review of systems: Constitutional: Reports generalized weakness, and fatigue Cardiovascular: No reports of chest pain or palpitations Respiratory: Reports shortness of breath and cough GI: Reports nausea with no reports of vomiting or diarrhea : No reports of dysuria or retention Neurovascular: reports of weakness with no reports of numbness All medications have been reviewed 03/18/2020 Patient is seen and evaluated in follow-up and continues on high flow via nasal cannula and is currently on 8 L. Discussed with nursing staff about continuing to wean patient off oxygen. Infectious disease and pulmonary following. Patient remains on dexamethasone along with ink and Lovenox and has completed Remdesivir. Nephrology also following as patient had elevated creatinine although is currently 0.71 today. Sodium is 135 and potassium is 3.5. Patient denies any nausea or vomiting and has been tolerating diet. Patient continues to have poor appetite although is eating with meals. Discussed with patient about discharge planning and patient states he will be going home once discharged. Patient does have caregivers that come to the home. Review of systems: Constitutional: Reports fatigue, fever, or chills Cardiovascular: No reports of chest pain or palpitations Respiratory: Reports intermittent shortness of breath and cough with slight improvement GI: No reports of nausea, vomiting, or diarrhea : No reports of dysuria or retention Neurovascular: reports generalized weakness All medications have been reviewed 03/19/2020 Patient seen in follow-up with no acute overnight issues. Patient states he is feeling much better and respiratory status is slowly improving. Patient is currently on 5 L of oxygen at 96% via nasal cannula. Discussed with nursing staff and pulmonary and currently working on weaning FiO2 as tolerated. Patient made it clear during conversation today that he will be returning home and will not be going to any form of rehab. Patient has support at home along with caregivers. Patient currently denies any chest pain, worsening shortness of breath, or palpitations. Patient is afebrile. No reports of nausea or vomiting and patient actually is eating more meals and has more of an appetite and is tolerating. Objective - Vital Signs Vital signs: Vital Signs Temp 97.4 F L 03/19/20 09:48 Pulse 72 03/19/20 09:48 Resp 18 03/19/20 09:48 BP 133/65 03/19/20 09:48 Pulse Ox 96 03/19/20 09:48 Intake & Output 03/18/20 03/19/20 03/19/20 18:59 06:59 18:59 Intake Total 250 Output Total 300 300 Balance -300 -50 Intake: Oral 250 Output: Urine 300 300 Other: Voiding Method Incontinent Incontinent # Voids 700 - Exam GENERAL: The patient is alert and oriented x3, in no acute distress. Well developed, well nourished. HEENT: Pupils are round and equally reacting to light. EOMI. No scleral icterus. No conjunctival pallor. Normocephalic, atraumatic. No pharyngeal erythema. No thyromegaly. CARDIOVASCULAR: S1 and S2 present. No murmurs, rubs, or gallops. PULMONARY: Breath sounds diminished bilaterally with no wheezing or rhonchi noted ABDOMEN: Soft, nontender, nondistended, normoactive bowel sounds. No palpable organomegaly. MUSCULOSKELETAL: No joint swelling or deformity. EXTREMITIES: No cyanosis, clubbing, or pedal edema. NEUROLOGICAL: Gross neurological examination did not reveal any focal deficits. SKIN: No rashes. - Labs CBC & Chem 7: 03/13/20 06:15 03/19/20 10:52 Assessment and Plan Assessment: -Sepsis: Secondary to Covid 19 pneumonia. Present on admission Patient is maintained on Decadron along with Lovenox. Remdesivir finished. Infectious disease following. -Pneumonitis/pneumonia secondary to covid 19 -Acute hypoxic respiratory failure secondary to Covid 19 pneumonia, pulmonary following -Diarrhea most likely secondary to Covid 19, resolved -Acute renal failure mostly prerenal azotemia from nausea vomiting, diarrhea: Improved -CAD -Severe TIA in the past with some right-sided deficit -Gait dysfunction -Hyperlipidemia -Hypertension -GI prophylaxis -DVT prophylaxis Plan: Continue with current medications and will continue to monitor vital signs and labs closely. Nephrology, pulmonary, and infectious disease are following. Discussed with nursing staff about weaning off FiO2 patient is currently on 5 L via nasal cannula at 96% Increase activity as tolerated. Further recommendations to follow. Possible discharge in 24-48 hours.
[2020-03-19] MEDS: TEMAZEPAM 15 MG CAP PO PRN (21:10)
--- NOTE | 2020-03-20 00:48 | PN ---
PROGRESS NOTE DATE OF SERVICE: 03/19/2020 REASON FOR FOLLOWUP: Acute COVID-19 pneumonia. INTERVAL HISTORY: The patient is currently afebrile. The patient is breathing more comfortably. The patient denies having any chest pain. Minimal cough. No nausea, no vomiting. No abdominal pain. The patient is currently down to 5 L. PHYSICAL EXAMINATION: Blood pressure is 143/64 with a pulse of 62, temperature 98.1. He is 96% on 5 L nasal cannula. General description is an elderly male up in the chair in no distress. RESPIRATORY SYSTEM: Unlabored breathing, decreased breath sounds at the bases. No wheeze. HEART: S1, S2. Regular rate and rhythm. ABDOMEN: Soft, no tenderness. LABS: BUN of 19, creatinine 0.68. Hemoglobin 13.8, white count 8.5. DIAGNOSTIC IMPRESSION AND PLAN: Patient with acute COVID-19 infection. This patient seems to have shown overall clinical improvement. The patient completed a 5-day course of remdesivir. Currently on dexamethasone, Lovenox, zinc sulfate to continue. Slowly wean off his oxygen. Continue with supportive care. MMODL / IJN: [id number] /
[2020-03-20 06:54] VITALS: PULSE 76
[2020-03-20] MEDS: ALBUTEROL HFA INHALER INHALATION PRN ×3 (07:31→15:47)
[2020-03-20] MEDS: ASPIRIN 81 MG PO SCH (09:17)
[2020-03-20] MEDS: dexAMETHasone 2 MG TAB PO SCH (09:17)
[2020-03-20] MEDS: ZINC SULFATE 220 MG CAP PO SCH (09:18)
[2020-03-20] MEDS: TAMSULOSIN 0.4 MG CAP.ER.24H PO SCH (09:18)
[2020-03-20] MEDS: hydrALAZINE HCL 50 MG TAB PO SCH (09:18)
[2020-03-20] MEDS: FINASTERIDE 5 MG TAB PO SCH (09:19)
[2020-03-20] MEDS: ATORVASTATIN 20 MG TAB PO SCH (09:19)
[2020-03-20] MEDS: CLOPIDOGREL 75 MG TAB PO SCH (09:19)
[2020-03-20] MEDS: ENOXAPARIN 40 MG/0.4 ML SYRINGE SQ SCH (09:20)
[2020-03-20] MEDS: lisinopriL 20 MG TAB PO SCH (09:20)
[2020-03-20] MEDS: BICALUTAMIDE 50 MG TAB PO SCH (09:20)
[2020-03-20 09:24] VITALS: BP 151/66; TEMP 98.3
[2020-03-20] MEDS: SODIUM BICARBONATE TAB 650 MG TAB PO SCH (09:27)
[2020-03-20] MEDS: NON FORMULARY DRUG (Mirabegron [Myrbetriq] 50 MG Tab.Er.24h) PO SCH (09:27)
[2020-03-20 11:42] VITALS: RESP 20
--- NOTE | 2020-03-21 11:01 | P.PN ---
Subjective Progress Note Date: 03/20/20 Principal diagnosis: Small pleural effusion bilateral with fluid overload Sepsis Acute hypoxic respiratory failure Acute kidney injury likely prerenal improved and normalized with fluid resuscitation Covid in 19 pneumonia Hypertension hypertensive cardiovascular disease History of coronary artery disease Dyslipidemia hypertension hypertensive cardiovascular disease TIA 03/20/2020, patient seen eval reexamined during the rounds labs reviewed medications reviewed cough shortness of breath continued to improve, oxygen supplemental is down to 3 L saturation 97%, primary services leaning towards discharge agree with discharge planning follow-up in telemetry medicine after 2- 4 weeks 03/19/2020, patient seen eval examined during the rounds labs reviewed medications reviewed cough congestion shortness of breath stable, oxygen saturation is 95% on 8 L oxygen was decreased to 6 L now, will monitor oxygen saturation closely keep saturation over 90-92%, 03/18/2020, patient seen eval examined during the rounds labs reviewed medications reviewed, denies any chest pain shortness of breath slightly better able to bring down the oxygen from 10 L high flow to a liter now and sats are mid to low 90s, remains tachypneic, denies any chest pain cough or sputum production 03/17/2020, patient seen eval reexamined during the rounds labs reviewed medications reviewed, continued on oxygen saturation is stable on 8 L, cough is improved shortness of breath however especially during exertion continue to be present, 03/16/2020, patient seen eval examined during the rounds labs reviewed medications reviewed, patient remains on high flow oxygen, oxygen saturation is mid 90s remains short of breath but severity has improved, patient remains on therapy for Covid 19 pneumonia cough congestion is better but shortness of breath is there, 03/15/2020, patient seen eval examined during the rounds labs reviewed medications reviewed care plan discussed with the staff at length, cough congestion is slightly improved patient is down to 10 L high flow oxygen, saturation is 95-98%, respiratory status much improved today compared to yesterday, off of IV fluids, computed tomography scan of the chest reviewed no pulmonary embolism is present, interstitial edema and bilateral small pleural effusion noted consistent with fluid overload along with bilateral infiltrates of covid-19 with pneumonia This is a 79-year-old male who was seen eval reexamined on medical floor patient has a two-week history of ongoing progressive shortness of breath, patient also has problems associated with diarrhea intermittently developed aches and pains and fatigue, patient was diagnosis: 19 pneumonia and a half weeks ago, on arrival his x-ray consistent with bilateral infiltrate consistent with: 19 pneumonia, patient has been on IV REM doesn't wear as well as x-ray drawn, oxygen requirement however went up from 2 L 48 hours 03/17/2020, patient seen eval examined during the rounds labs reviewed medications reviewed, respiratory status remains stable, wheezing have resolved now cuff congestion improved no hemoptysis present, patient is being planned for discharge on oral antibiotics, Objective - Vital Signs Vital signs: Vital Signs Temp 98.3 F 03/20/20 09:23 Pulse 76 03/20/20 09:23 Resp 18 03/20/20 09:23 BP 151/66 03/20/20 09:23 Pulse Ox 97 03/20/20 09:23 Intake & Output 03/19/20 03/20/20 03/20/20 18:59 06:59 18:59 Intake Total 250 400 Output Total 1650 Balance 250 -1250 Intake: Oral 250 400 Output: Urine 1650 Other: Voiding Method Incontinent Incontinent - Exam - Constitutional General appearance: average body habitus, cooperative, disheveled, morbidly obese - EENT Eyes: EOMI, PERRLA Ears: bilateral: normal - Neck Neck: normal ROM Carotids: bilateral: upstroke normal - Respiratory Respiratory: bilateral: diminished - Cardiovascular Rhythm: regular Heart sounds: normal: S1, S2 - Neurologic Neurologic: CNII-XII intact - Musculoskeletal Musculoskeletal: gait normal, generalized weakness, strength equal bilaterally - Psychiatric Psychiatric: A&O x's 3, appropriate affect, intact judgment & insight - Labs CBC & Chem 7: 03/13/20 06:15 03/19/20 10:52 Labs: Abnormal Lab Results - Last 24 Hours (Table) 03/19/20 Range/Units 10:52 Sodium 135 L (137-145) mmol/L Glucose 117 H (74-99) mg/dL Calcium 7.5 L (8.4-10.2) mg/dL Assessment and Plan Assessment: Covid 19 pneumonia Sepsis Acute hypoxic respiratory failure Acute kidney injury likely prerenal improved and normalized with fluid resuscitation Bilateral pleural effusion and fluid overload appears to be reason along with Covid 19 pneumonia for worsening of acute respiratory failure, observe with auto diuresis Hypertension hypertensive cardiovascular disease History of coronary artery disease Dyslipidemia hypertension hypertensive cardiovascular disease TIA Plan: Continue to titrate oxygen down 1-2 L every 24 hours slowly and cautiously, currently on 3 L oxygen saturation is about 97% agree with discharge planning with tapering of oxygen follow up in 2 to 4 weeks telemedicine status post IV Remdesivir Continue Decadron, to finish 10 day therapy Further recommendations pending plan of care as per clinical response of the patient Time with Patient: Greater than 30
--- NOTE | 2020-03-22 09:23 | P.DS ---
Providers Date of admission: 03/11/20 12:14 Expected date of discharge: 03/20/20 Attending physician: Marguerite Bajwa Consults: 03/11/20 12:20 Consult Physician Routine Consulting Provider: Chaz Martin Consult Reason/Comments: YASIR Do you want consulting provider notified?: Yes 03/11/20 14:16 Consult Physician Routine Consulting Provider: Alondra Ritter Consult Reason/Comments: Covid Do you want consulting provider notified?: Yes 03/14/20 10:20 Consult Physician Urgent Consulting Provider: Juanito Mejia Consult Reason/Comments: covid, shortness of breath Do you want consulting provider notified?: Yes Primary care physician: [facility] Hospital Course: Final diagnosis -Sepsis: Secondary to Covid 19 pneumonia. Present on admission -Pneumonitis/pneumonia secondary to covid 19 -Acute hypoxic respiratory failure secondary to Covid 19 pneumonia -Diarrhea most likely secondary to Covid 19, resolved -Acute renal failure mostly prerenal azotemia from nausea vomiting, diarrhea: Improved -CAD -Severe TIA in the past with some right-sided deficit -Gait dysfunction -Hyperlipidemia -Hypertension -GI prophylaxis -DVT prophylaxis Discharge disposition Patient is being discharged in a stable condition with guarded prognosis to home. Patient will continue with home care in the outpatient setting. Patient will follow-up with [facility] in the outpatient setting upon discharge. Patient is to continue to quarantine for an additional 1 week until symptom-free for 3 days. Patient will require home oxygen due to Covid 19 upon discharge at 3 L via nasal cannula. Total time taken is greater than 35 minutes. History of present illness This is a 79-year-old male who was recently admitted with a beer diarrhea and generalized body aches and fatigue and was being closely monitored. Patient was tested positive for Covid 19 and discharged earlier in the month. Patient continued to not feel well and have nausea vomiting along with shortness of breath. Patient was placed on high flow oxygen and continued to be very weak. Pulmonary and infectious disease were following. Patient was initiated on dexamethasone along with Lovenox and zinc supplements and ultimately completed a course of Remdesivir. Patient continued to require oxygen although showed some improvement but will be going home on home O2 at 3 L via nasal cannula due to hypoxia related to Covid 19 pneumonia. Patient instructed to follow-up in the clinic in the outpatient setting upon discharge. Patient was seen and evaluated by physical therapy and may possibly benefit from rehab although is adamant against it and would like to go home stating he has caregivers and his son at home to help him. Patient was provided a wheelchair as he has staff that can assist him with his ADLs as he does have deficits from previous TIA in the past. Currently no reports of chest pain, worsening shortness of breath, or palpitations. Patient is afebrile. No reports of nausea or vomiting and patient is tolerating diet. Patient will be going home today. On exam vital signs are stable. Temp is 98.3F, pulse is 76, respirations are 18, blood pressure is 151/66, oxygen saturation is 97% on 3 L via nasal cannula. Cardio S1, S2 are muffled. Respiratory system shows diminished breath sounds at the bases with no wheezing or rhonchi noted. Abdomen is soft and nontender. Nervous system shows no focal deficits. Please refer to medication reconciliation sheet for a list of medications. Patient Condition at Discharge: Stable Plan - Discharge Summary Discharge Rx Participant: Yes New Discharge Prescriptions: New hydrALAZINE HCL [Apresoline] 100 mg PO TID 30 Days #90 tab Zinc Sulfate [Orazinc] 220 mg PO DAILY 30 Days #30 cap Sodium Bicarbonate Tab 1,300 mg PO BID 15 Days #30 tab Continue Tamsulosin [Flomax] 0.4 mg PO DAILY lisinopriL [Zestril] 20 mg PO DAILY Finasteride [Proscar] 5 mg PO DAILY Clopidogrel [Plavix] 75 mg PO DAILY Aspirin 81 mg PO DAILY Simvastatin 40 mg PO DAILY Albuterol Inhaler [Ventolin Hfa Inhaler] 1 puff INHALATION RT-QID PRN #1 inhaler PRN Reason: wheezing Bicalutamide 50 mg PO DAILY Mirabegron [Myrbetriq] 50 mg PO DAILY Discharge Medication List Aspirin 81 mg PO DAILY 01/28/18 [History] Clopidogrel [Plavix] 75 mg PO DAILY 01/28/18 [History] Finasteride [Proscar] 5 mg PO DAILY 01/28/18 [History] Simvastatin 40 mg PO DAILY 01/28/18 [History] Tamsulosin [Flomax] 0.4 mg PO DAILY 01/28/18 [History] lisinopriL [Zestril] 20 mg PO DAILY 01/28/18 [History] Albuterol Inhaler [Ventolin Hfa Inhaler] 1 puff INHALATION RT-QID PRN #1 inhaler 03/05/20 [Rx] Bicalutamide 50 mg PO DAILY 03/11/20 [History] Mirabegron [Myrbetriq] 50 mg PO DAILY 03/11/20 [History] Sodium Bicarbonate Tab 1,300 mg PO BID 15 Days #30 tab 03/20/20 [Rx] Zinc Sulfate [Orazinc] 220 mg PO DAILY 30 Days #30 cap 03/20/20 [Rx] hydrALAZINE HCL [Apresoline] 100 mg PO TID 30 Days #90 tab 03/20/20 [Rx] Follow up Appointment(s)/Referral(s): Rahul Sanchez, [NON-STAFF] - [facility] [Primary Care Provider] - 04/02/20 1:30 pm (This will be a virtual appointemnt Office chloe get ahold of you prior to) Patient Instructions/Handouts: Viral Pneumonia (DC) Activity/Diet/Wound Care/Special Instructions: Patient requires home oxygen at discharge for hypoxia secondary to COVID-19 Continue with home care in the outpatient setting Activity Limited until follow-up Continue to quarantine in the home for an additional 7-10 days Continue with home oxygen Follow-up with primary care provider upon discharge Discharge Disposition: HOME WITH HOME HEALTH SERVICES
== END 2020-03-20 16:06 | disposition home health service (06) | DRG 871 ==
LOC: EC 10:25 → 4SSUR 12:14
PROVIDERS: ADMIT Internal Medicine; ATTEND Internal Medicine
DX: A41.89 Other specified sepsis (principal); U07.1 COVID-19; J12.89 Other viral pneumonia; J96.01 Acute respiratory failure with hypoxia; E87.2 Acidosis; J90 Pleural effusion, not elsewhere classified; N17.9 Acute kidney failure, unspecified; N39.0 Urinary tract infection, site not specified; D72.810 Lymphocytopenia; E78.5 Hyperlipidemia, unspecified; E86.1 Hypovolemia; E87.6 Hypokalemia; E87.70 Fluid overload, unspecified; Z86.73 Personal history of transient ischemic attack (TIA), and cerebral infarction without residual deficits; R19.7 Diarrhea, unspecified; R26.9 Unspecified abnormalities of gait and mobility; I11.9 Hypertensive heart disease without heart failure; I25.10 Atherosclerotic heart disease of native coronary artery without angina pectoris; T38.0X5A Adverse effect of glucocorticoids and synthetic analogues, initial encounter; Z79.02 Long term (current) use of antithrombotics/antiplatelets; Z79.52 Long term (current) use of systemic steroids; Z79.82 Long term (current) use of aspirin; Z79.899 Other long term (current) drug therapy; Z87.891 Personal history of nicotine dependence; Z88.0 Allergy status to penicillin; Z90.49 Acquired absence of other specified parts of digestive tract
CPT/HCPCS: 36415; 71045; 71275; 74018; 76770; 80048; 80053; 81001; 82150; 82570; 83615; 83690; 83735; 84300; 84484; 85025; 85027; 86140; 87040; 87086; 93005; 94640; 94760; 96361; 96374; 96375; 99285

== ENCOUNTER → 2020-11-04 | Outpatient (CLI) | payer MEDICARE, OTHER ==
--- NOTE | 2020-11-05 16:59 | NM ---
EXAMINATION TYPE: NM bone scan whole body DATE OF EXAM: 11/04/2020 COMPARISON: Previous exam 10/25/2019 HISTORY: Prostate cancer Delayed whole-body scanning was performed following the injection of 21.5 mCi Tc 99m MDP. Images acq uired 3.5 hours post injection. FINDINGS: There is no significant interval change. IMPRESSION: Stable exam. Degenerative changes. No evident abnormality to suggest metastatic disease.
== END | disposition home or self-care (01) ==
LOC: RADNMMAIN 11:27
PROVIDERS: ATTEND Radiology Radiation Oncology
DX: C61 Malignant neoplasm of prostate (principal)
CPT/HCPCS: 84153; 78306; A9503

== ENCOUNTER → 2020-11-13 | Outpatient (CLI) | payer OTHER ==
--- NOTE | 2020-11-14 07:19 | US ---
EXAMINATION TYPE: US carotid duplex BILAT DATE OF EXAM: 11/13/2020 COMPARISON: NONE CLINICAL HISTORY: I63.23 Cerebral infarction due to unspecified occlusion or s. right endarterectomy 10 years ago EXAM MEASUREMENTS: RIGHT: Peak Systolic Velocity (PSV) cm/sec ----- Right CCA: 79.2 ----- Right ICA: 159 ----- Right ECA: 130 ICA/CCA ratio: 2.0 RIGHT: End Diastole cm/sec ----- Right CCA: 13.8 ----- Right ICA: 29.0 ----- Right ECA: 20.8 LEFT: Peak Systolic Velocity (PSV) cm/sec ----- Left CCA: 40.6 ----- Left ICA: 140 ----- Left ECA: 96.7 ICA/CCA ratio: 3.5 LEFT: End Diastole cm/sec ----- Left CCA: 12.3 ----- Left ICA: 33.7 ----- Left ECA: 13.9 VERTEBRALS (direction of flow): Right Vertebral: Antegrade Left Vertebral: Antegrade Rhythm: Normal Mild plaque right bifurcation. Moderate plaque left bifurcation. Increased velocities bilateral ICA's IMPRESSION: Atherosclerosis with 50-69% stenosis of the bilateral carotid arteries by peak systolic velocity manasa bueno. Criteria for Assigning % of Stenosis / Diameter reduction (Estimation based on the indirect measurements of the internal carotid artery velocities (ICA PSV). 1. Normal (no stenosis)=ICA PSV < 125 cm/s: ratio < 2.0: ICA EDV<40 cm/s. 2. Less than 50% stenosis=ICA PSV < 125 cm/s: ratio < 2.0: ICA EDV<40 cm/s. 3. 50 to 69% stenosis=ICA PSV of 125 to 230 cm/s: ration 2.0 ? 4.0: ICA EDV 40-100 cm/s. 4. Greater than 70% stenosis to near occlusion= ICA PSV > 230 cm/s: ratio > 4.0: ICA EDV > 100 cm/s. 5. Near occlusion= ICA PSV velocities may be low or undetectable: variable ratio and ICA EDV. 6. Total occlusion=unable to detect flow.
== END | disposition home or self-care (01) ==
LOC: RADUSWWP 15:59
PROVIDERS: ATTEND Family Medicine
DX: I65.23 Occlusion and stenosis of bilateral carotid arteries (principal)
CPT/HCPCS: 93880

== ENCOUNTER 2021-02-03 10:33 | Emergency (ER) | payer OTHER, MEDICARE ==
[2021-02-03 11:23] VITALS: TEMP 100
[2021-02-03 12:42] LABS: Basophils % (A) 0 %; Eosinophils % (A) 0 %; HCT 42.3 % (39.0-53.0); Lymphocytes # (A) 0.6 k/uL (1.0-4.8); Lymphocytes % (A) 6 %; MCH 31.2 pg (25.0-35.0); MCHC 33.2 g/dL (31.0-37.0); MCV 94.1 fL (80.0-100.0); Monocytes # (A) 0.7 k/uL (0-1.0); Monocytes % (A) 7 %; Neutrophils # (A) 8.4 k/uL (1.3-7.7); Neutrophils % (A) 85 %; Platelet Count 170 k/uL (150-450); WBC 9.9 k/uL (3.8-10.6)
--- NOTE | 2021-02-03 12:57 | XR ---
EXAMINATION TYPE: XR chest 2V DATE OF EXAM: 02/03/2021 COMPARISON: 03/14/2020 TECHNIQUE: PA and lateral views submitted. HISTORY: Chest pain FINDINGS: Lower lobe infiltrate and small effusion. Coarsened interstitial pattern. Underlying COPD noted. Biap ical pleural thickening. Arthropathy of the shoulders. Heart size normal. Degenerative changes of the spine. IMPRESSION: 1. COPD with left lower lobe infiltrate and small effusion.
[2021-02-03 13:00] LABS: ALT 14 U/L (4-49); AST 21 U/L (17-59); African American GFR (CKD) >90 (>60 ml/min/1.73 sqM); Albumin 3.8 g/dL (3.5-5.0); Alkaline Phosphatase 84 U/L (38-126); Anion Gap 9 mmol/L; Blood Urea Nitrogen 13 mg/dL (9-20); Calcium 9.3 mg/dL (8.4-10.2); Carbon Dioxide 22 mmol/L (22-30); Chloride 106 mmol/L (98-107); Glucose 124 mg/dL (74-99); Magnesium 2.1 mg/dL (1.6-2.3); Non-African American GFR(CKD) 90 (>60 ml/min/1.73 sqM); Potassium 4.2 mmol/L (3.5-5.1); Sodium 137 mmol/L (137-145); Total Bilirubin 0.8 mg/dL (0.2-1.3); Total Protein 7.1 g/dL (6.3-8.2)
[2021-02-03 13:01] LABS: INR 0.9 (<1.2); Partial Thromboplastin Time 26.3 sec (22.0-30.0)
--- NOTE | 2021-02-03 14:37 | CT ---
CT CHEST FOR PULMONARY EMBOLISM. EXAMINATION TYPE: CT chest angio for PE DATE OF EXAM: 02/03/2021 INDICATION: Chest pain, SOB CT DLP: 484.2 mGycm, Automated exposure control for dose reduction was used. CONTRAST: Patient injected with 100 ml mL of Isovue 370. COMPARISON: None TECHNIQUE: CT of the chest is performed on a spiral scan at 2 mm thick sections. Study is performed with intravenous contrast timed for evaluation for pulmonary embolism. This will limit additional po rtions of the evaluation. 3-D MIP images reconstructed by the technologist are reviewed on the compu ter in the coronal and sagittal planes. FINDINGS: No persistent filling defects are evident to suggest an acute pulmonary embolism. No mediastinal or hilar adenopathy enlarged by CT criteria is evident. The ascending aorta diameter at the level of the main pulmonary artery is 3.2 cm. The main pulmonary artery diameter at the bifur cation is 2.5 cm. There may be a minimal pericardial effusion. There is a small left pleural effusion. There is stranding through the left lung. Emphysematous rubio ges at the lung apices. Limited CT section through the upper abdomen are unremarkable. IMPRESSIONS: 1. No acute pulmonary embolism
--- NOTE | 2021-02-03 14:44 | ED ---
General Adult HPI - General Chief complaint: Chest Pain Stated complaint: chest pain Time Seen by Provider: 02/03/21 11:28 Source: patient, family, RN notes reviewed Mode of arrival: ambulatory Limitations: no limitations - History of Present Illness Initial comments: 80-year-old male that presents to emergency department complaining of shortness of breath with minimal chest discomfort. He notes that he was seen at several hospitals several chest x-rays that showed small pleural effusion. He notes that he has a computed tomography scan scheduled. About a week or 2. He notes that he came in today for continuing of symptoms with no improvement. He was otherwise a well-appearing 80-year-old male. He denied any other issues or complaints. He denied headache nausea vomiting diarrhea constipation fever fatigue chills. - Related Data Home Medications Medication Instructions Recorded Confirmed Aspirin 81 mg PO DAILY 01/28/18 03/11/20 Clopidogrel [Plavix] 75 mg PO DAILY 01/28/18 03/11/20 Finasteride [Proscar] 5 mg PO DAILY 01/28/18 03/11/20 Simvastatin 40 mg PO DAILY 01/28/18 03/11/20 Tamsulosin [Flomax] 0.4 mg PO DAILY 01/28/18 03/11/20 lisinopriL [Zestril] 20 mg PO DAILY 01/28/18 03/11/20 Bicalutamide 50 mg PO DAILY 03/11/20 03/11/20 Mirabegron [Myrbetriq] 50 mg PO DAILY 03/11/20 03/11/20 Previous Rx's Medication Instructions Recorded Albuterol Inhaler [Ventolin Hfa 1 puff INHALATION RT-QID PRN #1 03/05/20 Inhaler] inhaler Sodium Bicarbonate Tab 1,300 mg PO BID 15 Days #30 tab 03/20/20 Zinc Sulfate [Orazinc] 220 mg PO DAILY 30 Days #30 cap 03/20/20 hydrALAZINE HCL [Apresoline] 100 mg PO TID 30 Days #90 tab 03/20/20 Levofloxacin [Levaquin] 500 mg PO DAILY #10 tab 02/03/21 Allergies Allergy/AdvReac Type Severity Reaction Status Date / Time Penicillins Allergy Unknown Verified 02/03/21 11:23 Childhood Review of Systems ROS Statement: Those systems with pertinent positive or pertinent negative responses have been documented in the HPI. ROS Other: All systems not noted in ROS Statement are negative. Past Medical History Past Medical History: Coronary Artery Disease (CAD), CVA/TIA, Hyperlipidemia, Hypertension History of Any Multi-Drug Resistant Organisms: None Reported Past Surgical History: Appendectomy Additional Past Surgical History / Comment(s): carotid artery Past Anesthesia/Blood Transfusion Reactions: No Reported Reaction Past Psychological History: No Psychological Hx Reported Smoking Status: Former smoker Past Alcohol Use History: Occasional Past Drug Use History: None Reported General Exam Limitations: no limitations General appearance: alert, in no apparent distress Head exam: Present: atraumatic, normocephalic, normal inspection Eye exam: Present: normal appearance, PERRL, EOMI. Absent: scleral icterus, conjunctival injection, periorbital swelling ENT exam: Present: normal exam, mucous membranes moist Neck exam: Present: normal inspection Respiratory exam: Present: normal lung sounds bilaterally. Absent: respiratory distress, wheezes, rales, rhonchi, stridor Cardiovascular Exam: Present: regular rate, normal rhythm, normal heart sounds. Absent: systolic murmur, diastolic murmur, rubs, gallop, clicks Extremities exam: Present: normal inspection, full ROM, normal capillary refill. Absent: tenderness, pedal edema, joint swelling, calf tenderness Neurological exam: Present: alert, oriented X3 Psychiatric exam: Present: normal affect, normal mood Skin exam: Present: warm, dry, intact, normal color. Absent: rash Course Vital Signs 02/03/21 02/03/21 02/03/21 11:15 12:00 12:30 Temperature 100.0 F H Pulse Rate 74 69 69 Respiratory 20 20 20 Rate Blood Pressure 133/66 128/50 109/50 O2 Sat by Pulse 98 97 97 Oximetry EKG Findings - EKG Comments: EKG Findings:: Ventricular rate 79 bpm, NV interval 200 ms, QRS duration 84 ms, QTC 410 ms, PRT axes 71/47/72. Sinus rhythm with premature atrial complexes, otherwise normal ECG. Medical Decision Making - Medical Decision Making 80-year-old male complaining of shortness of breath ongoing. Labs, EKG, cardiac cath tech, chest x-ray, CT of the chest ordered. Labs unremarkable. Chest x-ray and CT of the chest both show a small left-sided pleural effusion with no evidence of pulmonary embolism. Patient does have a follow-up with specialists scheduled already. Antibiotics sent to pharmacy for prevention of possible pneumonia. Ambulatory oxygen between 90-93%, patient did not report feeling short of breath. Case discussed with Dr. Hidalgo, patient discharge home with follow-up to [facility] care - Lab Data Result diagrams: 02/03/21 10:40 02/03/21 10:40 Lab Results 02/03/21 02/03/21 02/03/21 Range/Units 10:40 10:40 10:40 WBC 9.9 (3.8-10.6) k/uL RBC 4.50 (4.30-5.90) m/uL Hgb 14.0 (13.0-17.5) gm/dL Hct 42.3 (39.0-53.0) % MCV 94.1 (80.0-100.0) fL MCH 31.2 (25.0-35.0) pg MCHC 33.2 (31.0-37.0) g/dL RDW 13.0 (11.5-15.5) % Plt Count 170 (150-450) k/uL MPV 7.0 Neutrophils % 85 % Lymphocytes % 6 % Monocytes % 7 % Eosinophils % 0 % Basophils % 0 % Neutrophils # 8.4 H (1.3-7.7) k/uL Lymphocytes # 0.6 L (1.0-4.8) k/uL Monocytes # 0.7 (0-1.0) k/uL Eosinophils # 0.0 (0-0.7) k/uL Basophils # 0.0 (0-0.2) k/uL PT 10.0 (9.0-12.0) sec INR 0.9 (<1.2) APTT 26.3 (22.0-30.0) sec Sodium 137 (137-145) mmol/L Potassium 4.2 (3.5-5.1) mmol/L Chloride 106 (98-107) mmol/L Carbon Dioxide 22 (22-30) mmol/L Anion Gap 9 mmol/L BUN 13 (9-20) mg/dL Creatinine 0.69 (0.66-1.25) mg/dL Est GFR (CKD-EPI)AfAm >90 (>60 ml/min/1.73 sqM) Est GFR (CKD-EPI)NonAf 90 (>60 ml/min/1.73 sqM) Glucose 124 H (74-99) mg/dL Calcium 9.3 (8.4-10.2) mg/dL Magnesium 2.1 (1.6-2.3) mg/dL Total Bilirubin 0.8 (0.2-1.3) mg/dL AST 21 (17-59) U/L ALT 14 (4-49) U/L Alkaline Phosphatase 84 (38-126) U/L Troponin I (0.000-0.034) ng/mL Total Protein 7.1 (6.3-8.2) g/dL Albumin 3.8 (3.5-5.0) g/dL 02/03/21 Range/Units 10:40 WBC (3.8-10.6) k/uL RBC (4.30-5.90) m/uL Hgb (13.0-17.5) gm/dL Hct (39.0-53.0) % MCV (80.0-100.0) fL MCH (25.0-35.0) pg MCHC (31.0-37.0) g/dL RDW (11.5-15.5) % Plt Count (150-450) k/uL MPV Neutrophils % % Lymphocytes % % Monocytes % % Eosinophils % % Basophils % % Neutrophils # (1.3-7.7) k/uL Lymphocytes # (1.0-4.8) k/uL Monocytes # (0-1.0) k/uL Eosinophils # (0-0.7) k/uL Basophils # (0-0.2) k/uL PT (9.0-12.0) sec INR (<1.2) APTT (22.0-30.0) sec Sodium (137-145) mmol/L Potassium (3.5-5.1) mmol/L Chloride (98-107) mmol/L Carbon Dioxide (22-30) mmol/L Anion Gap mmol/L BUN (9-20) mg/dL Creatinine (0.66-1.25) mg/dL Est GFR (CKD-EPI)AfAm (>60 ml/min/1.73 sqM) Est GFR (CKD-EPI)NonAf (>60 ml/min/1.73 sqM) Glucose (74-99) mg/dL Calcium (8.4-10.2) mg/dL Magnesium (1.6-2.3) mg/dL Total Bilirubin (0.2-1.3) mg/dL AST (17-59) U/L ALT (4-49) U/L Alkaline Phosphatase (38-126) U/L Troponin I <0.012 (0.000-0.034) ng/mL Total Protein (6.3-8.2) g/dL Albumin (3.5-5.0) g/dL - EKG Data -: EKG Interpreted by Me EKG shows normal: sinus rhythm Rate: normal EKG Comments: Ventricular rate 79 bpm, NV interval 200 ms, QRS duration 84 ms, QTC 410 ms, PRT axes 71/47/72. Sinus rhythm with premature atrial complexes, otherwise normal ECG. - Radiology Data Radiology results: report reviewed, image reviewed Chest CTA: No acute pulmonary wasn't. No persistent finding Effexor (an acute pulmonary wasn't. There is a small left pleural effusion there is stranding throughout the left lung emphysema is changes at the lung apices. Chest x-ray: COPD with left lower lobe infiltrate and small effusion. Disposition Clinical Impression: Pleural effusion Disposition: HOME SELF-CARE Condition: Stable Instructions (If sedation given, give patient instructions): Chest Pain (ED) Additional Instructions: Please return to the Emergency Department if symptoms worsen or any other concerns. Follow-up with primary care 1-2 days. Take antibiotics as prescribed and to complete. Symptoms may take weeks to months to resolve completely. Prescriptions: Levofloxacin [Levaquin] 500 mg PO DAILY #10 tab Is patient prescribed a controlled substance at d/c from ED?: No Referrals: [facility] [Primary Care Provider] - 1-2 days Time of Disposition: 15:14
[2021-02-03] MEDS ORDERED: ACETAMINOPHEN TAB 325 MG TAB PO STA (14:57)
[2021-02-03 15:40] VITALS: BP 133/60; PULSE 83; RESP 18
== END 2021-02-03 15:40 | disposition home or self-care (01) ==
LOC: EC 10:33 → SUPCPDRO 10:33 → EC 15:40
DX: J90 Pleural effusion, not elsewhere classified (principal); I10 Essential (primary) hypertension; E78.5 Hyperlipidemia, unspecified; I25.10 Atherosclerotic heart disease of native coronary artery without angina pectoris; Z87.891 Personal history of nicotine dependence; Z79.51 Long term (current) use of inhaled steroids; Z79.82 Long term (current) use of aspirin; Z79.899 Other long term (current) drug therapy
CPT/HCPCS: 36415; 93005; 80053; 83735; 84484; 85025; 85610; 85730; 71046; 71275; 99285; Q9967

== ENCOUNTER → 2021-08-13 | Outpatient (CLI) | payer OTHER ==
--- NOTE | 2021-08-13 12:12 | FL ---
EXAMINATION TYPE: FL barium swallow w video DATE OF EXAM: 08/13/2021 MODIFIED SWALLOW / DEGLUTITION STUDY CLINICAL HISTORY: Rule out aspiration TECHNIQUE: Deglutition study is performed utilizing thin liquid barium, pudding consistency, and bar ium coated cracker. FINDINGS: There is no evidence of laryngeal penetration or aspiration at the time of the study. Total fluoroscopic time 50 seconds. No images on PACS. IMPRESSION: No laryngeal penetration or aspiration. Please refer to speech therapist notes for furthe r details.
== END | disposition home or self-care (01) ==
LOC: RADFLMAIN 11:28
PROVIDERS: ATTEND Internal Medicine Critical Care Medicine
DX: R13.10 Dysphagia, unspecified (principal)
CPT/HCPCS: 74230

== ENCOUNTER → 2021-09-08 | Outpatient (CLI) | payer OTHER | END | disposition home or self-care (01) | LOC: LABWHC1 10:21 | PROVIDERS: ATTEND Radiology Radiation Oncology | DX: Z08 Encounter for follow-up examination after completed treatment for malignant neoplasm (principal); C61 Malignant neoplasm of prostate; Z79.818 Long term (current) use of other agents affecting estrogen receptors and estrogen levels; Z87.891 Personal history of nicotine dependence; Z92.3 Personal history of irradiation; Z85.46 Personal history of malignant neoplasm of prostate | CPT/HCPCS: 36415; 84153 ==

== ENCOUNTER → 2022-09-07 | Outpatient (CLI) | payer OTHER | END | disposition home or self-care (01) | LOC: LABWHC1 10:08 | PROVIDERS: ATTEND Radiology Radiation Oncology | DX: Z08 Encounter for follow-up examination after completed treatment for malignant neoplasm (principal); C61 Malignant neoplasm of prostate; Z85.46 Personal history of malignant neoplasm of prostate; Z92.3 Personal history of irradiation; Z79.818 Long term (current) use of other agents affecting estrogen receptors and estrogen levels; Z87.891 Personal history of nicotine dependence | CPT/HCPCS: 36415; 84153 ==

== ENCOUNTER → 2022-10-09 | Outpatient (CLI) | payer OTHER ==
--- NOTE | 2022-10-10 07:25 | PE ---
EXAMINATION TYPE: PET CT fusion skull to thigh DATE OF EXAM: 10/09/2022 CLINICAL INDICATION:Male, 81 years old with history of Z08 follow up treatment; TECHNIQUE: Following the intravenous administration of 5.0 mCi of Ga-68 Illuccix (PSMA), whole body images are performed from the skull base to the midthigh. Images are reviewed on the computer in th e coronal, axial, and sagittal planes. Reconstructed rotating images are created on independent work station and reviewed on the computer. A non-contrast CT is performed in conjunction with the PET sc an. COMPARISON: CT 12/06/2017, nuclear medicine bone scan 11/04/2020, PET/CT None, MRI pelvis 03/25/2018 exam measurements of bone scan 08/25/2018. FINDINGS: Mediastinal SUV mean is 1.0. Hepatic parenchyma SUV mean is 2.5. SKULL BASE AND NECK: No suspicious radiotracer activity. CHEST, MEDIASTINUM, AND HILAR REGION: No suspicious radiotracer activity. ABDOMEN AND PELVIS: Mild radiotracer activity within the prostate gland max SUV 3.7 anterior to the left and 3.5 posterio r to the right. OSSEOUS STRUCTURES: Radiotracer uptake within the left pelvic bone correlating with sclerosis on CT s omewhat ill-defined on CT and extending and involving the majority of the left pelvic bone near the s acroiliac joint and down towards the acetabulum into the inferior pubic ramus. Max SUV of the iliac bone near the sacroiliac joint 6.9, inferior pubic ramus max SUV 3.5, acetabulum 6.0. OTHER CT: Bilaterally aphakia. Atherosclerosis of the carotid bifurcations. Coronary artery atheroscl erosis. Mild bilateral gynecomastia. Hepatic steatosis. Clonic diverticulosis. 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 Mild radiotracer ac tivity within the prostate gland itself. No additional sites of metastatic disease definitively visua lized.
== END | disposition home or self-care (01) ==
LOC: RADPETMAIN 13:46
PROVIDERS: ATTEND Radiology Radiation Oncology
DX: Z08 Encounter for follow-up examination after completed treatment for malignant neoplasm (principal); C61 Malignant neoplasm of prostate; Z85.46 Personal history of malignant neoplasm of prostate; Z79.818 Long term (current) use of other agents affecting estrogen receptors and estrogen levels; Z87.891 Personal history of nicotine dependence; Z92.3 Personal history of irradiation
CPT/HCPCS: 78815; A9596